=== PATIENT | female | born 1980 | race Hispanic/Latino ===

== ENCOUNTER 2018-07-17 09:59 | Emergency (ER) | payer SELFPAY ==
[2018-07-17] MEDS ORDERED: LEVALBUTEROL 1.25 MG/3 ML NEB ONE (10:09)
--- NOTE | 2018-07-17 10:55 | RAD REPORT ---
EXAM DESCRIPTION: Som Loera (2 Views)07/17/2018 10:47 am CLINICAL HISTORY: Cough COMPARISON: November 2017 FINDINGS: The lungs appear clear of acute infiltrate. The heart is normal size IMPRESSION: No acute abnormalities displayed
--- NOTE | 2018-07-17 11:55 | ER ---
Nurse's Notes [facility] Name: Jessica Brannon Age: 37 yrs Sex: Female : 1980 Arrival Date: 07/17/2018 Time: 09:58 Bed 17 Private MD: Diagnosis: Unspecified asthma with (acute) exacerbation Presentation: 07/17 10:00 Presenting complaint: EMS states: Pt was out running errands when she had an asthma ph attack, was unable to self administer rescue inhaler or neb tx, bystander called 911, Spo2 94% on RA w/ pauly wheezes. Transition of care: patient was not received from another setting of care. Onset of symptoms was July 17, 2018. Risk Assessment: Do you want to hurt yourself or someone else? Patient reports no desire to harm self or others. Initial Sepsis Screen: Does the patient meet any 2 criteria? No. Patient's initial sepsis screen is negative. Does the patient have a suspected source of infection? No. Patient's initial sepsis screen is negative. Care prior to arrival: Medication(s) given: Albuterol Neb x 2, Atrovent Neb x 1, Normal saline infusion, approx 400 mL IV initiated. 20 GA, in the left antecubital area, Med neb given. Oxygen administered. via a nebulizer mask. 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 - Family history:: not pertinent. - Social history:: Smoking status: Patient/guardian denies using tobacco. - Ebola Screening: : No symptoms or risks identified at this time. - Hospitalizations: : No recent hospitalization is reported. Screenin:04 Abuse screen: Denies threats or abuse. Denies injuries from another. Nutritional ph screening: No deficits noted. Tuberculosis screening: No symptoms or risk factors identified. Fall Risk None identified. Assessment: 10:07 General: Appears in no apparent distress. uncomfortable, obese, well groomed, Behavior ph is calm, cooperative, appropriate for age, Denies fever, feeling ill. Pain: Complains of pain in chest Pain currently is 2 out of 10 on a pain scale. Quality of pain is described as "tightness". Neuro: Level of Consciousness is awake, alert, obeys commands, Oriented to person, place, time, situation, Denies weakness dizziness. Cardiovascular: Capillary refill < 3 seconds in bilateral fingers Patient's skin is warm and dry. Respiratory: Reports shortness of breath at rest Airway is patent Respiratory effort is even, Respiratory pattern is regular, symmetrical, Breath sounds with wheezes bilaterally. GI: No signs and/or symptoms were reported involving the gastrointestinal system. Derm: Skin is intact, is healthy with good turgor, Skin is pink, warm \\T\\ dry. Musculoskeletal: Circulation, motion, and sensation intact. Range of motion: intact in all extremities. 11:30 Reassessment: Patient appears in no apparent distress at this time. Patient and/or ph family updated on plan of care and expected duration. Pain level reassessed. Patient is alert, oriented x 3, equal unlabored respirations, skin warm/dry/pink. Patient states symptoms have improved. Vital Signs: 10:02 BP 126 / 82; Pulse 84; Resp 22; Temp 98.2; Pulse Ox 94% on R/A; Weight 97.52 kg; Height ph 5 ft. 5 in. (165.10 cm); 11:00 BP 121 / 75; Pulse 82; Resp 18; Pulse Ox 100% on Nebulizer Mask; ph 11:52 BP 113 / 70; Pulse 75; Resp 18; Temp 97.9; Pulse Ox 99% on R/A; ph 10:02 Body Mass Index 35.78 (97.52 kg, 165.10 cm) ph ED Course: 09:58 Patient arrived in ED. ss 09:58 Keaton Flynn MD is Attending Physician. rn 10:00 Tayler Alex RN is Primary Nurse. ph 10:02 Triage completed. ph 10:04 Arm band placed on. ph 10:04 Patient has correct armband on for positive identification. Placed in gown. Bed in low ph position. Call light in reach. Side rails up X 1. Pulse ox on. NIBP on. Warm blanket given. 10:44 XRAY Chest Pa And Lat (2 Views) In Process Unspecified. EDMS 11:57 No provider procedures requiring assistance completed. ph 11:58 Maintain EMS IV. Dressing intact. Good blood return noted. Site clean \\T\\ dry. Gauge \\T\\ ph site: 20 LAC. IV discontinued, intact, bleeding controlled, No redness/swelling at site. Pressure dressing applied. Administered Medications: 10:35 Drug: Xopenex 1.25 mg Route: Inhalation; ph 12:19 Follow up: Response: No adverse reaction; Wheezing diminished ph Outcome: 11:55 Discharge ordered by . rn 12:20 Discharged to home ambulatory. ph 12:20 Condition: improved 12:20 Discharge instructions given to patient, Instructed on discharge instructions, follow up and referral plans. Demonstrated understanding of instructions, follow-up care. 12:20 Patient left the ED. ph Signatures: Dispatcher [employer] EDMS Keaton Flynn MD MD rn Smirch, Shelby, RN RN ss Hall, Patricia, RN RN ph
--- NOTE | 2018-07-17 11:56 | EDPHYS ---
Physician Documentation [facility] Name: Jessica Brannon Age: 37 yrs Sex: Female : 1980 Arrival Date: 07/17/2018 Time: 09:58 Bed 17 Private MD: ED Physician Keaton Flynn HPI: 07/17 10:01 This 37 yrs old Female presents to ER via Unassigned with complaints of sob. rn 10:01 The patient has shortness of breath at rest. Onset: The symptoms/episode began/occurred rn this morning. Duration: The symptoms are continuous. Associated signs and symptoms: Pertinent positives: non-productive cough, Pertinent negatives: chest pain, dizziness, fever, hemoptysis, loss of consciousness, vomiting. Severity of symptoms: At their worst the symptoms were moderate in the emergency department the symptoms have improved. The patient has experienced similar episodes in the past. The patient has not recently seen a physician. Reports sob, has asthma, is allergic to steroids, reports tongue swelling and abd bloating, feels better after albuterol/atrovent by EMS. . 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 - Family history:: not pertinent. - Social history:: Smoking status: Patient/guardian denies using tobacco. - Ebola Screening: : No symptoms or risks identified at this time. - Hospitalizations: : No recent hospitalization is reported. ROS: 10:01 Constitutional: Negative for fever, chills, and weight loss, Eyes: Negative for injury, rn pain, redness, and discharge, Neck: Negative for injury, pain, and swelling, Cardiovascular: Negative for chest pain, palpitations, and edema, Respiratory: Negative for pleuritic chest pain, Abdomen/GI: Negative for abdominal pain, nausea, vomiting, diarrhea, and constipation, MS/Extremity: Negative for injury and deformity, Skin: Negative for injury, rash, and discoloration, Neuro: Negative for headache, weakness, numbness, tingling, and seizure. Exam: 10:01 Constitutional: This is a well developed, well nourished patient who is awake, alert, rn and in no acute distress. Head/Face: Normocephalic, atraumatic. Eyes: Pupils equal round and reactive to light, extra-ocular motions intact. Lids and lashes normal. Conjunctiva and sclera are non-icteric and not injected. Cornea within normal limits. Periorbital areas with no swelling, redness, or edema. ENT: no stridor, MMM Cardiovascular: tachycardic, regular, no murmur Respiratory: + diffuse bilateral exp wheezing noted, speaking full sentences Abdomen/GI: Soft, non-tender MS/ Extremity: Pulses equal, no cyanosis. Neurovascular intact. Full, normal range of motion. Equal circumference. Neuro: Awake and alert, GCS 15, oriented to person, place, time, and situation. Cranial nerves II-XII grossly intact. Motor strength 5/5 in all extremities. Sensory grossly intact. Vital Signs: 10:02 BP 126 / 82; Pulse 84; Resp 22; Temp 98.2; Pulse Ox 94% on R/A; Weight 97.52 kg; Height ph 5 ft. 5 in. (165.10 cm); 11:00 BP 121 / 75; Pulse 82; Resp 18; Pulse Ox 100% on Nebulizer Mask; ph 11:52 BP 113 / 70; Pulse 75; Resp 18; Temp 97.9; Pulse Ox 99% on R/A; ph 10:02 Body Mass Index 35.78 (97.52 kg, 165.10 cm) ph MDM: 09:58 Patient medically screened. rn 11:10 Differential diagnosis: asthma. rn 11:54 Data reviewed: vital signs, nurses notes, radiologic studies, plain films, and as a rn result, I will discharge patient. Counseling: I had a detailed discussion with the patient and/or guardian regarding: the historical points, exam findings, and any diagnostic results supporting the discharge/admit diagnosis, radiology results, the need for outpatient follow up, to return to the emergency department if symptoms worsen or persist or if there are any questions or concerns that arise at home. Response to treatment: the patient's symptoms have markedly improved after treatment, and as a result, I will discharge patient. Special discussion: I discussed with the patient/guardian in detail that at this point there is no indication for admission to the hospital. It is understood, however, that if the symptoms persist or worsen the patient needs to return immediately for re-evaluation. ED course: Pt still states allergic to steroids, on abx for sinus infection, neg cxr, feels much better, will dc home with inhaler use and pcp f/u. . 07/17 09:59 Order name: XRAY Chest Pa And Lat (2 Views); Complete Time: 11:00 rn Administered Medications: 10:35 Drug: Xopenex 1.25 mg Route: Inhalation; ph 12:19 Follow up: Response: No adverse reaction; Wheezing diminished ph Disposition: 07/17/18 11:55 Discharged to Home. Impression: Unspecified asthma with (acute) exacerbation. - Condition is Stable. - Discharge Instructions: Asthma, Adult, Bronchospasm, Adult, How to Use an Inhaler. - Medication Reconciliation Form, Thank You Letter, Antibiotic Education, Prescription Opioid Use, Work release form form. - Follow up: Private Physician; When: As needed; Reason: Recheck today's complaints, Re-evaluation by your physician. - Problem is new. - Symptoms have improved. Signatures: Dispatcher [employer] EDMS Keaton Flynn MD MD rn AlexTayler RN RN ph Corrections: (The following items were deleted from the chart) 12:20 11:55 07/17/2018 11:55 Discharged to Home. Impression: Unspecified asthma with (acute) ph exacerbation. Condition is Stable. Forms are Medication Reconciliation Form, Thank You Letter, Antibiotic Education, Prescription Opioid Use. Follow up: Private Physician; When: As needed; Reason: Recheck today's complaints, Re-evaluation by your physician. Problem is new. Symptoms have improved. rn
[2018-07-17 12:27] VITALS: BP 113/70; TEMP 97.9; O2SAT 99
== END 2018-07-17 12:20 | disposition home or self-care (01) ==
LOC: ER 09:59
DX: J45.901 Unspecified asthma with (acute) exacerbation (principal)
CPT/HCPCS: 71046; 99284

== ENCOUNTER 2018-07-22 23:26 | Emergency (ER) | payer SELFPAY ==
[2018-07-22] MEDS ORDERED: LEVALBUTEROL 1.25 MG/3 ML NEB ONE (23:44)
[2018-07-22] MEDS ORDERED: MAGNESIUM SULFATE 1 gm IVPB 1 GM/100 ML BAG IV ONE (23:44)
[2018-07-22] MEDS ORDERED: IPRATROPIUM BROM 0.5MG/2.5ML ONE (23:44)
[2018-07-22] MEDS ORDERED: NA CHLORIDE 0.9% 1,000 ML ONE (23:45)
[2018-07-23] MEDS ORDERED: IPRATROPIUM BROM 0.5MG/2.5ML ONE (02:23)
[2018-07-23] MEDS ORDERED: ALBUTEROL 2.5 MG/3 ML NEB SOL ONE (02:23)
--- NOTE | 2018-07-23 03:03 | EDPHYS ---
Physician Documentation [facility] Name: Jessica Brannon Age: 37 yrs Sex: Female : 1980 Arrival Date: 07/22/2018 Time: 23:31 Bed 14 Private MD: ED Physician Keaton Flynn HPI: 07/22 23:48 This 37 yrs old Female presents to ER via Wheelchair with complaints of Asthma rn Exacerbation. 23:48 The patient presents to the emergency department with wheezing, that began without any rn particular precipitating event. Onset: The symptoms/episode began/occurred today. Modifying factors: The symptoms are alleviated by nothing, the symptoms are aggravated by nothing. Severity of symptoms: At their worst the symptoms were mild in the emergency department the symptoms are unchanged. The patient has experienced similar episodes in the past. The patient has been recently seen by a physician: The patient has been recently seen at the [facility] Emergency Department. 23:48 Seen by me a few days ago, felt better, returns for wheezing again, again states rn allergic to steroids and cannot take them. Not as bad as she felt last time. . 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 - Social history:: Smoking status: Patient/guardian denies using tobacco. - Ebola Screening: : No symptoms or risks identified at this time. - Family history:: not pertinent. - Hospitalizations: : No recent hospitalization is reported. ROS: 23:48 Constitutional: Negative for fever, chills, and weight loss, Eyes: Negative for injury, rn pain, redness, and discharge, Neck: Negative for injury, pain, and swelling, Cardiovascular: Negative for chest pain, palpitations, and edema, Respiratory: Negative for pleuritic chest pain Abdomen/GI: Negative for abdominal pain, nausea, vomiting, diarrhea, and constipation, MS/Extremity: Negative for injury and deformity, Skin: Negative for injury, rash, and discoloration, Neuro: Negative for headache, weakness, numbness, tingling, and seizure. Exam: 23:48 Constitutional: This is a well developed, well nourished patient who is awake, alert, rn + mild tachypnea Head/Face: Normocephalic, atraumatic. Eyes: Pupils equal round and reactive to light, extra-ocular motions intact. Lids and lashes normal. Conjunctiva and sclera are non-icteric and not injected. Cornea within normal limits. Periorbital areas with no swelling, redness, or edema. ENT: MMM Cardiovascular: Regular rate and rhythm with a normal S1 and S2. No gallops, murmurs, or rubs. Normal PMI, no JVD. No pulse deficits. Respiratory: mild tachypnea with bilateral mild wheezing noted, no retractions, speaking full sentences Abdomen/GI: Soft, non-tender, with normal bowel sounds. No distension or tympany. No guarding or rebound. No evidence of tenderness throughout. Skin: Warm, dry with normal turgor. Normal color with no rashes, no lesions, and no evidence of cellulitis. MS/ Extremity: Pulses equal, no cyanosis. Neurovascular intact. Full, normal range of motion. Equal circumference. Neuro: Awake and alert, GCS 15, oriented to person, place, time, and situation. Cranial nerves II-XII grossly intact. Motor strength 5/5 in all extremities. Sensory grossly intact. Cerebellar exam normal. Normal gait. Vital Signs: 23:35 BP 137 / 97; Pulse 100; Resp 22; Pulse Ox 95% on R/A; Weight 95.25 kg; Height 5 ft. 5 lp1 in. (165.10 cm); Pain 0/10; 07/23 01:00 BP 110 / 69; Pulse 85; Resp 18; Pulse Ox 97% ; jb4 02:00 BP 107 / 88; Pulse 72; Resp 20; Pulse Ox 98% on R/A; jb4 03:08 BP 131 / 80; Pulse 89; Resp 18; Pulse Ox 100% on R/A; jb4 07/22 23:35 Body Mass Index 34.95 (95.25 kg, 165.10 cm) lp1 MDM: 07/22 23:31 Patient medically screened. rn 07/23 03:00 Differential diagnosis: acute asthma, reactive airway. Data reviewed: vital signs, rn nurses notes, lab test result(s), radiologic studies, plain films, and as a result, I will discharge patient. Counseling: I had a detailed discussion with the patient and/or guardian regarding: the historical points, exam findings, and any diagnostic results supporting the discharge/admit diagnosis, radiology results, the need for outpatient follow up, to return to the emergency department if symptoms worsen or persist or if there are any questions or concerns that arise at home. Response to treatment: the patient's symptoms have markedly improved after treatment, and as a result, I will discharge patient. 07/22 23: Order name: XRAY Chest (1 view) rn 07/22 23: Order name: IV Start; Complete Time: 00:03 rn Administered Medications: 07/22 23: Drug: Xopenex (3) 1.25 mg Route: Inhalation; lp1 23:44 Drug: AtroVENT Aerosol 0.5 mg Route: Inhalation; lp1 23:51 Drug: NS 0.9% 1000 ml Route: IV; Rate: 1000 ml; Site: left forearm; 4 07/23 00:51 Follow up: Response: No adverse reaction; IV Status: Completed infusion 4 07/22 23:51 Drug: Magnesium Sulfate 1 grams Route: IVPB; Infused Over: 1 hrs; Site: left forearm; 4 07/23 00:51 Follow up: Response: No adverse reaction; IV Status: Completed infusion jb4 02:18 Drug: Albuterol 2.5 mg Route: Inhalation; jb4 03:16 Follow up: Response: No adverse reaction; Wheezing diminished jb4 02:18 Drug: AtroVENT Aerosol 0.5 mg Route: Inhalation; jb4 03:16 Follow up: Response: No adverse reaction; Wheezing diminished jb4 Disposition: 07/23/18 03:02 Discharged to Home. Impression: Asthma. - Condition is Stable. - Discharge Instructions: Asthma, Acute Bronchospasm. - Prescriptions for Albuterol Sulfate 2.5 mg /3 mL (0.083 %) Inhalation Solution for Nebulization - inhale 1 unit by NEBULIZATION route every 8 hours As needed; 1 box. - Medication Reconciliation Form, Thank You Letter, Antibiotic Education, Prescription Opioid Use, Work release form form. - Follow up: Private Physician; When: As needed; Reason: Recheck today's complaints, Re-evaluation by your physician. - Problem is new. - Symptoms have improved. Signatures: Dispatcher [employer] EDKeaton Zavala MD MD rn Pena, Laura, RN RN lp1 Brian Hernandez RN RN jb4 Corrections: (The following items were deleted from the chart) 03:18 03:02 07/23/2018 03:02 Discharged to Home. Impression: Asthma. Condition is Stable. jb4 Forms are Medication Reconciliation Form, Thank You Letter, Antibiotic Education, Prescription Opioid Use. Follow up: Private Physician; When: As needed; Reason: Recheck today's complaints, Re-evaluation by your physician. Problem is new. Symptoms have improved. rn
--- NOTE | 2018-07-23 03:03 | ER ---
Nurse's Notes [facility] Name: Jessica Brannon Age: 37 yrs Sex: Female : 1980 Arrival Date: 07/22/2018 Time: 23:31 Bed 14 Private MD: Diagnosis: Asthma Presentation: 07/22 23:32 Presenting complaint: Patient states: Difficulty breathing that began this afternoon; lp1 Hx of asthma; feeling short of breath. Transition of care: patient was not received from another setting of care. Onset of symptoms was July 22, 2018. Risk Assessment: Do you want to hurt yourself or someone else? Patient reports no desire to harm self or others. Initial Sepsis Screen: Does the patient meet any 2 criteria? No. Patient's initial sepsis screen is negative. Does the patient have a suspected source of infection? No. Patient's initial sepsis screen is negative. Care prior to arrival: None. 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 - Social history:: Smoking status: Patient/guardian denies using tobacco. - Ebola Screening: : No symptoms or risks identified at this time. - Family history:: not pertinent. - Hospitalizations: : No recent hospitalization is reported. Screenin:35 Abuse screen: Denies threats or abuse. Denies injuries from another. Nutritional lp1 screening: No deficits noted. Tuberculosis screening: No symptoms or risk factors identified. Fall Risk None identified. Assessment: 23:51 General: Appears in no apparent distress. uncomfortable, Behavior is cooperative, jb4 anxious. Pain: Denies pain. Neuro: Level of Consciousness is awake, alert, obeys commands, Oriented to person, place, time, situation. Cardiovascular: Heart tones S1 S2 present Patient's skin is warm and dry. Respiratory: Airway is patent Respiratory effort is even, labored, Respiratory pattern is regular, symmetrical, Breath sounds are diminished bilaterally. Breath sounds with wheezes bilaterally. GI: No signs and/or symptoms were reported involving the gastrointestinal system. : No signs and/or symptoms were reported regarding the genitourinary system. EENT: No signs and/or symptoms were reported regarding the EENT system. Derm: Skin is intact, Skin is pink, warm \T\ dry. Musculoskeletal: No signs and/or symptoms reported regarding the musculoskeletal system. 07/23 01:00 Reassessment: Patient appears in no apparent distress at this time. Patient and/or jb4 family updated on plan of care and expected duration. Pain level reassessed. Patient is alert, oriented x 3, equal unlabored respirations, skin warm/dry/pink. Patient states feeling better. Patient states symptoms have improved. 02:00 Reassessment: Patient appears in no apparent distress at this time. Patient and/or jb4 family updated on plan of care and expected duration. Pain level reassessed. Patient is alert, oriented x 3, equal unlabored respirations, skin warm/dry/pink. Patient states feeling better. Patient states symptoms have improved. 02:00 Respiratory: Breath sounds with wheezes bilaterally. jb4 03:08 Reassessment: Patient appears in no apparent distress at this time. Patient and/or jb4 family updated on plan of care and expected duration. Pain level reassessed. Patient is alert, oriented x 3, equal unlabored respirations, skin warm/dry/pink. Wheezing has improved. Patient states feeling better. Patient states symptoms have improved. Vital Signs: 07/22 23:35 BP 137 / 97; Pulse 100; Resp 22; Pulse Ox 95% on R/A; Weight 95.25 kg; Height 5 ft. 5 lp1 in. (165.10 cm); Pain 0/10; 07/23 01:00 BP 110 / 69; Pulse 85; Resp 18; Pulse Ox 97% ; jb4 02:00 BP 107 / 88; Pulse 72; Resp 20; Pulse Ox 98% on R/A; jb4 03:08 BP 131 / 80; Pulse 89; Resp 18; Pulse Ox 100% on R/A; jb4 07/22 23:35 Body Mass Index 34.95 (95.25 kg, 165.10 cm) lp1 ED Course: 07/22 23:31 Patient arrived in ED. rn 23:31 Keaton Flynn MD is Attending Physician. rn 23:33 Triage completed. lp1 23:35 Arm band placed on right wrist. lp1 23:35 Patient has correct armband on for positive identification. Placed in gown. Bed in low lp1 position. Call light in reach. Pulse ox on. NIBP on. 23:40 Brian Hernandez, RN is Primary Nurse. jb4 23:51 Inserted saline lock: 22 gauge in left forearm, using aseptic technique. jb4 07/23 01:48 XRAY Chest (1 view) In Process Unspecified. EDMS 03:17 No provider procedures requiring assistance completed. IV discontinued, intact, jb4 bleeding controlled. Administered Medications: 07/22 23:44 Drug: Xopenex (3) 1.25 mg Route: Inhalation; lp1 23:44 Drug: AtroVENT Aerosol 0.5 mg Route: Inhalation; lp1 23:51 Drug: NS 0.9% 1000 ml Route: IV; Rate: 1000 ml; Site: left forearm; jb4 07/23 00:51 Follow up: Response: No adverse reaction; IV Status: Completed infusion jb4 07/22 23:51 Drug: Magnesium Sulfate 1 grams Route: IVPB; Infused Over: 1 hrs; Site: left forearm; jb4 07/23 00:51 Follow up: Response: No adverse reaction; IV Status: Completed infusion jb4 02:18 Drug: Albuterol 2.5 mg Route: Inhalation; jb4 03:16 Follow up: Response: No adverse reaction; Wheezing diminished jb4 02:18 Drug: AtroVENT Aerosol 0.5 mg Route: Inhalation; jb4 03:16 Follow up: Response: No adverse reaction; Wheezing diminished jb4 Outcome: 03:02 Discharge ordered by . rn 03:17 Discharged to home ambulatory. jb4 03:17 Condition: stable 03:17 Discharge instructions given to patient, Instructed on discharge instructions, follow up and referral plans. medication usage, Demonstrated understanding of instructions, follow-up care, medications, Prescriptions given X 1. 03:18 Patient left the ED. jb4 Signatures: Dispatcher [employer] EDMS Keaton Flynn MD MD rn Pena, Laura, RN RN lp1 Brian Hernandez, RN RN jb4 Corrections: (The following items were deleted from the chart) 02:11 07/22 23:51 Respiratory: Airway is patent Respiratory effort is even, labored, jb4 Respiratory pattern is regular, symmetrical, Breath sounds with wheezes bilaterally. jb4 07/23 03:16 02:54 Response: No adverse reaction; Wheezing unchanged jb4 jb4 03:08 Reassessment: Patient appears in no apparent distress at this time. No changes jb4 from previously documented assessment. Patient and/or family updated on plan of care and expected duration. Pain level reassessed. Patient is alert, oriented x 3, equal unlabored respirations, skin warm/dry/pink. Patient states feeling better. jb4 02:55 Response: No adverse reaction; Wheezing unchanged jb4 jb4
[2018-07-23 03:26] VITALS: BP 131/80; O2SAT 100
--- NOTE | 2018-07-23 08:08 | RAD REPORT ---
EXAM DESCRIPTION: RAD - Chest Single View - 07/23/2018 1:48 am CLINICAL HISTORY: Cough, dyspnea COMPARISON: July 17 TECHNIQUE: AP portable chest image was obtained 2352 hours . FINDINGS: Lung volumes are low. Atelectasis changes are present. No focal infiltrate, mass or failur e finding. Heart and vasculature are normal. No measurable pleural effusion and no pneumothorax. No g ross bony abnormality seen. No acute aortic findings suspected. IMPRESSION: Minimal atelectasis with no acute cardiopulmonary finding.
== END 2018-07-23 03:18 | disposition home or self-care (01) ==
LOC: ER 23:26
DX: J45.909 Unspecified asthma, uncomplicated (principal); Z88.8 Allergy status to other drugs, medicaments and biological substances
CPT/HCPCS: 71045; 96365; 99284; J3475; J7030

== ENCOUNTER 2018-07-28 00:08 | Inpatient (IN) | payer SELFPAY ==
[2018-07-28] MEDS ORDERED: DEXAMETHASONE 4 MG/ML VIAL ONE (00:18)
[2018-07-28] MEDS ORDERED: Magnesium Sulfate 2gm IVPB 2 G/50 ML BAG IV ONE (00:18)
--- NOTE | 2018-07-28 00:29 | ER ---
Nurse's Notes [facility] Name: Jessica Brannon Age: 37 yrs Sex: Female : 1980 Arrival Date: 07/28/2018 Time: 00:10 Bed 16 Private MD: Diagnosis: Asthma;Hypoxemia Presentation: 07/28 00:15 Presenting complaint: Patient states: SHORTNESS OF BREATH. Transition of care: patient bp was not received from another setting of care. Onset of symptoms was July 27, 2018 at 22:00. Risk Assessment: Do you want to hurt yourself or someone else? Patient reports no desire to harm self or others. Initial Sepsis Screen: Does the patient meet any 2 criteria? RR > 20 per min. No. Patient's initial sepsis screen is negative. Does the patient have a suspected source of infection? No. Patient's initial sepsis screen is negative. Care prior to arrival: None. 00:15 Method Of Arrival: Wheelchair bp 00:15 Acuity: JACINTA 2 bp Triage Assessment: 00:15 General: Appears distressed, uncomfortable, obese, Behavior is cooperative, appropriate bp for age, agitated, anxious. Pain: Denies pain. EENT: No deficits noted. Neuro: Level of Consciousness is awake, alert, obeys commands, Oriented to person, place, time, situation, Appropriate for age. Cardiovascular: No deficits noted. 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 GI: No signs and/or symptoms were reported involving the gastrointestinal system. : No signs and/or symptoms were reported regarding the genitourinary system. Derm: No deficits noted. Musculoskeletal: Circulation, motion, and sensation intact. Range of motion: intact in all extremities. 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 - Social history:: Smoking status: Patient/guardian denies using tobacco. - Ebola Screening: : Patient negative for fever greater than or equal to 101.5 degrees Fahrenheit, and additional compatible Ebola Virus Disease symptoms Patient denies exposure to infectious person Patient denies travel to an Ebola-affected area in the 21 days before illness onset No symptoms or risks identified at this time. - Family history:: not pertinent. Screenin:21 Abuse screen: Denies threats or abuse. Denies injuries from another. Nutritional bp screening: No deficits noted. Tuberculosis screening: No symptoms or risk factors identified. Fall Risk None identified. Assessment: 00:20 General: 37YO HF P/W SOB, H/O ASTHMA. PT UNABLE TO SPEAK IN COMPLETE SENTENCES, 79% ON bp RA ON ARRIVAL, STATES NO RELIEF WITH HOME NEB TREATMENTS. Cardiovascular: Rhythm is sinus rhythm. Respiratory: Airway is patent Respiratory effort is labored, Respiratory pattern is symmetrical, tachypnea Breath sounds with wheezes bilaterally. 00:47 Reassessment: Patient and/or family updated on plan of care and expected duration. Pain ea level reassessed. Pt placed on bipap per respiratory, pt tolerating well. Alert and oriented x 4. No s/s of pain at this time. 01:26 Reassessment: : JASON BARNES [phone]. ea 01:59 Reassessment: Patient and/or family updated on plan of care and expected duration. Pain ea level reassessed. Pt remains on bipap, pt tolerating well. Denies pain. Patient alert and oriented x 3. Denies pain at this time Patient states symptoms have improved. Vital Signs: 00:15 Pulse Ox 79% on R/A; Weight 86.18 kg; Height 5 ft. 5 in. (165.10 cm); bp 00:48 BP 102 / 57; Pulse 101; Resp 22; Pulse Ox 99% on BiPAP; ea 01:45 BP 106 / 68; Pulse 98; Resp 20; Temp 97.2(TE); Pulse Ox 100% on BiPAP; Pain 0/10; ea 00:15 Body Mass Index 31.62 (86.18 kg, 165.10 cm) bp ED Course: 00:10 Patient arrived in ED. ds1 00:15 Joshua Grier PA is PHCP. cp 00:15 Joshua Fuentes MD is Attending Physician. cp 00:15 Arm band placed on. bp 00:16 Triage completed. bp 00:20 Inserted saline lock: 20 gauge in right antecubital area, using aseptic technique. bp Blood collected. 00:21 Patient has correct armband on for positive identification. Placed in gown. Bed in low bp position. Call light in reach. Side rails up X2. Adult w/ patient. 00:23 Ilene Zheng RN is Primary Nurse. ea 00:27 Raghu Cantrell MD is Hospitalizing Provider. shaina 00:39 X-ray completed. Portable x-ray completed in exam room. Patient tolerated procedure kw well. 00:41 XRAY Chest (1 view) In Process Unspecified. EDMS 02:04 No provider procedures requiring assistance completed. Patient admitted, IV remains in ea place. Administered Medications: 00:20 Drug: Albuterol - atroVENT (3:1) (2.5 mg - 0.5 mg) 3 ml Route: Nebulizer; bp 01:06 Follow up: Response: No adverse reaction; Wheezing diminished ea 00:24 Drug: Decadron - Dexamethasone 10 mg Route: IVP; Site: right antecubital; ea 01:06 Follow up: Response: No adverse reaction; Marked relief of symptoms ea 00:26 Drug: Magnesium Sulfate 2 grams Route: IVPB; Infused Over: 2 hrs; Site: right ea antecubital; 02:08 Follow up: Response: No adverse reaction; IV Status: Completed infusion; IV Intake: 50mlea 00:41 Drug: Zofran 4 mg Route: IVP; Site: right antecubital; ea 01:09 Follow up: Response: No adverse reaction; Nausea is decreased ea 00:42 Drug: Rocephin - (cefTRIAXone) 1 grams Route: IVPB; Infused Over: 30 mins; Site: right ea antecubital; 01:06 Follow up: Response: No adverse reaction; No adverse reaction, administered IVP; No ea adverse reaction, administered slow IVP over 5 min; IV Status: Completed infusion 00:42 Drug: Zithromax 500 mg Route: IVPB; Infused Over: 1 hrs; Site: right antecubital; bp 01:48 Follow up: Response: No adverse reaction; IV Status: Completed infusion; IV Intake: ea 250ml 01:47 Drug: Albuterol 5 mg Route: Inhalation; ea 02:09 Follow up: Response: No adverse reaction; Marked relief of symptoms ea Intake: 01:48 IV: 250ml; Total: 250ml. ea 02:08 IV: 50ml; Total: 300ml. ea Outcome: 00:28 Decision to Hospitalize by Provider. shaina 02:04 Instructed on the need for admit, Demonstrated understanding of instructions. ea 02:29 Patient left the ED. ea Signatures: Dispatcher [employer] EDFL Joshua Fuentes MD MD cha Sanford, Demi ds1 Diya Buckner Corey, PA PA cp Antunez, Elena, RN RN Gume Espana, RN RN bp
--- NOTE | 2018-07-28 00:29 | EDPHYS ---
Physician Documentation [facility] Name: Jessica Brannon Age: 37 yrs Sex: Female : 1980 Arrival Date: 07/28/2018 Time: 00:10 Bed 16 Private MD: ED Physician Joshua Fuentes HPI: 07/28 00:20 This 37 yrs old Female presents to ER via Wheelchair with complaints of shaina Breathing Difficulty. 00:20 The patient has shortness of breath at rest, with light activity. Onset: The shaina symptoms/episode began/occurred 2 hour(s) ago. Duration: The symptoms are continuous, and are steadily getting worse. The patient's shortness of breath has no apparent modifying factors. Associated signs and symptoms: Pertinent positives: non-productive cough. Severity of symptoms: At their worst the symptoms were severe in the emergency department the symptoms are unchanged. The patient has experienced similar episodes in the past, several times. 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 - Social history:: Smoking status: Patient/guardian denies using tobacco. - Ebola Screening: : Patient negative for fever greater than or equal to 101.5 degrees Fahrenheit, and additional compatible Ebola Virus Disease symptoms Patient denies exposure to infectious person Patient denies travel to an Ebola-affected area in the 21 days before illness onset No symptoms or risks identified at this time. - Family history:: not pertinent. ROS: 00:20 Constitutional: Negative for fever, chills, and weight loss, Eyes: Negative for injury, shaina pain, redness, and discharge, ENT: Negative for injury, pain, and discharge, Neck: Negative for injury, pain, and swelling, Cardiovascular: Negative for chest pain, palpitations, and edema, Abdomen/GI: Negative for abdominal pain, nausea, vomiting, diarrhea, and constipation, Back: Negative for injury and pain, : Negative for injury, bleeding, discharge, and swelling, MS/Extremity: Negative for injury and deformity, Skin: Negative for injury, rash, and discoloration, Neuro: Negative for headache, weakness, numbness, tingling, and seizure, Psych: Negative for depression, anxiety, suicide ideation, homicidal ideation, and hallucinations, Allergy/Immunology: Negative for hives, rash, and allergies, Endocrine: Negative for neck swelling, polydipsia, polyuria, polyphagia, and marked weight changes, Hematologic/Lymphatic: Negative for swollen nodes, abnormal bleeding, and unusual bruising. 00:20 Respiratory: Positive for cough, shortness of breath, wheezing, inspiratory, expiratory. Exam: 00:20 Constitutional: This is a well developed, well nourished patient who is awake, alert, shaina and in no acute distress. Head/Face: Normocephalic, atraumatic. Eyes: Pupils equal round and reactive to light, extra-ocular motions intact. Lids and lashes normal. Conjunctiva and sclera are non-icteric and not injected. Cornea within normal limits. Periorbital areas with no swelling, redness, or edema. ENT: Nares patent. No nasal discharge, no septal abnormalities noted. Tympanic membranes are normal and external auditory canals are clear. Oropharynx with no redness, swelling, or masses, exudates, or evidence of obstruction, uvula midline. Mucous membranes moist. Neck: Trachea midline, no thyromegaly or masses palpated, and no cervical lymphadenopathy. Supple, full range of motion without nuchal rigidity, or vertebral point tenderness. No Meningismus. Chest/axilla: Normal chest wall appearance and motion. Nontender with no deformity. No lesions are appreciated. Abdomen/GI: Soft, non-tender, with normal bowel sounds. No distension or tympany. No guarding or rebound. No evidence of tenderness throughout. Back: No spinal tenderness. No costovertebral tenderness. Full range of motion. Female : Normal external genitalia. Skin: Warm, dry with normal turgor. Normal color with no rashes, no lesions, and no evidence of cellulitis. MS/ Extremity: Pulses equal, no cyanosis. Neurovascular intact. Full, normal range of motion. Neuro: Awake and alert, GCS 15, oriented to person, place, time, and situation. Cranial nerves II-XII grossly intact. Motor strength 5/5 in all extremities. Sensory grossly intact. Cerebellar exam normal. Normal gait. Psych: Awake, alert, with orientation to person, place and time. Behavior, mood, and affect are within normal limits. 00:20 Cardiovascular: Rate: tachycardic, Rhythm: regular, Pulses: Pulses are 4+ in bilateral radial, brachial, femoral, popliteal, posterior tibial and and dorsalis pedis arteries.. Heart sounds: normal, Edema: is not appreciated, JVD: 00:25 Respiratory: moderate respiratory distress is noted, Respirations: labored breathing, [facility] Breath sounds: decreased breath sounds, rhonchi, wheezing: expiratory 00:25 Musculoskeletal/extremity: DVT Exam: No signs of deep vein thrombosis. no pain, no swelling, no tenderness, negative Homans' sign noted on exam, no appreciated bluish discoloration, no erythema, no increased warmth. Vital Signs: 00:15 Pulse Ox 79% on R/A; Weight 86.18 kg; Height 5 ft. 5 in. (165.10 cm); bp 00:48 BP 102 / 57; Pulse 101; Resp 22; Pulse Ox 99% on BiPAP; ea 01:45 BP 106 / 68; Pulse 98; Resp 20; Temp 97.2(TE); Pulse Ox 100% on BiPAP; Pain 0/10; ea 00:15 Body Mass Index 31.62 (86.18 kg, 165.10 cm) bp MDM: 00:17 Patient medically screened. cp 00:23 Data reviewed: vital signs, nurses notes, lab test result(s), EKG, radiologic studies, shaina plain films. 07/28 00:20 Order name: Basic Metabolic Panel; Complete Time: [facility] 07/28 00:20 Order name: CBC with Diff; Complete Time: : [facility] 07/28 00:20 Order name: LFT's; Complete Time: [facility] 07/28 00:20 Order name: Magnesium; Complete Time: : [facility] 07/28 00:20 Order name: NT PRO-BNP; Complete Time: : [facility] 07/28 00:20 Order name: PT-INR; Complete Time: : [facility] 07/28 00:20 Order name: Troponin (emerg Dept Use Only); Complete Time: : [facility] 07/28 00:20 Order name: XRAY Chest (1 view) [facility] 07/28 00:20 Order name: Blood Culture Adult (2) [facility] 07/28 00:20 Order name: BIPAP [facility] 07/28 00:20 Order name: ABG; Complete Time: 01:18 [facility] 07/28 00:49 Order name: Urinalysis [facility] 07/28 01:53 Order name: Urine Dipstick--Ancillary (enter results) [place] 07/28 00:20 Order name: EKG; Complete Time: 00:21 [facility] 07/28 00:20 Order name: Cardiac monitoring; Complete Time: 00:24 [facility] 07/28 00:20 Order name: EKG - Nurse/Tech; Complete Time: 00:24 [facility] 07/28 00:20 Order name: IV Saline Lock; Complete Time: 00:24 [facility] 07/28 00:20 Order name: Labs collected and sent; Complete Time: 00:24 [facility] 07/28 00:20 Order name: O2 Per Protocol; Complete Time: 00:24 [facility] 07/28 00:20 Order name: O2 Sat Monitoring; Complete Time: 00:24 [facility] 07/28 00:36 Order name: CONS Physician Consult EDOH 07/28 00:48 Order name: Regular EDOH Administered Medications: 00:20 Drug: Albuterol - atroVENT (3:1) (2.5 mg - 0.5 mg) 3 ml Route: Nebulizer; bp 01:06 Follow up: Response: No adverse reaction; Wheezing diminished ea 00:24 Drug: Decadron - Dexamethasone 10 mg Route: IVP; Site: right antecubital; ea 01:06 Follow up: Response: No adverse reaction; Marked relief of symptoms ea 00:26 Drug: Magnesium Sulfate 2 grams Route: IVPB; Infused Over: 2 hrs; Site: right ea antecubital; 02:08 Follow up: Response: No adverse reaction; IV Status: Completed infusion; IV Intake: 50mlea 00:41 Drug: Zofran 4 mg Route: IVP; Site: right antecubital; ea 01:09 Follow up: Response: No adverse reaction; Nausea is decreased ea 00:42 Drug: Rocephin - (cefTRIAXone) 1 grams Route: IVPB; Infused Over: 30 mins; Site: right ea antecubital; 01:06 Follow up: Response: No adverse reaction; No adverse reaction, administered IVP; No ea adverse reaction, administered slow IVP over 5 min; IV Status: Completed infusion 00:42 Drug: Zithromax 500 mg Route: IVPB; Infused Over: 1 hrs; Site: right antecubital; bp 01:48 Follow up: Response: No adverse reaction; IV Status: Completed infusion; IV Intake: ea 250ml 01:47 Drug: Albuterol 5 mg Route: Inhalation; ea 02:09 Follow up: Response: No adverse reaction; Marked relief of symptoms ea Disposition: 07/28/18 00:28 Hospitalization ordered by Raghu Cantrell for Inpatient Admission. Preliminary diagnosis are Asthma, Hypoxemia. - Bed requested for Intensive Care Unit. - Status is Inpatient Admission. ea - Condition is Serious. - Problem is new. - Symptoms have improved. UTI on Admission? No Signatures: Dispatcher [employer] EDMS Ericka Cuevas RN RN mw Anderson, Corey, MD MD cha Page, Corey, PA PA cp Antunez, Elena, RN RN Gume Espana RN RN bp Corrections: (The following items were deleted from the chart) 00:35 00:28 Hospitalization Ordered by Raghu Cantrell MD for Inpatient Admission. Preliminary diagnosis is Asthma; Hypoxemia. Bed requested for Intensive Care Unit. Status is Inpatient Admission. Condition is Serious. Problem is new. Symptoms have improved. UTI on Admission? No. [facility] 02:29 00:35 07/28/2018 00:28 Hospitalization Ordered by Raghu Cantrell MD for Inpatient ea Admission. Preliminary diagnosis is Asthma; Hypoxemia. Bed requested for Intensive Care Unit. Status is Inpatient Admission. Condition is Serious. Problem is new. Symptoms have improved. UTI on Admission? No. mw
[2018-07-28 00:33] LABS: Arterial Blood Carboxyhemoglob 0.9 % (0-1.5); Blood Gas Oxyhemoglobin 89.2 % (94-97); Blood O2 Saturation 90.9 % (92-98.5)
[2018-07-28] MEDS ORDERED: AZITHROMYCIN 500 MG/250 ML BAG ONE (00:39)
[2018-07-28] MEDS ORDERED: CEFTRIAXONE/SWI 1gm 1 GM/10 ML SYR ONE (00:39)
[2018-07-28] MEDS ORDERED: ONDANSETRON 4 MG/2 ML VIAL ONE (00:43)
[2018-07-28] MEDS ORDERED: MAGNESIUM HYDROXIDE 8% 30 ML PO PRN (00:46)
[2018-07-28] MEDS ORDERED: ALPRAZOLAM 0.25 MG TABLET PO PRN (00:46)
[2018-07-28] MEDS ORDERED: ONDANSETRON 4 MG/2 ML VIAL IV PRN (00:46)
[2018-07-28] MEDS ORDERED: ACETAMINOPHEN 500 MG TAB PO PRN (00:46)
[2018-07-28] MEDS ORDERED: NA CHLORIDE 0.9% 1,000 ML IV SCH (01:00)
[2018-07-28] MEDS: IPRATROPIUM BROM 0.5MG/2.5ML NEB SCH ×4 (01:01→19:30)
[2018-07-28] MEDS: ALBUTEROL 2.5 MG/3 ML NEB SOL NEB SCH ×4 (01:02→19:30)
[2018-07-28 01:03] LABS: Absolute Lymphocytes (CBC) 3.9 K/uL (0.7-4.9); Absolute Monocytes 1.1 K/uL (0.1-1.3); Absolute Neutrophil 7.5 K/uL (1.8-8.0); Eosinophils % 8.2 % (0-4.4); Hematocrit 45.4 % (36.0-45.0); Lymphocytes % 28.2 % (15.3-44.8); MCH 30.1 pg (27.0-35.0); MCV 88.2 fL (80-100); Monocytes % 7.8 % (3.3-12.3); RBC Red Blood Cell Count 5.15 M/uL (3.86-4.86)
[2018-07-28 01:06] LABS: Protime INR 0.95
[2018-07-28 01:19] LABS: ALT/SGPT 73 U/L (12-78); AST/SGOT 36 U/L (15-37); Albumin 4.1 g/dL (3.4-5.0); Alkaline Phosphatase 74 U/L (45-117); BUN Blood Urea Nitrogen 13 mg/dL (7-18); Bicarbonate 29 mmol/L (21-32); Bilirubin Direct 0.1 mg/dL (0-0.2); Bilirubin Total 0.5 mg/dL (0.2-1.0); Glucose Level 100 mg/dL (74-106); Magnesium 2.3 mg/dL (1.8-2.4); NT PRO-BNP 15 pg/mL (<125); Potassium 3.5 mmol/L (3.5-5.1); Protein, Total 8.2 g/dL (6.4-8.2); Sodium Level 140 mmol/L (136-145); Troponin (Emerg Dept Use Only) < 0.02 ng/mL (0.0-0.045)
[2018-07-28] MEDS ORDERED: ALBUTEROL 2.5 MG/3 ML NEB SOL ONE (01:51)
[2018-07-28 02:58] VITALS: BMI 35.7
[2018-07-28 03:43] LABS: Urine Blood TRACE (NEG); Urine Glucose NEGATIVE (NEG); Urine Protein NEGATIVE (NEG)
--- NOTE | 2018-07-28 07:21 | P.HP ---
Certification for Inpatient Patient admitted to: Inpatient With expected LOS: >2 Midnights Patient will require the following post-hospital care: None Practitioner: I am a practitioner with admitting privileges, knowledge of patient current condition, hospital course, and medical plan of care. Services: Services provided to patient in accordance with Admission requirements found in Title 42 Section 412.3 of the Code of Federal Regulations Patient History Date of Service: 07/28/18 Reason for admission: Shortness of breath/asthma exacerbation History of Present Illness: Patient is a 37-year-old female who was admitted to the hospital with difficulty breathing. Patient has a history of asthma. Patient had diffuse wheezing on arrival. She has been shortness of breath for the last 2-3 days. She was in the ER a couple of days ago with similar complaints. She states that her breathing has not improved. She came into the emergency room and she was hypoxic with O2 sats of 78% on room air. She was started on BiPAP and nebulizer treatments. She was also given IV steroids. Clinically she appears to be doing better although she is wheezing diffusely. She is on BiPAP support and will go ahead and admit her to the ICU for the next 24-48 hrs. As she improves hopefully we can get her transfer to the general medical floor. Allergies No Known Drug Allergies Allergy (Verified 12/17/17 18:43) Unknown No Known Allergies Allergy (Uncoded 12/17/17 18:04) Unknown Home Medications: Albuterol Sulfate 1 dose NEB BIDP PRN 04/09/15 Albuterol Sulfate [Proair Hfa] 2 puff IH QIDP PRN 12/17/17 [employer] Beltre/PE/Br-Phenir [Bromatan-Dm Suspension] 10 ml PO TIDP PRN 12/17/17 Montelukast [Singulair] 10 mg PO DAILY 07/28/18 - Past Medical/Surgical History Has patient received pneumonia vaccine in the past: No Diabetic: No -: asthma -: appendectomy - Family History Father Medical History: Heart disease, Hypertension, Stroke Mother Medical History: Heart disease, Diabetes - Social History Smoking Status: Never smoker Alcohol use: No CD- Drugs: No Caffeine use: Yes Place of Residence: Home Review of Systems 10-point ROS is otherwise unremarkable Physical Examination - Vital Signs Temperature: 97.9 F Blood Pressure: 120/75 Pulse: 87 Respirations: 17 Pulse Ox (%): 98 - Physical Exam General: Alert, In no apparent distress, Oriented x3 HEENT: Atraumatic, PERRLA, Mucous membr. moist/pink, EOMI, Sclerae nonicteric Neck: Supple, 2+ carotid pulse no bruit, No LAD, Without JVD or thyroid abnormality Respiratory: Expiratory wheezes, Inspiratory wheezes Cardiovascular: Other (Tachyarrhythmia) Gastrointestinal: Normal bowel sounds, Soft and benign, Non-distended, No tenderness Musculoskeletal: No clubbing, No swelling, No tenderness Integumentary: No rashes Neurological: Normal gait, Normal speech, Normal strength at 5/5 x4 extr, Normal tone, Sensation intact, Cranial nerves 3-12 intact, Normal affect Lymphatics: No axilla or inguinal lymphadenopathy - Studies Laboratory Data (last 24 hrs) 07/28/18 00:15: PT 11.2, INR 0.95 07/28/18 00:15: WBC 13.7 H, Hgb 15.5 H, Hct 45.4 H, Plt Count 310 07/28/18 00:15: Sodium 140, Potassium 3.5, BUN 13, Creatinine 0.80, Glucose 100 , Magnesium 2.3, Total Bilirubin 0.5, AST 36, ALT 73, Alkaline Phosphatase 74 Assessment & Plan - Problems (Diagnosis) (1) Respiratory distress Current Visit: Yes Status: Acute (2) Acute asthma exacerbation Onset Date: 12/18/17 Current Visit: No Status: Acute (3) Hypoxia Current Visit: No Status: Acute (4) Leukocytosis Current Visit: Yes Status: Acute - Plan Plan: 1. Continue with nebs and steroid use 2. Continue with BiPAP support; wean off gradually as oxygenation improves 3. Peak flows 4. If symptoms worsen then will get pulmonary consultation 5. GI and DVT prophylaxis Discharge Plan: Home Plan to discharge in: Greater than 2 days - Advance Directives Does patient have a Living Will: No Does patient have a Durable POA for Healthcare: No - Code Status/Comfort Care Code Status Assessed: Yes Code Status: Full Code Critical Care: Yes Time Spent Managing PTS Care (In Minutes): 50
[2018-07-28] MEDS ORDERED: INFLUENZA VACCINE (for 3y+) 0.5 ML DOSE IMVAC ONE (08:00)
[2018-07-28] MEDS ORDERED: PNEUMOCOCCAL VACCINE 0.5 ML IMVAC ONE (08:00)
--- NOTE | 2018-07-28 08:28 | RAD REPORT ---
EXAM DESCRIPTION: RAD - Chest Single View - 07/28/2018 12:40 am CLINICAL HISTORY: Shortness of breath COMPARISON: July 22 TECHNIQUE: AP portable chest image was obtained 0034 hours . FINDINGS: No focal lung parenchymal process. Interstitial markings are stable. Heart and vasculature are normal. No measurable pleural effusion and no pneumothorax. No gross bony abnormality seen. No a cute aortic findings suspected. IMPRESSION: No acute cardiopulmonary process. No significant interval change.
[2018-07-28] MEDS: ENOXAPARIN 40 MG/0.4 ML SQ SCH (08:34)
--- NOTE | 2018-07-28 10:55 | P.CNS ---
Date of Consult: 07/28/18 Reason for Consult: Asthma exacerbation Chief Complaint: Shortness of breath/asthma exacerbation History of Present Illness: Patient is 37 years of age poorly controlled asthma she has had asthma since the age of 13 uses nebulizers at home does not use any have bronchodilators which had inhaled due to lack of insurance patient is poorly controlled asthma uses nebulizers up to 4 times a day recently got worse change in weather worsening shortness of breath cough congestion she became worse yesterday admitted to the hospital was transferred to the ICU due to hypoxemia is back at her baseline patient takes montelukast and nebulizers at home no other medical issues Allergies No Known Drug Allergies Allergy (Verified 12/17/17 18:43) Unknown No Known Allergies Allergy (Uncoded 12/17/17 18:04) Unknown Home Medications: Albuterol Sulfate 1 dose NEB BIDP PRN 04/09/15 Albuterol Sulfate [Proair Hfa] 2 puff IH QIDP PRN 12/17/17 D-Methorp Beltre/PE/Br-Phenir [Bromatan-Dm Suspension] 10 ml PO TIDP PRN 12/17/17 Montelukast [Singulair] 10 mg PO DAILY 07/28/18 - Past Medical/Surgical History Diabetic: No -: asthma -: appendectomy - Family History Father Medical History: Heart disease, Hypertension, Stroke Mother Medical History: Heart disease, Diabetes - Social History Smoking Status: Never smoker Alcohol use: No CD- Drugs: No Caffeine use: Yes Place of Residence: Home Review of Systems 10-point ROS is otherwise unremarkable Physical Examination Temp Pulse Resp BP Pulse Ox 97.0 F 99 H 22 H 108/69 91 07/28/18 08:00 07/28/18 10:00 07/28/18 10:00 07/28/18 10:00 07/28/18 10:00 General: Alert, Oriented x3, Cooperative HEENT: Atraumatic Neck: Supple Respiratory: Expiratory wheezes Cardiovascular: No edema, Regular rate/rhythm, Normal S1 S2 Gastrointestinal: Normal bowel sounds, Soft and benign Laboratory Data (last 24 hrs) 07/28/18 00:15: PT 11.2, INR 0.95 07/28/18 00:15: WBC 13.7 H, Hgb 15.5 H, Hct 45.4 H, Plt Count 310 07/28/18 00:15: Sodium 140, Potassium 3.5, BUN 13, Creatinine 0.80, Glucose 100 , Magnesium 2.3, Total Bilirubin 0.5, AST 36, ALT 73, Alkaline Phosphatase 74 - Problems (1) Acute asthma exacerbation Onset Date: 12/18/17 Current Visit: No Status: Acute Plan: Patient is 37 years of age with a history of poorly controlled asthma admitted with an exacerbation patient has no insurance does not use any inhaled bronchodilators at home apart from frequent use of nebulizers up to 4 to 5 times a day patient was mildly hypoxic hypercapnic plan is to start her on prednisone inhaled bronchodilators possible discharge home tomorrow to follow up with me Qualifiers: Asthma severity: moderate
[2018-07-28] MEDS: DULERA 200/5 (MOMETASONE/FORMOTEROL) INHALER IH SCH ×2 (10:56→20:26)
[2018-07-28] MEDS: predniSONE 20 MG TAB PO SCH ×2 (12:00→21:00)
--- NOTE | 2018-07-28 15:32 | P.PN ---
Subjective Date of Service: 07/28/18 Chief Complaint: Shortness of breath/asthma exacerbation feels better, moves to floor Physical Examination - Vital Signs Temperature: 98.0 F Blood Pressure: 124/75 Pulse: 92 Respirations: 20 Pulse Ox (%): 91 - Physical Exam General: Alert, In no apparent distress HEENT: Atraumatic, PERRLA, EOMI Neck: Supple, JVD not distended Respiratory: Clear to auscultation bilaterally, Normal air movement Cardiovascular: Regular rate/rhythm, Normal S1 S2 Gastrointestinal: Normal bowel sounds, No tenderness Musculoskeletal: No tenderness Integumentary: No rashes Neurological: Normal speech, Normal tone, Normal affect Lymphatics: No axilla or inguinal lymphadenopathy - Studies Laboratory Data (last 24 hrs) 07/28/18 00:15: PT 11.2, INR 0.95 07/28/18 00:15: WBC 13.7 H, Hgb 15.5 H, Hct 45.4 H, Plt Count 310 07/28/18 00:15: Sodium 140, Potassium 3.5, BUN 13, Creatinine 0.80, Glucose 100 , Magnesium 2.3, Total Bilirubin 0.5, AST 36, ALT 73, Alkaline Phosphatase 74 Medications List Reviewed: Yes Assessment And Plan - Current Problems (Diagnosis) (1) Respiratory distress Current Visit: Yes Status: Acute (2) Acute asthma exacerbation Onset Date: 12/18/17 Current Visit: No Status: Acute Qualifiers: Asthma severity: moderate (3) Hypoxia Current Visit: No Status: Acute - Plan cont nebs cont steroid transfer to floor
[2018-07-29] MEDS: IPRATROPIUM BROM 0.5MG/2.5ML NEB SCH ×3 (01:10→14:00)
[2018-07-29] MEDS: ALBUTEROL 2.5 MG/3 ML NEB SOL NEB SCH ×3 (01:10→14:00)
[2018-07-29 06:35] LABS: BUN Blood Urea Nitrogen 10 mg/dL (7-18); Bicarbonate 26 mmol/L (21-32); Glucose Level 115 mg/dL (74-106); Sodium Level 142 mmol/L (136-145)
--- NOTE | 2018-07-29 06:46 | EKG ---
Test Date: 2018-07-28 Test Time: 00:22:33 Processing Inspector: BP MEASUREMENT RESULTS: Intervals: Rate: 84 ME: 126 QRSD: 86 QT: 366 QTc: 432 [place]: P: 68 ME: 126 QRS: 84 T: 60 INTERPRETIVE STATEMENTS: Normal sinus rhythm Normal ECG Compared to ECG 09/18/2017 00:16:51 Sinus arrhythmia no longer present Electronically Signed On 07-29-18 06:45:17 CDT by Aditya Neely
[2018-07-29] MEDS ORDERED: ALBUTEROL 2.5 MG/3 ML NEB SOL NEB PRN (08:02)
[2018-07-29] MEDS ORDERED: ALBUTEROL INHALER 60 PUFF/8 GM IH PRN (08:02)
[2018-07-29] MEDS ORDERED: MONTELUKAST 10 MG TAB PO SCH (09:00)
[2018-07-29] MEDS: ENOXAPARIN 40 MG/0.4 ML SQ SCH (09:50)
[2018-07-29] MEDS: DULERA 200/5 (MOMETASONE/FORMOTEROL) INHALER IH SCH (09:50)
--- NOTE | 2018-07-29 13:11 | P.DS ---
Admission Date: 07/28/18 Discharge Date: 07/29/18 Disposition: ROUTINE DISCHARGE Discharge Condition: FAIR Reason for Admission: Shortness of breath/asthma exacerbation - Problems (1) Respiratory distress Current Visit: Yes Status: Acute (2) Acute asthma exacerbation Onset Date: 12/18/17 Current Visit: No Status: Acute Qualifiers: Asthma severity: moderate (3) Hypoxia Current Visit: No Status: Acute Brief History of Present Illness: Patient is a 37-year-old female who was admitted to the hospital with difficulty breathing. Patient has a history of asthma. Patient had diffuse wheezing on arrival. She has been shortness of breath for the last 2-3 days. She was in the ER a couple of days ago with similar complaints. She states that her breathing has not improved. She came into the emergency room and she was hypoxic with O2 sats of 78% on room air. She was started on BiPAP and nebulizer treatments. She was also given IV steroids. Clinically she appears to be doing better although she is wheezing diffusely. She is on BiPAP support and will go ahead and admit her to the ICU for the next 24-48 hrs. As she improves hopefully we can get her transfer to the general medical floor. Hospital Course: She was treated with nebs and steroid with improvement. She feels much better today. She is stable to be discharged on PO prednisone, refill her Nebs. F/U Dr Osorio. Vital Signs/Physical Exam: Temp Pulse Resp BP Pulse Ox 97.7 F 81 18 128/69 96 07/29/18 08:00 07/29/18 08:00 07/29/18 08:00 07/29/18 08:00 07/29/18 08:00 General: Alert, In no apparent distress HEENT: Atraumatic, PERRLA, EOMI Neck: Supple, JVD not distended Respiratory: Clear to auscultation bilaterally, Normal air movement Cardiovascular: Regular rate/rhythm, Normal S1 S2 Gastrointestinal: Normal bowel sounds, No tenderness Musculoskeletal: No tenderness Integumentary: No rashes Neurological: Normal speech, Normal tone, Normal affect Lymphatics: No axilla or inguinal lymphadenopathy Laboratory Data at Discharge: WBC 13.7 K/uL (4.3-10.9) H 07/28/18 00:15 Hgb 15.5 g/dL (12.0-15.0) H 07/28/18 00:15 Hct 45.4 % (36.0-45.0) H 07/28/18 00:15 Plt Count 310 K/uL (152-406) 07/28/18 00:15 PT 11.2 SECONDS (9.5-12.5) 07/28/18 00:15 INR 0.95 07/28/18 00:15 Sodium 142 mmol/L (136-145) 07/29/18 05:21 Potassium 4.0 mmol/L (3.5-5.1) 07/29/18 05:21 BUN 10 mg/dL (7-18) 07/29/18 05:21 Creatinine 0.60 mg/dL (0.55-1.3) 07/29/18 05:21 Glucose 115 mg/dL (74-106) H 07/29/18 05:21 Magnesium 2.3 mg/dL (1.8-2.4) 07/28/18 00:15 Total Bilirubin 0.5 mg/dL (0.2-1.0) 07/28/18 00:15 AST 36 U/L (15-37) 07/28/18 00:15 ALT 73 U/L (12-78) 07/28/18 00:15 Alkaline Phosphatase 74 U/L (45-117) 07/28/18 00:15 Home Medications: D-Methorp Beltre/PE/Br-Phenir [Bromatan-Dm Suspension] 10 ml PO TIDP PRN 12/17/17 Montelukast [Singulair*] 10 mg PO DAILY 07/28/18 Albuterol Neb [Proventil 0.083% Neb Soln] 2.5 mg NEB [id number] #60 amp 07/29/18 Albuterol Sulfate [Proair Hfa] 2 puff IH QIDP PRN #1 hfa.aer.ad 07/29/18 Mometasone/Formoterol [Dulera 200 Mcg/5 Mcg Inhaler] 2 puff IH BID #1 inhaler predniSONE [Prednisone*] 40 mg PO [id number] #20 tab 07/29/18 New Medications: Albuterol Neb [Proventil 0.083% Neb Soln] 2.5 mg NEB [id number] #60 amp Albuterol Sulfate [Proair Hfa] 2 puff IH QIDP PRN #1 hfa.aer.ad PRN Reason: Wheezing Mometasone/Formoterol [Dulera 200 Mcg/5 Mcg Inhaler] 2 puff IH BID #1 inhaler predniSONE [Prednisone*] 40 mg PO [id number] #20 tab Patient Discharge Instructions: Patient to go home on prednisone 10 mg twice a day number 30. Please give her hospital Dulera to take 2 puffs twice a day she will need refills for her albuterol follow up with me in 2 weeks Diet: Regular Activity: Ad lelo Followup: Cristian Tanner MD [ACTIVE - CAN ADMIT] - Time spent managing pt's care (in minutes): 35
[2018-07-29] MEDS ORDERED: INFLUENZA VACCINE (for 3y+) 0.5 ML DOSE IMVAC ONE (14:00)
[2018-07-29] MEDS ORDERED: PNEUMOCOCCAL VACCINE 0.5 ML IMVAC ONE (14:00)
[2018-07-29 14:20] VITALS: O2SAT 98
[2018-07-29 14:26] VITALS: BP 129/71; TEMP 97.8
== END 2018-07-29 14:45 | disposition home or self-care (01) | DRG 204 ==
LOC: ER 00:08 → ERHOLD 00:49 → 3RD-ICU 02:02 → 2ND 11:05
PROVIDERS: ADMIT Hospitalist; ATTEND Hospitalist
DX: R06.03 Acute respiratory distress (principal); J45.41 Moderate persistent asthma with (acute) exacerbation; R09.02 Hypoxemia; Z23 Encounter for immunization
CPT/HCPCS: 36415; 71045; 80048; 80076; 81003; 82805; 83735; 83880; 84484; 85025; 85610; 87040; 90670; 93005; 94640; 94660; 96365; 96367; 96375; 99285; G0008; G0009; J0456; J0696; J1650; J2405; J3475; J7030; J7512; J7606; Q2035

== ENCOUNTER 2018-08-23 06:33 | Emergency (ER) | payer SELFPAY ==
[2018-08-23] MEDS ORDERED: Magnesium Sulfate 2gm IVPB 2 G/50 ML BAG IV ONE (06:55)
[2018-08-23] MEDS ORDERED: ALBUTEROL 2.5 MG/3 ML NEB SOL ONE ×2 (06:55→07:58)
[2018-08-23] MEDS ORDERED: DEXAMETHASONE 10 MG/ML VIAL ONE (06:55)
--- NOTE | 2018-08-23 08:55 | ER ---
Nurse's Notes [facility] Name: Jessica Brannon Age: 37 yrs Sex: Female : 1980 Arrival Date: 08/23/2018 Time: 06:34 Bed 6 Private MD: Diagnosis: Unspecified asthma with (acute) exacerbation Presentation: 08/23 06:35 Presenting complaint: EMS states: Patient has been short of breath x 2 days, using lp1 nebulizer at home with no relief; Hx of asthma; Per EMS, 92% on RA, improvement after neb treatment, O2 at 99% RA. Transition of care: patient was not received from another setting of care. Onset of symptoms was August 23, 2018. Risk Assessment: Do you want to hurt yourself or someone else? Patient reports no desire to harm self or others. Initial Sepsis Screen: Does the patient meet any 2 criteria? No. Patient's initial sepsis screen is negative. Does the patient have a suspected source of infection? No. Patient's initial sepsis screen is negative. Care prior to arrival: Medication(s) given: Albuterol Neb x 1, Atrovent Neb x 1. 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 - Social history:: Smoking status: Patient/guardian denies using tobacco. - Ebola Screening: : No symptoms or risks identified at this time. Screenin:38 Abuse screen: Denies threats or abuse. Denies injuries from another. Nutritional lp1 screening: No deficits noted. Tuberculosis screening: No symptoms or risk factors identified. Fall Risk None identified. Assessment: 06:47 General: Appears in no apparent distress. ongoing nebulization from the EMS.. Behavior rr5 is calm, cooperative. Pain: Complains of pain in chest Pain Quality of pain is described as aching, Pain began 1 hour ago. Is continuous, Alleviated by rest, repositioning, Noted to be. Neuro: No deficits noted. Level of Consciousness is awake, alert, obeys commands. Cardiovascular: No deficits noted. Respiratory: Reports shortness of breath cough that is productive, Airway is patent Respiratory effort is even, Sputum is thick, audible wheezing. GI: No signs and/or symptoms were reported involving the gastrointestinal system. : No signs and/or symptoms were reported regarding the genitourinary system. EENT: No signs and/or symptoms were reported regarding the EENT system. Derm: No signs and/or symptoms reported regarding the dermatologic system. Musculoskeletal: No signs and/or symptoms reported regarding the musculoskeletal system. Vital Signs: 06:37 BP 122 / 85; Pulse 97; Resp 18; Temp 98.9(A); Pulse Ox 100% on Nebulizer Mask; Weight lp1 99.79 kg; Height 5 ft. 5 in. (165.10 cm); Pain 0/10; 07:56 BP 117 / 75; Pulse 96; Resp 19; Pulse Ox 100% on Nebulizer Mask; sg 06:37 Body Mass Index 36.61 (99.79 kg, 165.10 cm) lp1 ED Course: 06:34 Patient arrived in ED. lp1 06:35 [facility]C [facility] kb 06:35 Cisco Coe MD is Attending Physician. kb 06:36 Triage completed. lp1 06:38 Arm band placed on left wrist. lp1 06:38 Patient has correct armband on for positive identification. Pulse ox on. NIBP on. lp1 06:46 Inserted saline lock: 22 gauge in right hand, using aseptic technique. lp1 07:53 Gilmar Ambriz RN is Primary Nurse. sg Administered Medications: 06:55 Drug: Albuterol 2.5 mg Route: Inhalation; rr5 06:57 Drug: Magnesium Sulfate 2 grams Route: IVPB; Infused Over: 1 hrs; Site: right hand; lp1 07:54 Follow up: Response: No adverse reaction; IV Status: Completed infusion sg 06:57 Drug: Decadron - Dexamethasone 10 mg Route: IVP; Site: right hand; lp1 07:54 Follow up: Response: No adverse reaction sg 07:01 Drug: Albuterol 2.5 mg Route: Inhalation; lp1 07:01 Drug: Albuterol 2.5 mg Route: Inhalation; lp1 07:54 Drug: Albuterol 2.5 mg Route: Inhalation; sg 07:55 Drug: Albuterol 2.5 mg Route: Inhalation; sg 07:55 Drug: Albuterol 2.5 mg Route: Inhalation; sg Outcome: 08:54 Discharge ordered by . kb 09:02 Patient left the ED. eb Signatures: Dorene Hu, REID COTA-Gilmar Caraballo RN RN sg Leora Baker RN RN lp1 Kylah Motta Raymond, RN RN rr5 Corrections: (The following items were deleted from the chart) 07:00 06:47 Respiratory: Reports shortness of breath cough that is productive, Airway is rr5 patent Respiratory effort is even, Sputum is thick, rr5 07:00 06:47 EENT: No signs and/or symptoms were reported regarding the EENT system. rr5 rr5
--- NOTE | 2018-08-23 08:55 | EDPHYS ---
Physician Documentation [facility] Name: Jessica Brannon Age: 37 yrs Sex: Female : 1980 Arrival Date: 08/23/2018 Time: 06:34 Bed 6 Private MD: ED Physician Cisco Coe HPI: 08/23 07:02 This 37 yrs old Female presents to ER via EMS with complaints of Asthma kb Exacerbation. 07:02 The patient presents to the emergency department with wheezing, Current therapy: kb albuterol nebs, that began without any particular precipitating event, the patient was reported to have audible wheezing, non-productive cough, trouble breathing, Pre-hospital care: med neb, albuterol. Onset: The symptoms/episode began/occurred yesterday. Modifying factors: The symptoms are alleviated by nothing, the symptoms are aggravated by nothing. Associated signs and symptoms: The patient has no apparent associated signs or symptoms. Severity of symptoms: At their worst the symptoms were moderate in the emergency department the symptoms are unchanged. The patient has experienced similar episodes in the past, chronically. The patient has not recently seen a physician. Pt reports she had an asthma attack yesterday and at 0200, but both got better after a neb treatment. This morning woke up having another asthma attack, tried a neb treatment, but it didn't help this time so she called 911. 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 - Social history:: Smoking status: Patient/guardian denies using tobacco. - Ebola Screening: : No symptoms or risks identified at this time. ROS: 07:02 Constitutional: Negative for fever, chills, and weight loss, ENT: Negative for injury, kb pain, and discharge, Neck: Negative for injury, pain, and swelling, Cardiovascular: Negative for chest pain, palpitations, and edema, Abdomen/GI: Negative for abdominal pain, nausea, vomiting, diarrhea, and constipation, Back: Negative for injury and pain, MS/Extremity: Negative for injury and deformity, Skin: Negative for injury, rash, and discoloration, Neuro: Negative for headache, weakness, numbness, tingling, and seizure. 07:02 Respiratory: Positive for cough, wheezing, Negative for dyspnea on exertion, hemoptysis, orthopnea, pleurisy, shortness of breath, sputum production. Exam: 07:02 Constitutional: This is a well developed, well nourished patient who is awake, alert, kb and in no acute distress. Head/Face: Normocephalic, atraumatic. ENT: Nares patent. No nasal discharge, no septal abnormalities noted. Tympanic membranes are normal and external auditory canals are clear. Oropharynx with no redness, swelling, or masses, exudates, or evidence of obstruction, uvula midline. Mucous membranes moist. Neck: Trachea midline, no thyromegaly or masses palpated, and no cervical lymphadenopathy. Supple, full range of motion without nuchal rigidity, or vertebral point tenderness. No Meningismus. Chest/axilla: Normal chest wall appearance and motion. Nontender with no deformity. No lesions are appreciated. Cardiovascular: Regular rate and rhythm with a normal S1 and S2. No gallops, murmurs, or rubs. Normal PMI, no JVD. No pulse deficits. Abdomen/GI: Soft, non-tender, with normal bowel sounds. No distension or tympany. No guarding or rebound. No evidence of tenderness throughout. Back: No spinal tenderness. No costovertebral tenderness. Full range of motion. Skin: Warm, dry with normal turgor. Normal color with no rashes, no lesions, and no evidence of cellulitis. MS/ Extremity: Pulses equal, no cyanosis. Neurovascular intact. Full, normal range of motion. Neuro: Awake and alert, GCS 15, oriented to person, place, time, and situation. Cranial nerves II-XII grossly intact. Motor strength 5/5 in all extremities. Sensory grossly intact. Cerebellar exam normal. Normal gait. 07:02 Respiratory: mild respiratory distress is noted, Respirations: labored breathing, that is mild, Breath sounds: wheezing: expiratory that is moderate, is heard diffusely. Vital Signs: 06:37 BP 122 / 85; Pulse 97; Resp 18; Temp 98.9(A); Pulse Ox 100% on Nebulizer Mask; Weight lp1 99.79 kg; Height 5 ft. 5 in. (165.10 cm); Pain 0/10; 07:56 BP 117 / 75; Pulse 96; Resp 19; Pulse Ox 100% on Nebulizer Mask; sg 06:37 Body Mass Index 36.61 (99.79 kg, 165.10 cm) lp1 MDM: 06:36 Patient medically screened. kb 07:05 Data reviewed: vital signs, nurses notes. Data interpreted: Pulse oximetry: on room air kb is 92 %. Interpretation: normal. 07:48 ED course: wheezing decreased, pt reports feeling better and breathing easier. O2 sat kb 97% on room air. . 08:52 Counseling: I had a detailed discussion with the patient and/or guardian regarding: the kb historical points, exam findings, and any diagnostic results supporting the discharge/admit diagnosis, the need for outpatient follow up, a family practitioner, to return to the emergency department if symptoms worsen or persist or if there are any questions or concerns that arise at home. 08/23 06:43 Order name: IV Start; Complete Time: 06:46 kb Administered Medications: 06:55 Drug: Albuterol 2.5 mg Route: Inhalation; rr5 06:57 Drug: Magnesium Sulfate 2 grams Route: IVPB; Infused Over: 1 hrs; Site: right hand; lp1 07:54 Follow up: Response: No adverse reaction; IV Status: Completed infusion sg 06:57 Drug: Decadron - Dexamethasone 10 mg Route: IVP; Site: right hand; lp1 07:54 Follow up: Response: No adverse reaction sg 07:01 Drug: Albuterol 2.5 mg Route: Inhalation; lp1 07:01 Drug: Albuterol 2.5 mg Route: Inhalation; lp1 07:54 Drug: Albuterol 2.5 mg Route: Inhalation; sg 07:55 Drug: Albuterol 2.5 mg Route: Inhalation; sg 07:55 Drug: Albuterol 2.5 mg Route: Inhalation; sg Disposition: 08/23/18 08:54 Discharged to Home. Impression: Unspecified asthma with (acute) exacerbation. - Condition is Stable. - Discharge Instructions: Asthma, Adult, [id number]. - Prescriptions for Albuterol Sulfate 2.5 mg /3 mL (0.083 %) Inhalation Solution for Nebulization - inhale 1 unit by NEBULIZATION route every 8 hours As needed; 1 box. Zithromax Z- [place] 250 mg Oral Tablet - take 1 tablet by ORAL route as directed for 5 days Day 1 - take two (2) tablets one time. Day 2, 3, 4 , 5 take one (1) tablet once daily.; 6 tablet. - Medication Reconciliation Form, Thank You Letter, Antibiotic Education, Prescription Opioid Use, Work release form form. - Follow up: Emergency Department; When: As needed; Reason: Trouble breathing, Worsening of condition. Follow up: Private Physician; When: 2 - 3 days; Reason: Recheck today's complaints, Continuance of care, Re-evaluation by your physician. Addendum: 08/28/2018 09:48 Co-signature as Attending Physician, Cisco Coe MD available for consultation at p s1 all times . Signatures: Dorene Hu, GARAGEMAN-C GARAGEMAN-Ckb Gilmar Ambriz, RN RN sg Leora Baker RN RN lp1 Cisco Coe MD MD [facility] Kylah Motta Raymond, RN RN rr5 Corrections: (The following items were deleted from the chart) 08/23 07:49 07:05 Data interpreted: Pulse oximetry: on room air is 100 %. Interpretation: normal. kbkb 09:02 08:54 08/23/2018 08:54 Discharged to Home. Impression: Unspecified asthma with (acute) eb exacerbation. Condition is Stable. Forms are Medication Reconciliation Form, Thank You Letter, Antibiotic Education, Prescription Opioid Use. Follow up: Emergency Department; When: As needed; Reason: Trouble breathing, Worsening of condition. Follow up: Private Physician; When: 2 - 3 days; Reason: Recheck today's complaints, Continuance of care, Re-evaluation by your physician. kb
[2018-08-23 09:11] VITALS: TEMP 98.9; O2SAT 100
[2018-08-23 09:12] VITALS: BP 117/75
== END 2018-08-23 09:02 | disposition home or self-care (01) ==
LOC: ER 06:33
DX: J45.901 Unspecified asthma with (acute) exacerbation (principal); Z88.8 Allergy status to other drugs, medicaments and biological substances
CPT/HCPCS: 96365; 96375; 99284; J1100; J3475

== ENCOUNTER 2019-08-12 16:20 | Emergency (ER) | payer SELFPAY ==
[2019-08-12] MEDS ORDERED: IPRATROPIUM BROM 0.5MG/2.5ML ONE (16:38)
[2019-08-12] MEDS ORDERED: dexAMETHasone 10 MG/ML VIAL ONE (16:38)
[2019-08-12] MEDS ORDERED: ALBUTEROL 2.5 MG/3 ML NEB SOL ONE (16:38)
[2019-08-12] MEDS ORDERED: Magnesium Sulfate 2gm IVPB 2 G/50 ML BAG IV ONE (17:41)
[2019-08-12] MEDS ORDERED: LEVALBUTEROL 1.25 MG/3 ML NEB ONE (18:06)
--- NOTE | 2019-08-12 19:08 | EDPHYS ---
Physician Documentation [facility] Name: Jessica Brannon Age: 38 yrs Sex: Female : 1980 Arrival Date: 08/12/2019 Time: 16:21 Bed 23 Private MD: ED Physician Raghu Rapp HPI: 08/12 16:30 This 38 yrs old Female presents to ER via Ambulatory with complaints of Asthma jmm Exacerbation. 16:30 The patient presents to the emergency department with wheezing, Current therapy: jmm albuterol inhaler. Onset: The symptoms/episode began/occurred gradually, at 15:30. Modifying factors: The symptoms are alleviated by nothing, the symptoms are aggravated by nothing. Associated signs and symptoms: Pertinent negatives: fever. This is a 38 year old female with a history of asthma that presents to the ED with complaints of wheezing and shortness of breath beginning earlier today. patient states having similar episodes in the past. denies fever. denies history of intubation but has been admitted in the past. . 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 - Social history:: Smoking status: Patient/guardian denies using tobacco. - Ebola Screening: : No symptoms or risks identified at this time. ROS: 16:30 Constitutional: Negative for fever, chills, and weight loss, Cardiovascular: Negative jmm for chest pain, palpitations, and edema. 16:30 Abdomen/GI: Negative for abdominal pain, nausea, vomiting, diarrhea, and constipation. 16:30 Respiratory: Positive for cough, wheezing. 16:30 All other systems are negative. Exam: 16:30 Constitutional: This is a well developed, well nourished patient who is awake, alert, jmm and in no acute distress. Head/Face: atraumatic. Eyes: EOMI, no conjunctival erythema appreciated ENT: Moist Mucus Membranes Neck: Trachea midline, Supple Chest/axilla: Normal chest wall appearance and motion. 16:30 Abdomen/GI: Non distended, soft Back: Normal ROM Skin: General appearance color normal MS/ Extremity: Moves all extremities, no obvious deformities appreciated, no edema noted to the lower extremities Neuro: Awake and alert, normal gait Psych: Behavior is normal, Mood is normal, Patient is cooperative and pleasant 16:30 Cardiovascular: Rate: tachycardic, Rhythm: regular. 16:30 Respiratory: the patient does not display signs of respiratory distress, Respirations: labored breathing, that is mild, Breath sounds: wheezing: that is moderate, is heard diffusely. Vital Signs: 16:26 BP 118 / 72; Pulse 111; Resp 24; Temp 97.8; Pulse Ox 99% ; Weight 90.72 kg; Height 5 ss ft. 5 in. (165.10 cm); 17:30 BP 131 / 89; Pulse 104; Resp 18; Pulse Ox 99% on R/A; aj1 18:30 BP 138 / 86; Pulse 95; Resp 22; Pulse Ox 100% on R/A; aj1 16:26 Body Mass Index 33.28 (90.72 kg, 165.10 cm) ss MDM: 16:32 Patient medically screened. [facility] 19:06 Differential diagnosis: acute asthma, exercise-induced asthma, reactive airway, URI. ma2 Data reviewed: vital signs, nurses notes. Counseling: I had a detailed discussion with the patient and/or guardian regarding: the historical points, exam findings, and any diagnostic results supporting the discharge/admit diagnosis, the presence of at least one elevated blood pressure reading (>120/80) during this emergency department visit, the need for outpatient follow up. Response to treatment: the patient's symptoms have resolved after treatment. 08/12 16:37 Order name: Saline Lock; Complete Time: 17:14 [facility] Administered Medications: 16:42 Drug: Decadron 10 mg Route: IM; Site: right deltoid; aj1 17:30 Follow up: Response: No adverse reaction aj1 16:42 Drug: Albuterol - atroVENT (3:1) (2.5 mg - 0.5 mg) 3 ml Route: Nebulizer; aj1 17:30 Follow up: Response: No adverse reaction 1 17:54 Drug: Magnesium Sulfate 1 grams Route: IVPB; Infused Over: 1 hrs; Site: right forearm; [facility] 19:21 Follow up: IV Status: Completed infusion; IV Intake: 100ml aj 17:55 Drug: Magnesium Sulfate 1 grams {Note: Given as Mag Sulfate 2 GM IV bag.} Route: IVPB; aj1 Infused Over: 1 hrs; Site: right forearm; 19:22 Follow up: IV Status: Completed infusion; IV Intake: 100ml aj1 18:09 Drug: Xopenex 1.25 mg Route: Inhalation; ca1 19:22 Follow up: Response: No adverse reaction aj1 Disposition: 19:06 Co-signature as Attending Physician, Raghu Rapp MD. ma2 Disposition: 08/12/19 19:07 Discharged to Home. Impression: Asthma. - Condition is Stable. - Discharge Instructions: Asthma, Pediatric. - Prescriptions for Medrol ([place]) 4 mg Oral Tablets, Dose Pack - take 1 tablet by ORAL route as directed - follow package instructions; 1 packet. Albuterol Sulfate 90 mcg/actuation - inhale 1-2 puff by INHALATION route every 4-6 hours; 1 Inhaler. - Medication Reconciliation Form, Thank You Letter, Antibiotic Education, Prescription Opioid Use form. - Follow up: Private Physician; When: Tomorrow; Reason: Continuance of care. Signatures: Pearl Dumont RN RN aj1 Scotty Ruiz PA PA jmm Smirch, Shelby, RN RN ss Raghu Rapp MD MD ma2 Janna Velez RN RN ca1 Corrections: (The following items were deleted from the chart) 19:23 19:07 08/12/2019 19:07 Discharged to Home. Impression: Asthma. Condition is Stable. aj1 Forms are Medication Reconciliation Form, Thank You Letter, Antibiotic Education, Prescription Opioid Use. Follow up: Private Physician; When: Tomorrow; Reason: Continuance of care. ma2
--- NOTE | 2019-08-12 19:08 | ER ---
Nurse's Notes [facility] Name: Jessica Brannon Age: 38 yrs Sex: Female : 1980 Arrival Date: 08/12/2019 Time: 16:21 Bed 23 Private MD: Diagnosis: Asthma Presentation: 08/12 16:26 Presenting complaint: Patient states: SOB AND WHEEZING SINCE 1530. Transition of care: ss patient was not received from another setting of care. Onset of symptoms was August 12, 2019 at 15:30. Risk Assessment: Do you want to hurt yourself or someone else? Patient reports no desire to harm self or others. Initial Sepsis Screen: Does the patient meet any 2 criteria? HR > 90 bpm. No. Patient's initial sepsis screen is negative. Does the patient have a suspected source of infection? No. Patient's initial sepsis screen is negative. Care prior to arrival: None. 16:26 Method Of Arrival: Ambulatory ss 16:26 Acuity: JACINTA 3 ss CRM ARCHITECT: 16:26 LMP N/A - Irregular menses ss Historical: - Allergies: 16:26 Prednisone; ss - Home Meds: 16:26 Albuterol Inhl [Active]; ss - PMHx: 16:26 Asthma; ss - Immunization history:: Adult Immunizations up to date. - Social history:: Smoking status: Patient/guardian denies using tobacco. - Ebola Screening: : No symptoms or risks identified at this time. Screenin:30 Abuse screen: Denies threats or abuse. Denies injuries from another. Nutritional aj1 screening: No deficits noted. Tuberculosis screening: No symptoms or risk factors identified. 19:22 Fall Risk None identified. aj1 Assessment: 16:30 General: Appears in no apparent distress. uncomfortable, Behavior is calm, cooperative, aj1 appropriate for age. Pain: Denies pain. Neuro: Level of Consciousness is awake, alert, obeys commands, Oriented to person, place, time, situation. Cardiovascular: Heart tones S1 S2 present Patient's skin is warm and dry. Rhythm is sinus rhythm. Respiratory: Reports shortness of breath at rest Airway is patent Respiratory effort is even, unlabored, Respiratory pattern is regular, symmetrical, Breath sounds with wheezes bilaterally. the patient has moderate shortness of breath. GI: No signs and/or symptoms were reported involving the gastrointestinal system. : No signs and/or symptoms were reported regarding the genitourinary system. EENT: No signs and/or symptoms were reported regarding the EENT system. Derm: No signs and/or symptoms reported regarding the dermatologic system. Skin is pink, warm \T\ dry. normal. Musculoskeletal: No signs and/or symptoms reported regarding the musculoskeletal system. Circulation, motion, and sensation intact. 17:30 Reassessment: Patient appears in no apparent distress at this time. Patient and/or aj1 family updated on plan of care and expected duration. Pain level reassessed. Patient is alert, oriented x 3, equal unlabored respirations, skin warm/dry/pink. Patient states that her shortness of breath has improved but she is not feeling completely better yet. 18:30 Reassessment: Patient appears in no apparent distress at this time. No changes from [facility] previously documented assessment. Patient and/or family updated on plan of care and expected duration. Pain level reassessed. Patient is alert, oriented x 3, equal unlabored respirations, skin warm/dry/pink. 19:22 Reassessment: Patient appears in no apparent distress at this time. No changes from [facility] previously documented assessment. Patient and/or family updated on plan of care and expected duration. Pain level reassessed. Patient is alert, oriented x 3, equal unlabored respirations, skin warm/dry/pink. Vital Signs: 16:26 BP 118 / 72; Pulse 111; Resp 24; Temp 97.8; Pulse Ox 99% ; Weight 90.72 kg; Height 5 ss ft. 5 in. (165.10 cm); 17:30 BP 131 / 89; Pulse 104; Resp 18; Pulse Ox 99% on R/A; aj1 18:30 BP 138 / 86; Pulse 95; Resp 22; Pulse Ox 100% on R/A; aj1 16:26 Body Mass Index 33.28 (90.72 kg, 165.10 cm) ED Course: 16:21 Patient arrived in ED. as 16:26 Triage completed. 16:26 Arm band placed on. 16:29 Scotty Ruiz PA is PHCP. [facility] 16:29 Joshua Fuentes MD is Attending Physician. [facility] 16:30 Pearl Dumont RN is Primary Nurse. [facility] 16:30 Patient has correct armband on for positive identification. compliance monitor on. Pulse aj1 ox on. NIBP on. 16:30 No provider procedures requiring assistance completed. aj1 17:14 Missed attempt(s): 22 gauge in left forearm. lt1 17:14 Inserted saline lock: 22 gauge in right antecubital area, using aseptic technique. lt1 17:28 Attending Physician role handed off by Joshua Fuentes MD ma2 17:28 Raghu Rapp MD is Attending Physician. ma2 19:22 IV discontinued, intact, bleeding controlled, No redness/swelling at site. Pressure aj1 dressing applied. Administered Medications: 16:42 Drug: Decadron 10 mg Route: IM; Site: right deltoid; aj1 17:30 Follow up: Response: No adverse reaction aj1 16:42 Drug: Albuterol - atroVENT (3:1) (2.5 mg - 0.5 mg) 3 ml Route: Nebulizer; aj1 17:30 Follow up: Response: No adverse reaction aj1 17:54 Drug: Magnesium Sulfate 1 grams Route: IVPB; Infused Over: 1 hrs; Site: right forearm; aj1 19:21 Follow up: IV Status: Completed infusion; IV Intake: 100ml aj1 17:55 Drug: Magnesium Sulfate 1 grams {Note: Given as Mag Sulfate 2 GM IV bag.} Route: IVPB; aj1 Infused Over: 1 hrs; Site: right forearm; 19:22 Follow up: IV Status: Completed infusion; IV Intake: 100ml aj1 18:09 Drug: Xopenex 1.25 mg Route: Inhalation; ca1 19:22 Follow up: Response: No adverse reaction aj1 Intake: 19:21 IV: 100ml; Total: 100ml. aj1 19:22 IV: 100ml; Total: 200ml. aj1 Outcome: 19:07 Discharge ordered by . ma2 19:23 Discharged to home ambulatory. aj1 19:23 Condition: good 19:23 Discharge instructions given to patient, Instructed on discharge instructions, follow up and referral plans. medication usage, Demonstrated understanding of instructions, follow-up care, medications, Prescriptions given X 2. 19:23 Patient left the ED. aj1 Signatures: Pearl Dumont RN RN aj Scotty Ruiz PA PA jmm Martinez, Amelia as Smirch, Shelby, RN RN Raghu Rapp MD MD ma2 Janna Velez, RN RN ca1 Saida, Sisi lt1
[2019-08-12 19:40] VITALS: TEMP 97.8
[2019-08-12 19:43] VITALS: BP 138/86; O2SAT 100
== END 2019-08-12 19:23 | disposition home or self-care (01) ==
LOC: ER 16:20
DX: J45.909 Unspecified asthma, uncomplicated (principal)
CPT/HCPCS: 94640; 96365; 96372; 99285; J1100; J3475

== ENCOUNTER 2022-01-20 19:19 | Emergency (ER) | payer SELFPAY ==
--- OUTSIDE RECORDS SUMMARY | 2022-01-20 19:25 | XMS REPORT | Continuity of Care Document ---
:1980 Author Organization [facility] t Address [facility] [address] [place] [address] Care Team Providers Name Role Phone Asked, No Pcp Primary Care Physician Unavailable PENNY Attending Clinician Unavailable CLEO Admitting Clinician Unavailable Problems Condition Condition Condition Status Onset Resolution Last Treating Co mments Source Name Details Category Date Date Treatment Clinician Date COVID19 COVID19 Disease Active Metho di 07-16 st 00:00: Hospita 00 l Acute Acute Disease Active Methodi respirator respirator 07-08 y failure y failure 00:00: Hosp karon with with 00 l hypoxia hypoxia Suspected Suspected Disease Active Met hodi COVID- COVID-19 07-08 st virus virus 00:00: Hospita infection infection 00 l Allergies, Adverse Reactions, Alerts This patient has no known allergies or adverse reactions. Social History Social Habit Start Date Stop Date Quantity Comments Source Tobacco use and 2021-07-08 2021-07-08 Smokeless tobacco Me [facility]ist exposure 00:00:00 00:00:00 non-user Hospital Sex Assigned At [birth year] [facility] 00:[facility]00 00:[facility]:00 Hospital Smoking Status Start Date Stop Date Source Never smoked tobacco [facility] Medications Ordered Filled Start Stop Current Ordering Indication Dosage Frequency Signature Comments Components Source Medication Medication Date Date Medication? Clinician (SIG) Name Name dexamethaso 8mg QD Take 8 mg Methodi ne 07-[address] (DECADRON) 17:39: 00:00 daily. X Ho spita 4 MG tablet 40 :00 10 days, l started on 07/03/21 azithromyci 2020- No 500mg QD Take 500 Methodi n 07-16-[address] (ZITHROMAX) 17:39: 00:00 mouth Hosp karon 500 MG 40 :00 daily. X 5 l tablet days, started on 07/03/21 albuterol Yes 2.5mg Q6H Take 2.5 Met hodi (ACCUNEB) 07-[address] 2.5 mg /3 17:39: nebulizati Ho spita mL (0.083 36 on every 6 l %) (six) nebulizer hours as solution needed for wheezing or shortness of breath. dextrometho 2020- No 10mL Q4H Take 10 mL Methodi rphan-guaif 07-[address] enesin 00:00: 04:59 every 4 Hospita (ROBITUSSIN 00 :00 (four) l -DM) 10-100 hours as mg/5 mL needed for liquid cough for up to 30 days. fluticasone 2020- No QD Inhale 1 M ethodi furoate-daphne 07-16 inhalation s t anteroL 00:00: 04:59 s once Hospita (BREO 00 :00 daily for l ELLIPTA) 30 days. 100-25 mcg/dose blister with device powder for inhalation famotidine 2020- No 20mg Q.5D Take 1 Meth apple (PEPCID) 20 07-16 tablet (20 s t MG tablet 00:00: 04:59 mg total) Ho spita 00 :00 by mouth 2 l (two) times a day for 30 days. apixaban 2020- No 2.5mg Q.5D Take 1 Metho di (ELIQUIS) 07-16- tablet st 2.5 mg 00:00: 04:59 (2.5 mg Hospita tablet 00 :00 total) by l mouth 2 (two) times a day for 14 days. predniSONE 2020- No Take 2 Meth apple (DELTASONE) 07-16-[address] 20 mg 00:00: 04:59 (40 mg Hospita tablet 00 :00 total) by l mouth daily for 2 days, THEN 1.5 tablets (30 mg total) daily for 3 days, THEN 1 tablet (20 mg total) daily for 3 days, THEN 0.5 tablets (10 mg total) daily for 3 days. Vital Signs Vital Name Observation Time Observation Value Comments Source Systolic blood 2021-07-16 21:35:55 117 mm[Hg] [facility] pressure Diastolic blood 2021-07-16 21:35:55 74 mm[Hg] [facility] pressure Heart rate 2021-07-16 21:35:55 104 /min [facility] Body temperature 2021-07-16 21:35:55 35.83 [facility] Respiratory rate 2021-07-16 21:35:55 20 /min [facility] Oxygen saturation in 2021-07-16 21:35:55 97 /min [facility] Arterial blood by Pulse oximetry Body height 2021-07-08 02:22:00 165.1 cm [facility] Body weight 2021-07-08 02:22:00 111.131 kg [facility] BMI 2021-07-08 02:22:00 40.77 kg/m2 [facility] Procedures Procedure Date / Time Performing Clinician Source Performed DURABLE MEDICAL EQUIPMENT [facility]-07[facility]16 [facility] 2021-07-16 09:19:00 Lock, [facility] D-DIMER 2021-07-16 09:19:00 Spike, [facility] XR CHEST 1 VW PORTABLE 2021-07-15 17:21[facility]ACT[facility] 2021-07-15 10:39:00 Lock, [facility] D-DIMER 2021-07-15 10:39:00 Spike, [facility] BASIC METABOLIC PANEL 2021-07-14 10:53:00 Lock, [facility] HC COMPLETE BLD COUNT 2021-07-14 10:53:00 Spike, [facility] W/AUTO DIFF C-REACTIVE PROTEIN 2021-07-14 10:53:00 Lock, [facility] D-DIMER 2021-07-14 10:53:00 Lock [facility] ESTIMATED GFR 2021-07-14 10:53:00 Spike [facility] POC GLUCOSE 2021-07-14 02:20:00 Sae Gonzales spital C-REACTIVE PROTEIN 2021-07-13 10:48:00 Penny [facility] FERRITIN LEVEL 2021-07-13 10:48:00 Sae Gonzales Ho spital LDH 2021-07-13 10:48:00 Sae Gonzales Ho spital D-DIMER 2021-07-13 10:48:00 Sae Gonzales Ho spital BASIC METABOLIC PANEL 2021-07-13 10:48:00 Spike [facility] HC COMPLETE BLD COUNT 2021-07-13 10:48:00 Spike [facility] W/AUTO DIFF ESTIMATED GFR 2021-07-13 10:48:00 Spike [facility] C-REACTIVE PROTEIN 2021-07-12 09:43:00 Penny [facility] FERRITIN LEVEL 2021-07-12 09:43:00 Sae Gonzales Ho spital LDH 2021-07-12 09:43:00 Sae Gonzales spital D-DIMER 2021-07-12 09:43:00 Sae Gonzales Ho spital BASIC METABOLIC PANEL 2021-07-12 09:43:00 Spike [facility] HC COMPLETE BLD COUNT 2021-07-12 09:43:00 Spike [facility] W/AUTO DIFF ESTIMATED GFR 2021-07-12 09:43:00 Spike [facility] COMPREHENSIVE METABOLIC 2021-07-11 10:04:00 Sae Gonzales [facility] PANEL HC COMPLETE BLD COUNT 2021-07-11 10:04:00 [facility] W/AUTO DIFF C-REACTIVE PROTEIN 2021-07-11 10:04:00 [facility] FERRITIN LEVEL 2021-07-11 10:04:00 [facility] LDH 2021-07-11 10:04:00 PennySae zelaya [facility] spital D-DIMER 2021-07-11 10:04:00 Penny Sae Laguerre spital ESTIMATED GFR 2021-07-11 10:04:00 Penny [facility] spital D-DIMER 2021-07-10 09:50:00 Penny [place] [facility] HC COMPLETE BLD COUNT 2021-07-10 09:50:00 [facility] W/AUTO DIFF INTERLEUKIN 6 2021-07-10 08:35:00 Tommie Clark ospital CBC WITH PLATELET AND 2021-07-10 [facility]PREHENSIVE METABOLIC 2021-07-10 08:35:00 Tommie Clark [facility] PANEL TROPONIN 2021-07-10 08:35:00 Tommie Clark ospital D-DIMER 2021-07-10 08:35:00 Tommie Clark ospital C-REACTIVE PROTEIN 2021-07-10 08:35:00 [facility] 2021-07-10 08:35:00 Tommie Clark ospital FERRITIN LEVEL 2021-07-10 08:35:00 Tommie Clark ospital ESTIMATED GFR 2021-07-10 08:35:00 Tommie Clark ospital INTERLEUKIN 6 2021-07-09 08:27:00 Tommie Clark ospital HC COMPLETE BLD COUNT 2021-07-09 08:27:00 Cleo [facility] W/AUTO DIFF COMPREHENSIVE METABOLIC 2021-07-09 08:27:00 Tommie Clark [facility] PANEL TROPONIN 2021-07-09 08:27:00 Tommie Clark ospital D-DIMER 2021-07-09 08:27:00 Tommie Clark [facility] C-REACTIVE PROTEIN 2021-07-09 08:27:00 Cleo [facility] LDH 2021-07-09 08:27:00 Tommie Clark ospital FERRITIN LEVEL 2021-07-09 08:27:00 Tommie Clark ospital ESTIMATED GFR 2021-07-09 08:27:00 Tommie Clark ospital ECG 12-LEAD 2021-07-09 00:13:21 Tommie Clark ospital INTERLEUKIN 6 2021-07-08 09:24:00 Tommie Clark HC COMPLETE BLD COUNT 2021-07-08 09:24:00 Cleo [facility] W/AUTO DIFF COMPREHENSIVE METABOLIC 2021-07-08 09:24:00 Cleo [facility] PANEL TROPONIN 2021-07-08 09:24:00 Tommie Clark [facility]ital D-DIMER 2021-07-08 09:24:00 Tommie Clark ospital C-REACTIVE PROTEIN 2021-07-08 09:24:00 Cleo [facility] LDH 2021-07-08 09:24:00 Tommie Clark ospital FERRITIN LEVEL 2021-07-08 09:24:00 Tommie Clark neymar TYPE AND SCREEN 2021-07-08 09:24:00 Tommie Clark [facility] HEMOGLOBIN A1C 2021-07-08 09:24:00 Tommie Clark ospital PROCALCITONIN 2021-07-08 09:24:00 [facility] ESTIMATED GFR 2021-07-08 09:24:00 Tommie Clark ospital LACTIC ACID LEVEL 2021-07-08 09:24:00 [facility] CREATINE KINASE, TOTAL 2021-07-08 09:24:00 [facility] ([facility]) CT ANGIOGRAM PE CHEST 2021-07-08 07:37:03 [facility] URINE CULTURE 2021-07-08 07:26[facility]YS[facility] S[facility]EN AND 2021-07-08 07:06:00 [facility] MICROSCOPY, WITH REFLEX TO CULTURE LEGIONELLA URINARY 2021-07-08 07:05:00 [facility] ANTIGEN STREPTOCOCCUS PNEUMONIAE 2021-07-08 07:05:00 [facility] URINARY ANTIGEN RESPIRATORY PATHOGEN 2021-07-08 04:46:00 Tevin, [facility] PANEL WITH COVID-19 RT-PCR BLOOD CULTURE, AEROBIC & 2021-07-08 04:38:00 Tevin, [facility] ANAEROBIC COMPREHENSIVE METABOLIC 2021-07-08 04:27:00 Tevin, [facility] PANEL PHOSPHORUS LEVEL 2021-07-08 04:27:00 Tevin, [facility] MAGNESIUM LEVEL 2021-07-08 04:27:00 Tevin, [facility] LACTIC ACID LEVEL, SEPSIS 2021-07-08 04:27:00 Tevin, [facility] - NOW AND REPEAT 2X EVERY 3 HOURS HC COMPLETE BLD COUNT 2021-07-08 04:27:00 Tevin, [facility] W/AUTO DIFF PROTHROMBIN TIME WITH INR 2021-07-08 04:27:00 Tevin, [facility] PARTIAL THROMBOPLASTIN 2021-07-08 04:27:00 Tevin [facility] TIME (PTT) HCG QUALITATIVE, SERUM 2021-07-08 04:27:00 TevinMehdi patel [facility] SCREEN TROPONIN 2021-07-08 04:27:00 Tevin, [facility] B NATRIURETIC PEPTIDE 2021-07-08 04:27:00 Tevin [facility] ESTIMATED GFR 2021-07-08 04:27:00 Tevin [facility] XR CHEST 1 VW PORTABLE 2021-07-08 04:23:00 Tevin, Mehdiamy Perales [facility] MI CRITICAL CARE, E/M 2021-07-08 03:57:09 Mehdi Abarca [facility] 30-74 MINUTES ECG ED PRELIMINARY 2021-07-08 03:57:09 TevinJoseMehdi [facility] INTERPRETATION ECG 12-LEAD 2021-07-08 03:42:09 [facility] Planned Activity Planned Date Details Comments Source Future Scheduled 2021-11-30 COVID-19 VACCINE [facility] Test 17:13:06 (1) [code = COVID-19 VACCINE (1)] Future Scheduled 2021-11-30 Hepatitis C [facility] ospital Test 17:13:06 screening (procedure) [code = 303374445] Future Scheduled 2021-11-30 Screening for [facility] Test 17:13:06 malignant neoplasm of cervix (procedure) [code = 102498100] Future Scheduled 2021-11-30 INFLUENZA VACCINE [facility] Test 17:13:06 [code = INFLUENZA VACCINE] Encounters Start End Encounter Admission Attending Care Care Encounter Source Date/Time Date/Time Type Type Clinicians Facility Department ID 2021-07-07 2021-07-[id number] [place] 00:00:00 00:00:00 Encounter SAE [id number] [id number] Results Test Description Test Time Test Comments Results Result Comments Source Donaldo John + 1 more item 2021-07-17 00:13:15 Test Item Value Reference Range Interpretation Comme [facility] SUPPLIER NAME (test code = 6415) [facility] SUPPLIER PHONE (test code = 6416) [phone] ORDER STATUS (test code = 6417) Delivery Successful DELIVERY NOTE (test code = 6419) REQUESTED DELIVEY DATE (test code = 6420) 07/16/2021 ITEM DESCRIPTION (test code = 6423) Donaldo Lopez, Adult Qty: 1 EXPECTED DELIVERY DATE (test code = 6421) 07/16/2021 ACTUAL DELIVERY DATE (test code = 6422) 07/16/2021 [facility] [id number] 02:21:12 Test Item Value Reference Range Interpretation Comments POC glucose (test code = 291 mg/dL 65-99 H Ope rator Name: [id number]) Amber Coates ice ID: [id number] able : [facility] 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 Interpretation (test Abnormal code = 46851-0) [facility] 12 [id number] 23:34:12 Test Item Value Reference Range Interpretation Comments Ventricular rate (test code = 253) Atrial rate (test code = 255) QRSD interval (test code = 260) QT interval (test code = 264) QTC interval (test code = 265) QRS axis 1 (test code = 268) T wave axis (test code = 270) EKG impression (test Accelerated Junctional code = 273) rhythm with premature ventricular complexes or fusion complexes-Cannot rule out Inferior infarct (cited on or before 07-JUL-2021)-Bakarii peewee Signed By Ashley Brandt ([id number]) on 07/10/2021 6:34:10 PM [facility] [id number] 10:46:00 Test Item Value Reference Range Interpretation Comments ABO grouping (test code = 883-9) A Rh type (test code = 81831-5) POS Antibody screen (gel) (test code = NEG 890-4) [facility] [id number] 07:54:00 Test Item Value Reference Range Interpretation Comments Urine culture (test SEE COMMENT Bacteriu gwen screen code = 5448310) negative. [facility] ED Preliminary Interpretation - Not an [id number] 03:57:09 Test Item Value Reference Range Interpretation Comments CRUZ (test code = CRUZ) Mehdi Abarca MD 07/08/2021 1:28 [facility] ED Preliminary Interpretation - Not an OrderPerformed by: Mehdi Abarca, MDAuthorized by: Mehdi Abarca MD ECG reviewed by ED Physician in the absence of a golf course architect: yes Interpretation: Interpretation: abnormal Rate: ECG rate: 107 ECG rate assessment: tachycardic Rhythm: Rhythm: sinus rhythm QRS: QRS axis: Normal QRS intervals: NormalConduction: Conduction: normal ST segments: ST segments: NormalT waves: T waves: inverted Inverted: III and V1 Lab Interpretation Abnormal (test code = 46061-2) [facility]
[2022-01-20] MEDS ORDERED: METHYLPREDNISOLONE 125 MG INJ ONE (20:04)
[2022-01-20] MEDS ORDERED: ALBUTEROL 2.5 MG/3 ML NEB SOL ONE (20:05)
[2022-01-20] MEDS ORDERED: LEVALBUTEROL 1.25 MG/3 ML NEB ONE (21:07)
--- NOTE | 2022-01-20 21:26 | ER ---
Nurse's Notes [facility] Name: Jessica Brannon Age: 41 yrs Sex: Female : 1980 Arrival Date: 01/20/2022 Time: 19:21 Bed 24 Private MD: Diagnosis: Mild intermittent asthma with (acute) exacerbation Presentation: 01/20 19:32 Chief complaint: Patient states: Pt c/o cp with sob that began today .[facility]. Pt ll1 has had an albuterol neb 1 hour ago and has used inhaler twice. Coronavirus screen: Vaccine status: Patient reports being unvaccinated. Ebola Screen: No symptoms or risks identified at this time. Initial Sepsis Screen: Does the patient meet any 2 criteria? No. Patient's initial sepsis screen is negative. Does the patient have a suspected source of infection? No. Patient's initial sepsis screen is negative. Onset of symptoms was January 20, 2022. 19:32 Method Of Arrival: Ambulatory ll1 19:32 Acuity: JACINTA 3 ll1 21:39 Risk Assessment: Do you want to hurt yourself or someone else? Patient reports no tk1 desire to harm self or others. Triage Assessment: 21:39 General: Appears Behavior is calm, cooperative, appropriate for age. 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 Flu vaccine is up to date. - Social history:: Smoking status: Patient denies any tobacco usage or history of. Screenin:40 Abuse screen: Denies threats or abuse. Denies injuries from another. Nutritional tk1 screening: No deficits noted. Tuberculosis screening: No symptoms or risk factors identified. Fall Risk None identified. Assessment: 19:40 Pain: Complains of pain in chest Pain does not radiate. Pain currently is 8 out of 10 tk1 on a pain scale. Quality of pain is described as tightness Pain began 1 day ago. Is intermittent, Alleviated by pain when coughing. 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 Gait is steady, Speech is normal. Cardiovascular: Capillary refill < 3 seconds is brisk in bilateral fingers Clubbing of nail beds is absent Rhythm is sinus rhythm. Respiratory: Airway is patent Respiratory effort is even, unlabored, Respiratory pattern is regular, symmetrical, Breath sounds with wheezes bilaterally. in right upper lobe, left upper lobe, left posterior upper lobe and right posterior upper lobe the patient has moderate shortness of breath. Respiratory: Reports cough that is non-productive, pain with cough since yesterday Pain is 8 out of 10 on a pain scale. Respiratory: Reports. GI: No deficits noted. No signs and/or symptoms were reported involving the gastrointestinal system. : No deficits noted. No signs and/or symptoms were reported regarding the genitourinary system. EENT:. Derm: No deficits noted. No signs and/or symptoms reported regarding the dermatologic system. Musculoskeletal: No deficits noted. No signs and/or symptoms reported regarding the musculoskeletal system. 20:44 Reassessment: 2nd neb tx completed. Patient states, easier to breath. Some expiratory tk1 wheezing continues. Will monitor. 21:38 Reassessment: D/C per MD order. Discharge/Prescription instructions given to patient tk1 and . Verbalized understanding. Vital Signs: 19:33 BP 120 / 55; Pulse 83; Resp 18; Temp 97.1; Pulse Ox 97% on R/A; Weight 104.33 kg; ll1 Height 5 ft. 5 in. (165.10 cm); 19:40 BP 105 / 62 LA Supine (auto/reg); Pulse 76 MON; Resp 25 S; Pulse Ox 98% on R/A; Pain tk1 8/10; 20:44 BP 116 / 60 LA Supine (auto/reg); Pulse 99 MON; Resp 22 S; Pulse Ox 100% on R/A; Pain tk1 0/10; 21:00 BP 108 / 57 LA Supine (auto/reg); Pulse 99 MON; Resp 23 S; Pulse Ox 100% on 10% tk1 Nebulizer Mask; Pain 0/10; 19:33 Body Mass Index 38.27 (104.33 kg, 165.10 cm) ll1 Vitals: 19:40 Cardiac Rhythm Assessment Regular Sinus rhythm. tk1 ED Course: 19:21 Patient arrived in ED. es 19:33 Triage completed. ll1 19:33 Arm band placed on left wrist. ll1 19:40 Patient has correct armband on for positive identification. Bed in low position. Call tk1 light in reach. Side rails up X2. 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 Pulse ox on. NIBP on. 19:40 Inserted saline lock: 20 gauge in right antecubital area, using aseptic technique. tk1 Blood collected. 19:44 Sameer Flowers PA is PHCP. jr8 19:44 Joshua Fuentes MD is Attending Physician. jr8 19:46 EKG completed in triage. Results shown to MD. ss7 19:52 Janet Crandall is Primary Nurse. tk1 21:17 No provider procedures requiring assistance completed. tk1 21:38 IV discontinued, intact, bleeding controlled, No redness/swelling at site. Pressure tk1 dressing applied. Administered Medications: 20:00 Drug: SOLU-Medrol (methylPrednisoLONE) 125 mg Route: IVP; Rate: 62.5 mg/min; Infused tk1 Over: 2 mins; Site: right antecubital; 20:48 Follow up: Response: No adverse reaction tk1 20:05 Drug: Albuterol 2.5 mg Route: Inhalation; Infused Over: 20 mins; tk1 20:25 Drug: Albuterol 2.5 mg Route: Inhalation; Infused Over: 20 mins; tk1 20:45 Drug: Albuterol 2.5 mg Route: Inhalation; Infused Over: 20 mins; tk1 21:18 Follow up: Response: Wheezing diminished tk1 21:05 Drug: Xopenex (levalbuterol) (3) 1.25 mg Route: Inhalation; Infused Over: 60 mins; tk1 Outcome: 21:25 Discharge ordered by . jr8 21:38 Discharged to home ambulatory, with family. tk1 21:38 Condition: stable 21:38 Discharge instructions given to patient, family, Instructed on discharge instructions, follow up and referral plans. medication usage, Demonstrated understanding of instructions, follow-up care, medications, Prescriptions given X 3. 21:39 Patient left the ED. tk1 Signatures: Rebecca Phillips Josh, PA PA jr8 Regla Juarez RN RN ll1 Janet Crandall tk1 Gordon, Arin, RN RN ss7 Corrections: (The following items were deleted from the chart) 20:23 20:05 Albuterol 2.5 mg Inhalation over 60 mins tk1 tk1
--- NOTE | 2022-01-20 21:26 | EDPHYS ---
Physician Documentation [facility] Name: Jessica Brannon Age: 41 yrs Sex: Female : 1980 Arrival Date: 01/20/2022 Time: 19:21 Bed 24 Private MD: JOSE RAUL Physician Joshua Fuentes HPI: 01/20 20:55 This 41 yrs old Female presents to ER via Ambulatory with complaints of Cough, jr8 Breathing Difficulty, Chest Pain. 20:55 The patient or guardian reports cough, that is intermittent, difficulty breathing. jr8 Onset: The symptoms/episode began/occurred today. 41-year-old female presents to the ER complaining of difficulty breathing and an asthma exacerbation. She states that she began feeling short of breath this morning, and that her symptoms worsened this afternoon. She states that she did a neb treatment 2 hours before arriving, but that her symptoms did not improve.. 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 Flu vaccine is up to date. - Social history:: Smoking status: Patient denies any tobacco usage or history of. ROS: 20:55 Constitutional: Negative for fever, chills, and weight loss, Cardiovascular: Negative jr8 for chest pain, palpitations, and edema, Skin: Negative for injury, rash, and discoloration, Neuro: Negative for headache, weakness, numbness, tingling, and seizure. 20:55 Respiratory: Positive for cough, shortness of breath, wheezing. 20:55 All other systems are negative. Exam: 20:55 Constitutional: This is a well developed, well nourished patient who is awake, alert, jr8 and in mild distress. Cardiovascular: Regular rate and rhythm with a normal S1 and S2. No gallops, murmurs, or rubs. Normal PMI, no JVD. No pulse deficits. Abdomen/GI: Soft, non-tender, with normal bowel sounds. No distension or tympany. No guarding or rebound. No evidence of tenderness throughout. Skin: Warm, dry with normal turgor. Normal color with no rashes, no lesions, and no evidence of cellulitis. Neuro: Awake and alert, GCS 15, oriented to person, place, time, and situation. Cranial nerves II-XII grossly intact. Motor strength 5/5 in all extremities. Sensory grossly intact. Cerebellar exam normal. Normal gait. 20:55 Respiratory: mild respiratory distress is noted, Respirations: accessory muscle usage, that is mild, Breath sounds: decreased breath sounds, are scattered, wheezing: expiratory is heard diffusely. Vital Signs: 19:33 BP 120 / 55; Pulse 83; Resp 18; Temp 97.1; Pulse Ox 97% on R/A; Weight 104.33 kg; ll1 Height 5 ft. 5 in. (165.10 cm); 19:40 BP 105 / 62 LA Supine (auto/reg); Pulse 76 MON; Resp 25 S; Pulse Ox 98% on R/A; Pain tk1 8/10; 20:44 BP 116 / 60 LA Supine (auto/reg); Pulse 99 MON; Resp 22 S; Pulse Ox 100% on R/A; Pain tk1 0/10; 21:00 BP 108 / 57 LA Supine (auto/reg); Pulse 99 MON; Resp 23 S; Pulse Ox 100% on 10% tk1 Nebulizer Mask; Pain 0/10; 19:33 Body Mass Index 38.27 (104.33 kg, 165.10 cm) ll1 MDM: 19:44 Patient medically screened. 8 21:18 Data reviewed: vital signs, nurses notes, and as a result, I will discharge patient. jr8 Data interpreted: Pulse oximetry: on room air is 100 %. Interpretation: normal. Counseling: I had a detailed discussion with the patient and/or guardian regarding: the historical points, exam findings, and any diagnostic results supporting the discharge/admit diagnosis, the need for outpatient follow up, a family practitioner, to return to the emergency department if symptoms worsen or persist or if there are any questions or concerns that arise at home. Response to treatment: the patient's symptoms have markedly improved after treatment. 01/20 19:55 Order name: IV; Complete Time: 19:58 jr8 Administered Medications: 20:00 Drug: SOLU-Medrol (methylPrednisoLONE) 125 mg Route: IVP; Rate: 62.5 mg/min; Infused tk1 Over: 2 mins; Site: right antecubital; 20:48 Follow up: Response: No adverse reaction tk1 20:05 Drug: Albuterol 2.5 mg Route: Inhalation; Infused Over: 20 mins; tk1 20:25 Drug: Albuterol 2.5 mg Route: Inhalation; Infused Over: 20 mins; tk1 20:45 Drug: Albuterol 2.5 mg Route: Inhalation; Infused Over: 20 mins; tk1 21:18 Follow up: Response: Wheezing diminished tk1 21:05 Drug: Xopenex (levalbuterol) (3) 1.25 mg Route: Inhalation; Infused Over: 60 mins; tk1 Disposition: 01/21 05:35 Co-signature as Attending Physician, Joshua Fuentes MD I agree with the assessment and shaina plan of care. Disposition Summary: 01/20/22 21:25 Discharge Ordered Location: Home jr8 Problem: new jr8 Symptoms: have improved jr8 Condition: Stable jr8 Diagnosis - Mild intermittent asthma with (acute) exacerbation jr8 Followup: jr8 - With: Private Physician - When: 2 - 3 days - Reason: Recheck today's complaints, Continuance of care, Re-evaluation by your physician Discharge Instructions: - Discharge Summary Sheet jr8 - Asthma, Adult jr8 Forms: - Work release form jr8 - Medication Reconciliation Form jr8 - Thank You Letter jr8 - Antibiotic Education jr8 - Prescription Opioid Use jr8 Prescriptions: - albuterol sulfate 90 mcg/actuation Inhalation HFA aerosol inhaler - inhale 2 puff by INHALATION route every 4-6 hours As needed; 1 Inhaler; jr8 Refills: 0, Product Selection Permitted - Albuterol Sulfate 2.5 mg /3 mL (0.083 %) Inhalation Solution for Nebulization - inhale 1 unit by NEBULIZATION route every 8 hours As needed; 1 box; Refills: 0, jr8 Product Selection Permitted - Medrol (Chilango) 4 mg Oral Tablets, Dose Pack - take 1 tablet by ORAL route as directed - follow package instructions; 1 jr8 packet; Refills: 0, Product Selection Permitted Signatures: Joshua Fuentes MD MD cha Roszak, Josh, PA PA jr8 Regla Juarez RN RN ll1 Janet Crandall tk1
[2022-01-20 23:08] VITALS: TEMP 97.1
[2022-01-20 23:10] VITALS: O2SAT 100
[2022-01-20 23:12] VITALS: BP 108/57
== END 2022-01-20 21:39 | disposition home or self-care (01) ==
LOC: ER 19:19
DX: J45.21 Mild intermittent asthma with (acute) exacerbation (principal); Z88.8 Allergy status to other drugs, medicaments and biological substances
CPT/HCPCS: 93005; 96374; 99285; J2930

== ENCOUNTER 2022-02-26 20:20 | Emergency (ER) | payer BC ==
--- OUTSIDE RECORDS SUMMARY | 2022-02-26 20:23 | XMS REPORT | Continuity of Care Document ---
:1980 Author Organization [facility] t Address [facility] [address] [place] [address] Care Team Providers Name Role Phone Asked, [...] non-user Hospital Sex Assigned At [birth year] [facility] 00:00:00 00:00:00 Hospital Smoking Status Start Date Stop Date Source Never smoked tobacco [facility] Medications Ordered Filled Start Stop [...] Source Systolic blood 2021-07-16 21:35:55 117 mm[Hg] [facility] pressure Diastolic blood 2021-07-16 21:35:55 74 mm[Hg] [facility] pressure Heart rate 2021-07-16 21:35:55 104 /min [facility] Body temperature 2021-07-16 21:35:55 35.83 [facility] Respiratory rate 2021-07-16 21:35:55 20 /min [facility] Oxygen saturation in 2021-07-16 21:35:55 97 /min [facility] Arterial blood by Pulse oximetry Body height 2021-07-08 02:22:00 165.1 cm [facility] Body weight 2021-07-08 02:22:00 111.131 kg [facility] BMI 2021-07-08 02:22:00 40.77 kg/m2 [facility] Procedures Procedure Date / Time Performing Clinician Source Performed DURABLE MEDICAL EQUIPMENT 2021-07-16 16:49:[facility]-REACTIVE PROTEIN 2021-07-16 09:19:00 Lock, [facility] D-DIMER 2021-07-16 09:19:00 Spike, [facility] XR CHEST 1 VW PORTABLE 2021-07-15 17[facility]21:[facility] PROTE[facility] 2021-07-15 10:39:00 Lock, [facility] D-DIMER 2021-07-15 10:39:00 Spike, [facility] BASIC METABOLIC PANEL 2021-07-14 10:53:00 Lock, [facility] HC COMPLETE BLD COUNT 2021-07-14 10:53:00 Spike, [facility] W/AUTO DIFF C-REACTIVE PROTEIN 2021-07-14 10:53:00 Lock, [facility] D-DIMER 2021-07-14 10:53:00 Lock [facility] ESTIMATED GFR 2021-07-14 10:53:00 Spike [facility] POC GLUCOSE 2021-07-14 02:20:00 Sae [facility] C-REACTIVE PROTEIN 2021-07-13 10:48:00 Penny [facility] FERRITIN LEVEL 2021-07-13 10:48:00 Sae Gonzales [facility]ital LDH 2021-07-13 10:48:00 Sae Gonzales [facility] D-DIMER 2021-07-13 10:48:00 Sae Gonzales [facility] BASIC METABOLIC PANEL 2021-07-13 10:48:00 Spike [facility] HC COMPLETE BLD COUNT 2021-07-13 10:48:00 Spike [facility] W/AUTO DIFF ESTIMATED GFR 2021-07-13 10:48:00 Spike [facility] C-REACTIVE PROTEIN 2021-07-12 09:43:00 Penny [facility] FERRITIN LEVEL 2021-07-12 09:43:00 Sae Gonzales [facility]ital LDH 2021-07-12 09:43:00 Sae Gonzales spital D-DIMER 2021-07-12 09:43:00 Sae Gonzales Ho [facility]ital BASIC METABOLIC PANEL 2021-07-12 09:43:00 Spike [facility] HC COMPLETE BLD COUNT 2021-07-12 09:43:00 Spike [facility] W/AUTO DIFF ESTIMATED GFR 2021-07-12 09:43:00 Spike [facility] COMPREHENSIVE METABOLIC 2021-07-11 10:04:00 Sae Gonzales [facility] PANEL HC COMPLETE BLD COUNT 2021-07-11 10:04:00 [facility] W/AUTO DIFF C-REACTIVE PROTEIN 2021-07-11 10:04:00 [facility] FERRITIN LEVEL 2021-07-11 10:04:00 [facility] LDH 2021-07-11 10:04:00 PennySae zelaya [facility] D-DIMER 2021-07-11 10:04:00 Penny Sae Laguerre spital ESTIMATED GFR 2021-07-11 10:04:00 Penny [facility] spital D-DIMER 2021-07-10 09:50:00 Penny Mcconnells [facility] HC COMPLETE BLD COUNT 2021-07-10 09:50:00 [facility] W/AUTO DIFF INTERLEUKIN 6 2021-07-10 08:35:00 Tommie Clark ospital CBC WITH PLATELET AND 2021-07-10 08:35:00 [facility]FFERENTIAL COMPREHENSIVE METABOLIC 2021-07-10 08:35:00 Tommie Clark [facility] PANEL TROPONIN 2021-07-10 08:35:00 Tommie Clark ospital D-DIMER 2021-07-10 08:35:00 Tommie Clark ospital C-REACTIVE PROTEIN 2021-07-10 08:35:00 [facility] 2021-07-10 08:35:00 Tommie Clark ospital FERRITIN LEVEL 2021-07-10 08:35:00 Tommie Clark ospital ESTIMATED GFR 2021-07-10 08:35:00 Tommie Clark ospital INTERLEUKIN 6 2021-07-09 08:27:00 Tommie lCark ospital HC COMPLETE BLD COUNT 2021-07-09 08:27:00 Cleo [facility] W/AUTO DIFF COMPREHENSIVE METABOLIC 2021-07-09 08:27:00 Tommie Clark [facility] PANEL TROPONIN 2021-07-09 08:27:00 Tommie Clark ospital D-DIMER 2021-07-09 08:27:00 Tommie Clark [facility] C-REACTIVE PROTEIN 2021-07-09 08:27:00 Cleo [facility] LDH 2021-07-09 08:27:00 Tommie Clark ospital FERRITIN LEVEL 2021-07-09 08:27:00 Tommie Clark ospital ESTIMATED GFR 2021-07-09 08:27:00 Tommie Clark ospital ECG 12-LEAD 2021-07-09 00:13:21 Tommie Clark ospital INTERLEUKIN 6 2021-07-08 09:24:00 Tommie Clark HC COMPLETE BLD COUNT 2021-07-08 09:24:00 Cleo [facility] W/AUTO DIFF COMPREHENSIVE METABOLIC 2021-07-08 09:24:00 Cleo [facility] PANEL TROPONIN 2021-07-08 09:24:00 Tommie Clark [facility] D-DIMER 2021-07-08 09:24:00 Tommie Clark ospital C-REACTIVE PROTEIN 2021-07-08 09:24:00 Cleo [facility] LDH 2021-07-08 09:24:00 Tommie Clark ospital FERRITIN LEVEL 2021-07-08 09:24:00 Tommie Clark neymar TYPE AND SCREEN 2021-07-08 09:24:00 Tommie Clark [facility] HEMOGLOBIN A1C 2021-07-08 09:24:00 Tommie Clark ospital PROCALCITONIN 2021-07-08 09:24:00 [facility] ESTIMATED GFR 2021-07-08 09:24:00 Tommie Clark ospital LACTIC ACID LEVEL 2021-07-08 09:24:00 [facility] CREATINE KINASE, TOTAL 2021-07-08 09:24:00 [facility] ANGIOGRAM PE CHEST 2021-07-08 07:37:03 [facility] URINE CULTURE 2021-07-08 07:26:[facility]INALYSIS SCREEN AND 2021-07-08 07:06:00 [facility] MICROSCOPY, WITH REFLEX TO CULTURE LEGIONELLA URINARY 2021-07-08 07:05:00 [facility] ANTIGEN STREPTOCOCCUS PNEUMONIAE 2021-07-08 07:05:00 [facility] URINARY ANTIGEN RESPIRATORY PATHOGEN 2021-07-08 04:46:00 Tevin, [facility] PANEL WITH COVID-19 RT-PCR BLOOD CULTURE, AEROBIC & 2021-07-08 04:38:00 Tevin, [facility] ANAEROBIC COMPREHENSIVE METABOLIC 2021-07-08 04:27:00 Tevin, [facility] PANEL PHOSPHORUS LEVEL 2021-07-08 04:27:00 Tevin, [facility] MAGNESIUM LEVEL 2021-07-08 04:27:00 Tevin, [facility] LACTIC ACID LEVEL, SEPSIS 2021-07-08 04:27:00 Tevin, [facility] - NOW AND REPEAT 2X EVERY 3 HOURS HC COMPLETE BLD COUNT 2021-07-08 04:27:00 Tevin, [facility] W/AUTO DIFF PROTHROMBIN TIME WITH INR 2021-07-08 04:27:00 Tevin, [facility] PARTIAL THROMBOPLASTIN 2021-07-08 04:27:00 Tevin [facility] TIME (PTT) HCG QUALITATIVE, SERUM 2021-07-08 04:27:00 TevinMehdi patel [facility] SCREEN TROPONIN 2021-07-08 04:27:00 Tevin, [facility] B NATRIURETIC PEPTIDE 2021-07-08 04:27:00 Tevin [facility] ESTIMATED GFR 2021-07-08 04:27:00 Tevin [facility] XR CHEST 1 VW PORTABLE 2021-07-08 04:23:00 Tevin, Mehdiamy Perales [facility] MA CRITICAL CARE, E/M 2021-07-08 03:57:09 Mehdi Abarca [facility] 30-74 MINUTES ECG ED PRELIMINARY 2021-07-08 03:57:09 TevinJoseMehdi [facility] INTERPRETATION ECG 12-LEAD 2021-07-08 03:42:09 [facility] Planned Activity Planned Date Details Comments Source Future Scheduled 2021-11-30 COVID-[address] [facility] Test 17:13:06 (1) [code = COVID-19 VACCINE (1)] Future Scheduled 2021-11-[address] [facility] ospital Test 17:13:06 screening (procedure) [code = 612323589] Future Scheduled 2021-11-30 Screening for [facility] Test 17:13:06 malignant neoplasm of cervix (procedure) [code = 857399225] Future Scheduled 2021-11-30 INFLUENZA VACCINE [facility] Test 17:13:06 [code = INFLUENZA VACCINE] Encounters Start End Encounter Admission Attending Care Care Encounter Source Date/Time Date/Time Type Type Clinicians Facility Department ID 2021-07-07 2021-07-[id number] [place] 00:00:00 00:00:00 Encounter SAE [id number] [id number] Results Test Description Test Time Test Comments Results Result Comments Source Donaldo John + 1 more item 2021-07-17 00:13:15 Test Item Value Reference Range Interpretation [facility] SUPPLIER NAME (test code = 6415) [facility] SUPPLIER PHONE (test code = 6416) [phone] ORDER STATUS (test code = 6417) Delivery Successful DELIVERY NOTE (test code = 6419) REQUESTED DELIVEY DATE (test code = 6420) 07/16/2021 ITEM DESCRIPTION (test code = 6423) Donaldo Lopez, Adult Qty: 1 EXPECTED DELIVERY DATE (test code = 6421) 07/16/2021 ACTUAL DELIVERY DATE (test code = 6422) 07/16/2021 [facility] [id number] 02:21:12 Test Item Value Reference Range Interpretation Comments POC glucose (test code = 291 mg/dL 65-99 H Ope rator Name: [id number]) Amber Coates ice ID: [id number] able : [facility] 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 help 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 Interpretation (test Abnormal code = 51269-4) [facility] 12 [id number] 23:34:12 Test Item Value Reference Range Interpretation [...] Ashley Brandt ([id number]) on 07/10/2021 6:34:10 PM [facility] [id number] 10:46:00 Test Item Value Reference Range Interpretation Comments ABO grouping (test code = 883-9) A Rh type (test code = 36986-5) POS Antibody screen (gel) (test code = NEG 890-4) [facility] [id number] 07:54:00 Test Item Value Reference Range Interpretation Comments Urine culture (test SEE COMMENT Bacteriu gwen screen code = 7602212) negative. [facility] ED Preliminary Interpretation - Not an [id number] 03:57:09 Test Item Value Reference Range Interpretation Comments CRUZ (test code = CRUZ) Mehdi Abarca MD 07/08/2021 1:28 [facility] ED Preliminary Interpretation - Not an OrderPerformed by: Mehdi Abarca, MDAuthorized by: Mehdi Abarca MD ECG reviewed by ED Physician in the absence of a plant safety leader: yes Interpretation: Interpretation: abnormal Rate: ECG rate: 107 ECG rate assessment: tachycardic Rhythm: Rhythm: sinus rhythm QRS: QRS axis: Normal QRS intervals: NormalConduction: Conduction: normal ST segments: ST segments: NormalT waves: T waves: inverted Inverted: III and V1 Lab Interpretation Abnormal (test code = 88963-8) [facility]
[2022-02-26] MEDS ORDERED: ALBUTEROL 2.5 MG/3 ML NEB SOL ONE (21:44)
[2022-02-26] MEDS ORDERED: IPRATROPIUM BROM 0.5MG/2.5ML ONE (21:44)
--- NOTE | 2022-02-27 00:26 | EDPHYS ---
Physician Documentation [facility] Name: Jessica Brannon Age: 41 yrs Sex: Female : 1980 Arrival Date: 02/26/2022 Time: 20:23 Bed 5 Private MD: ED Physician Joselo Figueroa HPI: 02/26 21:25 This 41 yrs old Female presents to ER via Ambulatory with complaints of mh7 Productive Cough. 21:25 The patient or guardian reports cough, that is intermittent, described as moderate, mh7 with productive sputum, that is green. The patient or guardian reports wheezing. Onset: The symptoms/episode began/occurred 1.5 week(s) ago. Severity of symptoms: At their worst the symptoms were moderate, 4 day(s) ago, in the emergency department the symptoms are unchanged. Modifying factors: The symptoms are alleviated by nothing, the symptoms are aggravated by animal dander, smoke. Associated signs and symptoms: Pertinent negatives: chest pain, diarrhea, ear ache, fever, nausea, rhinorrhea, sore throat, vomiting. States that she has had a productive cough and wheezing with asthma over the week and a half. denies any other complaints.. Historical: - Allergies: 20:52 Prednisone; ab2 - Home Meds: 02/27 00:40 Albuterol Nebulizer Inhl [Active]; lp1 - PMHx: 02/26 20:52 Asthma; ab2 - PSHx: 20:52 Appendectomy; ab2 - Immunization history:: Adult Immunizations up to date. - Social history:: Smoking status: Patient denies any tobacco usage or history of. ROS: 21:25 Constitutional: Negative for fever, chills, and weight loss, Eyes: Negative for injury, mh7 pain, redness, and discharge, ENT: Negative for injury, pain, and discharge, Neck: Negative for injury, pain, and swelling, Cardiovascular: Negative for chest pain, palpitations, and edema, Abdomen/GI: Negative for abdominal pain, nausea, vomiting, diarrhea, and constipation, Back: Negative for injury and pain, : Negative for injury, bleeding, discharge, and swelling, MS/Extremity: Negative for injury and deformity, Skin: Negative for injury, rash, and discoloration, Neuro: Negative for headache, weakness, numbness, tingling, and seizure, Psych: Negative for depression, anxiety, suicide ideation, homicidal ideation, and hallucinations, Allergy/Immunology: Negative for hives, rash, and allergies, Endocrine: Negative for neck swelling, polydipsia, polyuria, polyphagia, and marked weight changes, Hematologic/Lymphatic: Negative for swollen nodes, abnormal bleeding, and unusual bruising. Exam: 21:25 Constitutional: This is a well developed, well nourished patient who is awake, alert, mh7 and in no acute distress. Head/Face: Normocephalic, atraumatic. Eyes: Pupils equal round and reactive to light, extra-ocular motions intact. Lids and lashes normal. Conjunctiva and sclera are non-icteric and not injected. Cornea within normal limits. Periorbital areas with no swelling, redness, or edema. ENT: Nares patent. No nasal discharge, no septal abnormalities noted. Tympanic membranes are normal and external auditory canals are clear. Oropharynx with no redness, swelling, or masses, exudates, or evidence of obstruction, uvula midline. Mucous membranes moist. Neck: Trachea midline, no thyromegaly or masses palpated, and no cervical lymphadenopathy. Supple, full range of motion without nuchal rigidity, or vertebral point tenderness. No Meningismus. Chest/axilla: Normal chest wall appearance and motion. Nontender with no deformity. No lesions are appreciated. Cardiovascular: Regular rate and rhythm with a normal S1 and S2. No gallops, murmurs, or rubs. Normal PMI, no JVD. No pulse deficits. 21:25 Abdomen/GI: Soft, non-tender, with normal bowel sounds. No distension or tympany. No guarding or rebound. No evidence of tenderness throughout. Back: No spinal tenderness. No costovertebral tenderness. Full range of motion. Skin: Warm, dry with normal turgor. Normal color with no rashes, no lesions, and no evidence of cellulitis. MS/ Extremity: Pulses equal, no cyanosis. Neurovascular intact. Full, normal range of motion. Neuro: Awake and alert, GCS 15, oriented to person, place, time, and situation. Cranial nerves II-XII grossly intact. Motor strength 5/5 in all extremities. Sensory grossly intact. Cerebellar exam normal. Normal gait. Psych: Awake, alert, with orientation to person, place and time. Behavior, mood, and affect are within normal limits. 21:25 Respiratory: the patient does not display signs of respiratory distress, Respirations: prolonged exhalation, that is mild, Breath sounds: rhonchi, that are mild, are scattered, wheezing: expiratory that is mild, is heard diffusely, Respiratory rate: 18 Vital Signs: 20:50 BP 125 / 85; Pulse 85; Resp 17; Temp 98.9; Pulse Ox 96% on R/A; Weight 108.86 kg; ab2 Height 5 ft. 5 in. (165.10 cm); Pain 8/10; 23:00 BP 107 / 72; Pulse 79; Resp 17; Pulse Ox 98% on R/A; lp1 23:45 BP 125 / 66; Pulse 86; Resp 17; Pulse Ox 99% on R/A; lp1 05 00:30 BP 109 / 76; Pulse 79; Resp 14; Pulse Ox 99% on R/A; lp1 04 20:50 Body Mass Index 39.94 (108.86 kg, 165.10 cm) ab2 MDM: 00:20 Differential Diagnosis: Bronchitis Upper Respiratory Infection Asthma Exacerbation mh7 Viral Syndrome Pneumonia. Data reviewed: vital signs, nurses notes, radiologic studies, plain films. Data interpreted: Pulse oximetry: on room air is 98 %. Interpretation: normal. Counseling: I had a detailed discussion with the patient and/or guardian regarding: the historical points, exam findings, and any diagnostic results supporting the discharge/admit diagnosis, radiology results, the need for outpatient follow up, to return to the emergency department if symptoms worsen or persist or if there are any questions or concerns that arise at home. Response to treatment: the patient's symptoms have resolved after treatment, the patient's blood pressure is in an acceptable range, mental status has returned to baseline, the patient no longer shows bradycardia, the patient is not short of breath, the patient is not tachycardic, the patient's pain is gone, the patient's temperature has normalized. 00:25 Patient medically screened. mh 02/26 21:25 Order name: Chest Single View XRAY mh7 Administered Medications: 02/26 21:45 Drug: Albuterol - atroVENT (ipratropium) (3:1) (2.5 mg - 0.5 mg) 3 ml Route: Nebulizer; ag7 23:15 Follow up: Response: Wheezing diminished lp1 22:49 CANCELLED (wrong medicationn): predniSONE 60 mg PO once [facility] Disposition Summary: 02/27/22 00:25 Discharge Ordered Location: Home [facility] Problem: an acute exacerbation [facility] Symptoms: have improved [facility] Condition: Stable [facility] Diagnosis - Unspecified asthma with (acute) exacerbation [facility] - Acute upper respiratory infection, unspecified [facility] Followup: [facility] - With: Private Physician - When: 1 - 2 days - Reason: Worsening of condition, Recheck today's complaints, Continuance of care, Re-evaluation by your physician Discharge Instructions: - Discharge Summary Sheet [facility] - Asthma, Adult [facility] - Upper Respiratory Infection, Adult [facility] Forms: - Medication Reconciliation Form [facility] - Thank You Letter [facility] - Antibiotic Education [facility] - Prescription Opioid Use [facility] Prescriptions: - Albuterol Sulfate 2.5 mg /3 mL (0.083 %) Inhalation Solution for Nebulization - inhale 1 unit by NEBULIZATION route every 8 hours As needed; 1 box; Refills: 0, [facility] Product Selection Permitted - Zithromax Z-Chilango 250 mg Oral Tablet - take 1 tablet by ORAL route as directed for 5 days Day 1 - take two (2) tablets 7 one time. Day 2, 3, 4 , 5 take one (1) tablet once daily.; 6 tablet; Refills: 0, Product Selection Permitted - Tessalon Perles 100 mg Oral Capsule - take 1 capsule by ORAL route every 8 hours As needed; 15 capsule; Refills: 0, [facility] Product Selection Permitted - Medrol (Chilango) 4 mg Oral Tablets, Dose Pack - take 1 tablet by ORAL route as directed - follow package instructions; 1 [facility] packet; Refills: 0, Product Selection Permitted Signatures: Dispatcher [employer] Leora Kelly RN RN lp1 Joselo Figueroa MD MD [address] Angela, RN RN 7 Corrections: (The following items were deleted from the chart) 22:49 22:48 predniSONE 60 mg PO once ordered. [place] [id number]
--- NOTE | 2022-02-27 00:26 | ER ---
Nurse's Notes [facility] Name: Jessica Brannon Age: 41 yrs Sex: Female : 1980 Arrival Date: 02/26/2022 Time: 20:23 Bed 5 Private MD: Diagnosis: Unspecified asthma with (acute) exacerbation;Acute upper respiratory infection, unspecified Presentation: 02/26 20:50 Chief complaint: Patient states: "I've been coughing up a lot of mucous for about a ab2 week now and I cant get it to stop. I feel like I cant catch my breath.". Coronavirus screen: Vaccine status: Patient reports being unvaccinated. Client denies travel out of the [place] in the last 14 days. At this time, the client does not indicate any symptoms associated with coronavirus-19. Ebola Screen: Patient negative for fever greater than or equal to 101.5 degrees Fahrenheit, and additional compatible Ebola Virus Disease symptoms Patient denies exposure to infectious person. Patient denies travel to an Ebola-affected area in the 21 days before illness onset. No symptoms or risks identified at this time. Initial Sepsis Screen: Does the patient meet any 2 criteria? Does the patient have a suspected source of infection? No. Patient's initial sepsis screen is negative. Risk Assessment: Do you want to hurt yourself or someone else? Patient reports no desire to harm self or others. Onset of symptoms is unknown. 20:50 Method Of Arrival: Ambulatory ab2 20:50 Acuity: JACINTA 3 ab2 Triage Assessment: 20:53 General: Appears in no apparent distress. uncomfortable, Behavior is calm, cooperative, ab2 appropriate for age. Pain: Complains of pain in chest. Neuro: Level of Consciousness is awake, alert, obeys commands, Oriented to person, place, time, situation, Appropriate for age. Cardiovascular: Reports chest pain, shortness of breath, Patient's skin is warm and dry. Respiratory: Reports shortness of breath cough that is Onset: The symptoms/episode began/occurred one week, the patient has mild shortness of breath. Derm: Skin is intact, is healthy with good turgor. Historical: - Allergies: 20:52 Prednisone; ab2 - Home Meds: 02/27 00:40 Albuterol Nebulizer Inhl [Active]; lp1 - PMHx: 02/26 20:52 Asthma; ab2 - PSHx: 20:52 Appendectomy; ab2 - Immunization history:: Adult Immunizations up to date. - Social history:: Smoking status: Patient denies any tobacco usage or history of. Screenin:58 Abuse screen: Denies threats or abuse. Nutritional screening: No deficits noted. ag7 Tuberculosis screening: No symptoms or risk factors identified. Fall Risk No fall in past 12 months (0 pts). No secondary diagnosis (0 pts). No IV (0 pts). Ambulatory Aid- None/Bed Rest/Nurse Assist (0 pts). Gait- Normal/Bed Rest/Wheelchair (0 pts) Mental Status- Oriented to own ability (0 pts). Total Smith Fall Scale indicates No Risk (0-24 pts). Assessment: 21:56 General: Appears in no apparent distress. Behavior is calm, cooperative, appropriate ag7 for age. Pain: Denies pain. Neuro: Level of Consciousness is awake, alert, obeys commands, Oriented to person, place, situation, Appropriate for age. Cardiovascular: Heart tones S1 S2 present Patient's skin is warm and dry. Respiratory: Airway is patent Trachea midline Respiratory effort is even, unlabored, Breath sounds with wheezes bilaterally. 21:59 Cardiovascular: Rhythm is. ag7 23:00 Reassessment: Patient states feeling better. Neuro: Level of Consciousness is awake, lp1 alert, obeys commands, Oriented to person, place, time, situation. Cardiovascular: Patient's skin is warm and dry. Respiratory: Airway is patent Respiratory effort is even, significant wheezing to LLL, minimal wheezing to all other lung [place]ett. GI: Abdomen is obese. : No signs and/or symptoms were reported regarding the genitourinary system. EENT: No signs and/or symptoms were reported regarding the EENT system. Derm: Skin is pink, warm \\T\\ dry. Musculoskeletal: No deficits noted. 02/27 00:39 Reassessment: Patient appears in no apparent distress at this time. Patient is alert, lp1 oriented x 3, equal unlabored respirations, skin warm/dry/pink. Patient states feeling better. Patient states symptoms have improved. Vital Signs: 02/26 20:50 BP 125 / 85; Pulse 85; Resp 17; Temp 98.9; Pulse Ox 96% on R/A; Weight 108.86 kg; ab2 Height 5 ft. 5 in. (165.10 cm); Pain 8/10; 23:00 BP 107 / 72; Pulse 79; Resp 17; Pulse Ox 98% on R/A; lp1 23:45 BP 125 / 66; Pulse 86; Resp 17; Pulse Ox 99% on R/A; lp1 02/27 00:30 BP 109 / 76; Pulse 79; Resp 14; Pulse Ox 99% on R/A; lp1 02/26 20:50 Body Mass Index 39.94 (108.86 kg, 165.10 cm) ab2 ED Course: 02/26 20:23 Patient arrived in ED. bp1 20:52 Triage completed. ab2 20:53 Arm band placed on right wrist. ab2 20:58 Joselo Figueroa MD is Attending Physician. mh7 21:58 No provider procedures requiring assistance completed. ag7 21:59 Patient has correct armband on for positive identification. Placed in gown. Bed in low ag7 position. Call light in reach. Adult w/ patient. 22:29 Chest Single View XRAY In Process Unspecified. EDMS 23:22 Leora Baker, RN is Primary Nurse. lp1 02/27 00:39 Patient did not have IV access during this emergency room visit. lp1 Administered Medications: 02/26 21:45 Drug: Albuterol - atroVENT (ipratropium) (3:1) (2.5 mg - 0.5 mg) 3 ml Route: Nebulizer; ag7 23:15 Follow up: Response: Wheezing diminished lp1 22:49 CANCELLED (wrong medicationn): predniSONE 60 mg PO once [facility] Outcome: 02/27 00:25 Discharge ordered by . 7 00:40 Discharged to home ambulatory, with significant other. lp1 00:40 Condition: good 00:40 Discharge instructions given to patient, Instructed on discharge instructions, follow up and referral plans. medication usage, Demonstrated understanding of instructions, follow-up care, medications, Prescriptions given X 4. 00:41 Patient left the ED. lp1 Signatures: Dispatcher [employer] EDCT Leora Baker, RN RN lp1 Karen Gray bp1 Joselo Figueroa MD MD [facility] [address] ab2 Godrfey, Pearl, RN RN ag7 Corrections: (The following items were deleted from the chart) 02/26 21:58 21:56 General: Appears in no apparent distress. Behavior is calm, cooperative, ag7 appropriate for age, ag7 :58 21:56 Cardiovascular: Heart tones S1 S2 present Patient's skin is warm and dry. ag7 ag7
[2022-02-27 00:46] VITALS: TEMP 98.9
[2022-02-27 00:49] VITALS: O2SAT 99
[2022-02-27 00:50] VITALS: BP 109/76
--- NOTE | 2022-02-28 13:31 | RAD REPORT ---
EXAM DESCRIPTION: Chest Single View CLINICAL HISTORY: 1 years Female, COUGH Comparison: None FINDINGS: No focal lung consolidation. No pleural effusion. No pneumothorax. Cardiomediastinal silhouette is within normal limits. No acute osseous abnormality. IMPRESSION: No pulmonary opacities identified. Please note that chest radiographs have low sensitivi ty for subtle groundglass opacities. Electronically signed by: Tim Acosta DO 02/26/2022 11:29 PM CDT Due to temporary technical issues with the PACS/Fluency reporting system, reports are being signed by the in house radiologist without review as a courtesy to ensure prompt reporting. The interpreting r adiologist is fully responsible for the content of the report.
== END 2022-02-27 00:41 | disposition home or self-care (01) ==
LOC: ER 20:20
DX: J45.901 Unspecified asthma with (acute) exacerbation (principal); J06.9 Acute upper respiratory infection, unspecified
CPT/HCPCS: 71045; 93005; 94640; 99284

== ENCOUNTER 2022-09-06 01:01 | Emergency (ER) | payer BC ==
--- OUTSIDE RECORDS SUMMARY | 2022-09-06 01:04 | XMS REPORT | Continuity of Care Document ---
:1980 Author Organization [facility] t Address [address] [place] [address] Care Team Providers Name Role Phone Asked, No Pcp Primary Care Physician Unavailable SAE FRANCIS Attending Clinician Unavailable ELIO GALLO Admitting Clinician Unavailable Problems Condition Condition Condition Status Onset Resolution Last Treating Co mments Source Name Details Category Date Date Treatment Clinician Date COVID19 COVID19 Disease Active Metho di 07-16 st 00:00: Hospita 00 l Acute Acute Disease Active Methodi respirator respirator 07-08 st y failure y failure 00:00: Hosp karon with with 00 l hypoxia hypoxia Suspected Suspected Disease Active Met hodi COVID-19 COVID-19 07-08 st virus virus 00:00: Hospita infection infection 00 l Allergies, Adverse Reactions, Alerts This patient has no known allergies or adverse reactions. Social History Social Habit Start Date Stop Date Quantity Comments Source Tobacco use and 2021-07-08 2021-07-08 Smokeless tobacco Me thodist exposure 00:00:00 00:00:00 non-user Hospital Sex Assigned At [birth year] [facility] 00:[facility]:00 00:[facility]:00 Hospital Smoking Status Start Date Stop Date Source Never smoked tobacco [facility] Medications Ordered Filled Start Stop [...] No 500mg QD Take 500 Methodi n - 09-[address] (ZITHROMAX) 17:39: 00:00 mouth Hosp karon 500 MG 40 :00 daily. X 5 l tablet days, started on 07/03/21 albuterol Yes 2.5mg Q6H Take 2.5 Met hodi (ACCUNEB) 9-[address] 2.5 mg /3 17:39: nebulizati Ho spita mL (0.083 36 on every 6 l %) (six) nebulizer hours as solution needed for wheezing or shortness of breath. albuterol Yes 2.5mg Q6H Take 2.5 Met hodi (ACCUNEB) 9-[address] 2.5 mg /3 17:39: nebulizati Ho spita mL (0.083 36 on every 6 l %) (six) nebulizer hours as solution needed for wheezing or shortness of breath. dextrometho 2020- No 10mL Q4H Take 10 mL Methodi rphan-guaif 07-16-[address] enesin 00:00: 04:59 every 4 Hospita (ROBITUSSIN 00 :00 (four) l -DM) 10-100 hours as mg/5 mL needed for liquid cough for up to 30 days. fluticasone 2020- No QD Inhale 1 M ethodi furoate-daphne 07-1618 inhalation s t anteroL 00:00: 04:59 s once Hospita (BREO 00 :00 daily for l ELLIPTA) 30 days. 100-25 mcg/dose blister with device powder for inhalation famotidine 2020- No 20mg Q.5D Take 1 Meth apple (PEPCID) 20 07-16-18 tablet (20 s t MG tablet 00:00: 04:59 mg total) Ho spita 00 :00 by mouth 2 l (two) times a day for 30 days. apixaban 2020- No 2.5mg Q.5D Take 1 Metho di (ELIQUIS) 07-16 10-[address] 2.5 mg 00:00: 04:59 (2.5 mg Hospita tablet 00 :00 total) by l mouth 2 (two) times a day for 14 days. predniSONE No Take 2 [facility] apple (DELTASONE) 07-[address] 20 mg 00:00: 04:59 (40 [...] Source Systolic blood 2021-07-16 21:35:55 117 mm[Hg] [facility] pressure Diastolic blood 2021-07-16 21:35:55 74 mm[Hg] [facility] pressure Heart rate 2021-07-16 21:35:55 104 /min [facility] Body temperature 2021-07-16 21:35:55 35.83 [facility] Respiratory rate 2021-07-16 21:35:55 20 /min [facility] Oxygen saturation in 2021-07-16 21:35:55 97 /min [facility] Arterial blood by Pulse oximetry Body height 2021-07-08 02:22:00 165.1 cm [facility] Body weight 2021-07-08 02:22:00 111.131 kg [facility] BMI 2021-07-08 02:22:00 40.77 kg/m2 [facility] Procedures Procedure Date / Time Performing Clinician Source Performed DURABLE MEDICAL EQUIPMENT 2021-07-16 16:49:23 [place] C-REACTIVE PROTEIN 2021-07-16 09:19:00 Spike [facility] D-DIMER 2021-07-16 09:19:00 Spike [facility] XR CHEST 1 VW PORTABLE 2021-07-15 17:21:00 Es Hooker [facility] C-REACTIVE PROTEIN 2021-07-15 10:39:00 Spike [facility] D-DIMER 2021-07-15 10:39:00 Spike [facility] BASIC METABOLIC PANEL 2021-07-14 10:53:00 Lock, [facility] HC COMPLETE BLD COUNT 2021-07-14 10:53:00 Lock, [facility] W/AUTO DIFF C-REACTIVE PROTEIN 2021-07-14 10:53:00 Lock, [facility] D-DIMER 2021-07-14 10:53:00 Lock, [facility] ESTIMATED GFR 2021-07-14 10:53:00 Lock, [facility] POC GLUCOSE 2021-07-14 02:20:00 Sae [facility] C-REACTIVE PROTEIN 2021-07-13 10:48:00 Christian [facility] FERRITIN LEVEL 2021-07-13 10:48:00 Sae [facility] LDH 2021-07-13 10:48:00 [facility]ae [facility] D-DIMER 2021-07-13 10:48:00 [facility]ae [facility] BASIC METABOLIC PANEL 2021-07-13 10:48:00 Spike, [facility] HC COMPLETE BLD COUNT 2021-07-13 10:48:00 Spike [facility] W/AUTO DIFF ESTIMATED GFR 2021-07-13 10:48:00 Spike, [facility] C-REACTIVE PROTEIN 2021-07-12 09:43:00 Christian, [facility] FERRITIN LEVEL 2021-07-12 09:43:00 Sae [facility] LDH 2021-07-12 09:43:00 [facility]ae [facility] D-DIMER 2021-07-12 09:43:00 [facility] BASIC METABOLIC PANEL 2021-07-12 09:43:00 Spike, [facility] HC COMPLETE BLD COUNT 2021-07-12 09:43:00 Flakita Lala [facility] W/AUTO DIFF ESTIMATED GFR 2021-07-12 09:43:00 Flakita Lala [facility] COMPREHENSIVE METABOLIC 2021-07-11 10:04:00 [facility] PANEL HC COMPLETE BLD COUNT 2021-07-11 10:04:00 [facility] W/AUTO DIFF C-REACTIVE PROTEIN 2021-07-11 10:04:00 [facility] FERRITIN LEVEL 2021-07-11 10:04:00 [facility] 2021-07-11 10:04:00 [facility] [place] [facility] D-DIMER 2021-07-11 10:04:00 [facility] Sae [facility] spital ESTIMATED GFR 2021-07-11 10:04:00 [facility] [place] [facility] D-DIMER 2021-07-10 09:50:00 Christian [place] [facility] sp[facility] HC COMPLETE BLD COUNT 2021-07-10 09:50:00 [facility] W/AUTO DIFF INTERLEUKIN 6 2021-07-10 08:35:00 Elio Gallo ospital CBC WITH PLATELET AND 2021-07-10 08:35:00 [facility]HENSIVE METABOLIC 2021-07-10 08:35:00 Elio Gallo [facility] PANEL TROPONIN 2021-07-10 08:35:00 Elio Gallo ospital D-DIMER 2021-07-10 08:35:00 Elio Gallo ospital C-REACTIVE PROTEIN 2021-07-10 08:35:00 [facility] 2021-07-10 08:35:00 Elio Gallo ospital FERRITIN LEVEL 2021-07-10 08:35:00 Elio Gallo ospital ESTIMATED GFR 2021-07-10 08:35:00 Elio Gallo ospital INTERLEUKIN 6 2021-07-09 08:27:00 Elio Gallo ospital HC COMPLETE BLD COUNT 2021-07-09 08:27:00 Amber [facility] W/AUTO DIFF COMPREHENSIVE METABOLIC 2021-07-09 08:27:00 Amber [facility] PANEL TROPONIN 2021-07-09 08:27:00 Elio [facility]opital D-DIMER 2021-07-09 08:27:00 Elio Gallo ospital C-REACTIVE PROTEIN 2021-07-09 08:27:00 Amber [facility] LDH 2021-07-09 08:27:00 Elio Gallo ospital FERRITIN LEVEL 2021-07-09 08:27:00 Elio Gallopital ESTIMATED GFR 2021-07-09 08:27:00 Elio Gallo ospital ECG 12-LEAD 2021-07-09 00:13:21 Elio Gallo ospital INTERLEUKIN 6 2021-07-08 09:24:00 Elio [facility] COMPLETE BLD COUNT 2021-07-08 09:24[facility]PREHENSIVE METABOLIC 2021-07-08 09:24[facility] 2021-07-08 09:24:00 Elio Gallopital D-DIMER 2021-07-08 09:24:00 Elio Gallo ospital C-REACTIVE PROTEIN 2021-07-08 09:24:00 Amber [facility] LDH 2021-07-08 09:24:00 Elio Gallo ospital FERRITIN LEVEL 2021-07-08 09:24:00 Elio Gallo ospital TYPE AND SCREEN 2021-07-08 09:24:00 Elio Gallo ospital HEMOGLOBIN A1C 2021-07-08 09:24:00 Elio Gallo ospital PROCALCITONIN 2021-07-08 09:24:00 [facility] 2021-07-08 09:24:00 [facility] ospital LACTIC ACID LEVEL 2021-07-08 09:24:00 [facility] CREATINE KINASE, TOTAL 2021-07-08 09:24:00 [facility] CT ANGIOGRAM PE CHEST 2021-07-08 07:37:03 [facility] URINE CULTURE 2021-07-08 07:26:00 [facility] ospital URINALYSIS SCREEN AND 2021-07-08 07:06:00 [facility] MICROSCOPY, WITH REFLEX TO CULTURE LEGIONELLA URINARY 2021-07-08 07:05:00 [facility] ANTIGEN STREPTOCOCCUS PNEUMONIAE 2021-07-08 07:05:00 [facility] URINARY ANTIGEN RESPIRATORY PATHOGEN 2021-07-08 04:46:00 Tevin [facility] PANEL WITH COVID-19 RT-PCR BLOOD CULTURE, AEROBIC & 2021-07-08 04:38:00 Tevin [facility] ANAEROBIC COMPREHENSIVE METABOLIC 2021-07-08 04:27:00 Tevin [facility] PANEL PHOSPHORUS LEVEL 2021-07-08 04:27:00 Tevin [facility] MAGNESIUM LEVEL 2021-07-08 04:27:00 Tevin [facility] LACTIC ACID LEVEL, SEPSIS 2021-07-08 04:27:00 Tevin [facility] - NOW AND REPEAT 2X EVERY 3 HOURS HC COMPLETE BLD COUNT 2021-07-08 04:27:00 Tevin [facility] W/AUTO DIFF PROTHROMBIN TIME WITH INR 2021-07-08 04:27:00 Tevin [facility] PARTIAL THROMBOPLASTIN 2021-07-08 04:27:00 Tevin [facility] TIME (PTT) HCG QUALITATIVE, SERUM 2021-07-08 04:27:00 Mehdi Abarca [facility] SCREEN TROPONIN 2021-07-08 04:27:00 Tevin [facility] B NATRIURETIC PEPTIDE 2021-07-08 04:27:00 Mehdi Abarca [facility] ESTIMATED GFR 2021-07-08 04:27:00 [facility] VW PORTABLE 2021-07-08 04:23:00 Mehdi Abarca [facility] FL CRITICAL CARE, E/M 2021-07-08 03:57:09 Mehdi Abarca [facility] 30-74 MINUTES ECG ED PRELIMINARY 2021-07-08 03:57:09 [facility] 12-LEAD 2021-07-08 03:42:09 [facility] Plan of Care Planned Activity Planned Date Details Comments Source Future Scheduled 2022-09-06 COVID-19 VACCINE [facility] Test 01:03:37 (#1) [code = COVID-19 VACCINE (#1)] Future Scheduled 2022-09-06 Hepatitis C [facility] ospital Test 01:03:37 screening (procedure) [code = 045076829] Future Scheduled 2022-09-06 Screening for [facility] Test 01:03:37 malignant neoplasm of cervix (procedure) [code = 444668346] Future Scheduled 2022-09-06 BREAST CANCER [facility] Test 01:03:37 SCREENING [code = BREAST CANCER SCREENING] Future Scheduled 2022-09-06 INFLUENZA VACCINE Method [facility] Test 01:03:37 [code = INFLUENZA VACCINE] Future Scheduled 2022-09-06 HEPATITIS B [facility] ospital Test 01:03:37 VACCINES (1 of 3 - 3-dose series) [code = HEPATITIS B VACCINES (1 of 3 - 3-dose series)] Future Scheduled 2021-11-30 COVID-19 VACCINE [facility] Test 17:13:06 (1) [code = COVID-19 VACCINE (1)] Future Scheduled 2021-11-30 Hepatitis C [facility] Test 17:13:06 screening (procedure) [code = 257464050] Future Scheduled 2021-11-30 Screening for [facility] Test 17:13:06 malignant neoplasm of cervix (procedure) [code = 183263005] Future Scheduled 2021-11-30 INFLUENZA VACCINE Method [facility] Test 17:13:06 [code = INFLUENZA VACCINE] Encounters Start End Encounter Admission Attending Care Care Encounter Source Date/Time Date/Time Type Type Clinicians Facility Department ID 2021-07-07 2021-07-16 [facility] George [id number] Deary 00:00:00 00:00:00 Encounter SAE [id number] Results Test Description Test Time Test Comments Results Result Comments Source Donaldo Lopez + 1 more item 2021-07-17 00:13:15 Test Item Value Reference Range Interpretation Comme [facility] SUPPLIER NAME (test code = 6415) [facility] SUPPLIER PHONE (test code = 6416) [phone] ORDER STATUS (test code = 6417) Delivery Successful DELIVERY NOTE (test code = 6419) REQUESTED DELIVEY DATE (test code = 6420) 07/16/2021 ITEM DESCRIPTION (test code = 6423) Donaldo Lopez, Adult Qty: 1 EXPECTED DELIVERY DATE (test code = 6421) 07/16/2021 ACTUAL DELIVERY DATE (test code = 6422) 07/16/2021 [facility] [id number] 02:21:12 Test Item Value Reference Range Interpretation Comments POC glucose (test code = 291 mg/dL 65-99 H Ope rator Name: [id number]) Amber Coates ice ID: [id number] able : [facility] Notified mushroom packer Interpretation (test Abnormal code = 96642-7) [facility] 12 [id number] 23:34:12 Test Item Value Reference Range Interpretation [...] before 07-JUL-2021)-Bakarii peewee Signed By Ashley Brandt ([id number]) on 07/10/2021 6:34:10 PM [facility] and [id number] 10:46:00 Test Item Value Reference Range Interpretation Comments ABO grouping (test code = 883-9) A Rh type (test code = 63657-7) POS Antibody screen (gel) (test code = NEG 890-4) [facility] [id number] 07:54:00 Test Item Value Reference Range Interpretation Comments Urine culture (test SEE COMMENT Bacteriu gwen screen code = 5169607) negative. [facility] ED Preliminary Interpretation - Not an [id number] 03:57:09 Test Item Value Reference Range Interpretation Comments CRUZ (test code = CRUZ) Mehdi Abarca MD 07/08/2021 1:[address] [facility] Preliminary Interpretation - Not an OrderPerformed by: Mehdi Abarca [facility]ITAL[facility]horized by: Mehdi Abarca MD ECG reviewed by ED Physician in the absence of a assembly repairer: yes Interpretation: Interpretation: abnormal Rate: ECG rate: 107 ECG rate assessment: tachycardic Rhythm: Rhythm: sinus rhythm QRS: QRS axis: Normal QRS intervals: NormalConduction: Conduction: normal ST segments: ST segments: NormalT waves: T waves: inverted Inverted: III and V1 Lab Interpretation Abnormal (test code = 96302-1) [facility]
[2022-09-06] MEDS ORDERED: KETOROLAC 30 MG/ML INJ ONE (01:53)
[2022-09-06 02:04] LABS: Urine Blood Trace-intact (Negative); Urine Glucose Negative (Negative); Urine Protein Negative (Negative); Urine Specific Gravity >=1.030 (1.005-1.030); Urine pH 6.5 (5.0-7.0)
--- NOTE | 2022-09-06 02:15 | EDPHYS ---
Physician Documentation [facility] Name: Jessica Brannon Age: 41 yrs Sex: Female : 1980 Arrival Date: 09/06/2022 Time: 01:04 Bed 20 Private MD: ED Physician Ramiro Falk HPI: 09/06 01:41 This 41 yrs old Female presents to ER via Ambulatory with complaints of Hip sp3 Pain. 01:41 41-year-old female with history of asthma presents with left sided posterior sp3 radiculopathy in the lower extremity for approximately 48 hours. Patient denies any trauma or hyperextension. No prior incident of radiculopathy noted. She still retains the ability to walk and control bowel and bladder. Denies headache, neck pain, chest pain, shortness of breath, back pain, abdominal pain, nausea, vomiting, diarrhea, fever, any other extremity symptoms, or any other ROS at this time.. 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 - Social history:: Smoking status: Patient denies any tobacco usage or history of. ROS: 01:42 Constitutional: Negative for fever, chills, and weight loss, Eyes: Negative for injury, sp3 pain, redness, and discharge, ENT: Negative for injury, pain, and discharge, Neck: Negative for injury, pain, and swelling, Cardiovascular: Negative for chest pain, palpitations, and edema, Respiratory: Negative for shortness of breath, cough, wheezing, and pleuritic chest pain, Abdomen/GI: Negative for abdominal pain, nausea, vomiting, diarrhea, and constipation, MS/Extremity: Negative for injury and deformity, Skin: Negative for injury, rash, and discoloration, Psych: Negative for depression, anxiety, suicide ideation, homicidal ideation, and hallucinations, Allergy/Immunology: Negative for hives, rash, and allergies, Endocrine: Negative for neck swelling, polydipsia, polyuria, polyphagia, and marked weight changes. 01:42 All other systems are negative. Exam: 01:44 Constitutional: This is a well developed, well nourished patient who is awake, alert, sp3 and in no acute distress. Head/Face: Normocephalic, atraumatic. Eyes: Pupils equal round and reactive to light, extra-ocular motions intact. Lids and lashes normal. Conjunctiva and sclera are non-icteric and not injected. Cornea within normal limits. Periorbital areas with no swelling, redness, or edema. Neck: Trachea midline, no thyromegaly or masses palpated, and no cervical lymphadenopathy. Supple, full range of motion without nuchal rigidity, or vertebral point tenderness. No Meningismus. Chest/axilla: Normal chest wall appearance and motion. Nontender with no deformity. No lesions are appreciated. Cardiovascular: Regular rate and rhythm with a normal S1 and S2. No gallops, murmurs, or rubs. Normal PMI, no JVD. No pulse deficits. Respiratory: Lungs have equal breath sounds bilaterally, clear to auscultation and percussion. No rales, rhonchi or wheezes noted. No increased work of breathing, no retractions or nasal flaring. Abdomen/GI: Soft, non-tender, with normal bowel sounds. No distension or tympany. No guarding or rebound. No evidence of tenderness throughout. Back: No spinal tenderness. No costovertebral tenderness. Full range of motion. Skin: Warm, dry with normal turgor. Normal color with no rashes, no lesions, and no evidence of cellulitis. MS/ Extremity: Pulses equal, no cyanosis. Neurovascular intact. Full, normal range of motion. Psych: Awake, alert, with orientation to person, place and time. Behavior, mood, and affect are within normal limits. 01:44 Neuro: Positive pain on straight leg raise at approximately 40 degrees. Distal neurovascular exam is normal including pain and temperature and proprioception.. Vital Signs: 01:23 BP 123 / 60; Pulse 72; Resp 18 S; Temp 98(O); Pulse Ox 93% on R/A; Weight 104.33 kg bb (R); Height 5 ft. 5 in. (165.10 cm) (R); Pain 8/10; 01:23 Body Mass Index 38.27 (104.33 kg, 165.10 cm) bb MDM: 01:31 Patient medically screened. sp3 01:48 Data reviewed: vital signs, nurses notes. ED course: 41-year-old female with likely sp3 sciatica versus nerve root radiculopathy on the left are region. Patient does not have saddle anesthesia or loss of bowel and bladder control. Will obtain initial lumbosacral x-rays, give ketorolac IM, and obtain urine analysis. If work-up is negative, and patient feels better we will discharge her home to PCP follow-up for outpatient MRI and continued investigation. I am not highly concerned for any other critical findings including vascular/aorta pathology, epidural abscess, infectious etiology, or neurovascular compromise in any other way. Patient is okay with the plan and we will proceed from there.. 02:13 ED course: Lumbar x-rays are negative for any significant abnormality and urinalysis is sp3 normal. Discharge patient home on diclofenac p.o. with instructions to follow-up with her PCP for outpatient MRI.. 09/06 02:04 Order name: Urine Dipstick-Ancillary; Complete Time: 02:11 EDMS 09/06 01:31 Order name: Lumbar Spine (3 Views) XRAY sp3 09/06 01:31 Order name: Urine Dipstick-Ancillary (obtain specimen); Complete Time: 02:04 sp3 09/06 01:31 Order name: Urine Test (obtain specimen); Complete Time: 02:04 sp3 Administered Medications: 02:04 Drug: Ketorolac 60 mg Route: IM; Site: right vastus lateralis; kd3 02:20 Follow up: Response: Pain is decreased kd3 Disposition Summary: 09/06/22 02:14 Discharge Ordered Location: Home sp3 Condition: Stable sp3 Diagnosis - Radiculopathy, lumbar region sp3 Followup: sp3 - With: Private Physician - When: Upon discharge from the Emergency Department - Reason: Continuance of care Discharge Instructions: - Discharge Summary Sheet sp3 - Radicular Pain sp3 Forms: - Medication Reconciliation Form sp3 - Thank You Letter sp3 - Antibiotic Education sp3 - Prescription Opioid Use sp3 Prescriptions: - Diclofenac Sodium 75 mg Oral Tablet Sustained Release - take 1 tablet by ORAL route 2 times per day; 30 tablet; Refills: 0, Product sp3 Selection Permitted Signatures: Dispatcher [employer] EDMS Carmen Zheng RN RN bb Ramiro Falk MD MD sp3 Maty Mason RN RN kd3
--- NOTE | 2022-09-06 02:15 | ER ---
Nurse's Notes [facility] Name: Jessica Brannon Age: 41 yrs Sex: Female : 1980 Arrival Date: 09/06/2022 Time: 01:04 Bed 20 Private MD: Diagnosis: Radiculopathy, lumbar region Presentation: 09/06 01:23 Chief complaint: Patient states: she woke up yesterday with left hip pain she took some bb ibuprofen and it helped but it is worse now pain radiates down left leg pain is 8/10. Coronavirus screen: At this time, the client does not indicate any symptoms associated with coronavirus-19. Ebola Screen: No symptoms or risks identified at this time. Initial Sepsis Screen: Does the patient meet any 2 criteria? No. Patient's initial sepsis screen is negative. Does the patient have a suspected source of infection? No. Patient's initial sepsis screen is negative. Risk Assessment: Do you want to hurt yourself or someone else? Patient reports no desire to harm self or others. Onset of symptoms was September 05, 2022. 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 - Social history:: Smoking status: Patient denies any tobacco usage or history of. Screenin:05 Abuse screen: Denies threats or abuse. Denies injuries from another. Nutritional kd3 screening: No deficits noted. Tuberculosis screening: No symptoms or risk factors identified. Fall Risk None identified. Assessment: 02:04 General: Appears uncomfortable, Behavior is calm, cooperative. Pain: Complains of pain kd3 in left hip. Neuro: Level of Consciousness is awake, alert, obeys commands, Oriented to person, place, time. Cardiovascular: Patient's skin is warm and dry. Respiratory: Airway is patent Trachea midline Respiratory effort is even, unlabored, Respiratory pattern is regular, symmetrical. Vital Signs: 01:23 BP 123 / 60; Pulse 72; Resp 18 S; Temp 98(O); Pulse Ox 93% on R/A; Weight 104.33 kg bb (R); Height 5 ft. 5 in. (165.10 cm) (R); Pain 8/10; 01:23 Body Mass Index 38.27 (104.33 kg, 165.10 cm) ED Course: 01:04 Patient arrived in ED. bp1 01:18 Maty Mason, RN is Primary Nurse. kd3 01:20 Ramiro Falk MD is Attending Physician. sp3 01:27 Triage completed. bb 01:27 Arm band placed on Patient placed in an exam room, on a stretcher, on pulse oximetry. bb Family accompanied patient. 01:48 Lumbar Spine (3 Views) XRAY In Process Unspecified. EDMS 02:05 Patient has correct armband on for positive identification. kd3 02:20 No provider procedures requiring assistance completed. Patient did not have IV access kd3 during this emergency room visit. Administered Medications: 02:04 Drug: Ketorolac 60 mg Route: IM; Site: right vastus lateralis; kd3 02:20 Follow up: Response: Pain is decreased kd3 Medication: 02:05 VIS not applicable for this client. kd3 Outcome: 02:14 Discharge ordered by . sp3 02:20 Discharged to home ambulatory. kd3 02:20 Condition: stable 02:20 Discharge instructions given to patient, family, Instructed on discharge instructions, follow up and referral plans. Demonstrated understanding of instructions, follow-up care, medications, Prescriptions given X 1. 02:21 Patient left the ED. kd3 Signatures: Dispatcher [employer] EDCT Carmen Zheng, RN RN bb Karen Gray bp1 Ramiro Falk MD MD sp3 Maty Mason, RN RN kd3
[2022-09-06 02:40] VITALS: BP 123/60; TEMP 98; O2SAT 93
--- NOTE | 2022-09-06 13:01 | RAD REPORT ---
EXAM DESCRIPTION: RAD - Lumbar Spine 3 Views - 09/06/2022 1:46 am CLINICAL HISTORY: 41 years, Female, RADICULOPATHY COMPARISON: None FINDINGS: Three X-ray views of the Lumbar spine (frontal, lateral and coned-down views) were perform ed. There is normal anatomic alignment of the lumbar vertebral bodies. There is minimal anterior spondylo sis at L3 and L4 There is preservation of the interbody disc heights and the vertebral body heights. The adjacent soft tissues are unremarkable. There is no evidence for fracture or subluxation. T here is no evidence for spondylolysis. Minimal posterior facet hypertrophy at L5/S1. IMPRESSION: Minimal posterior facet hypertrophy at L5/S1. No evidence for acute bony injuries. Electronically signed by: Romeo Pinedo MD 09/06/2022 2:02 AM NAVAL ENGINEER Due to temporary technical issues with the PACS/Fluency reporting system, reports are being signed by the in house radiologists without review as a courtesy to insure prompt reporting. The interpreting radiologist is fully responsible for the content of the report.
== END 2022-09-06 02:21 | disposition home or self-care (01) ==
LOC: ER 01:01
DX: M54.16 Radiculopathy, lumbar region (principal); J45.909 Unspecified asthma, uncomplicated
CPT/HCPCS: 72100; 81003; 96372; 99284

== ENCOUNTER 2022-11-14 09:28 | Emergency (ER) | payer BC ==
--- OUTSIDE RECORDS SUMMARY | 2022-11-14 09:33 | XMS REPORT | Continuity of Care Document ---
:1980 Author Organization [facility] t Address [address] [place] [address] Care Team Providers Name Role Phone Asked, [...] No QD Inhale 1 M ethodi furoate-daphne 07-16-18 inhalation s t anteroL 00:00: 04:59 s once Hosp[facility] (BREO 00 :00 daily for l ELLIPTA) 30 days. 100-25 mcg/dose blister with device powder for inhalation famotidine 2020- No 20mg Q.5D Take 1 Meth apple (PEPCID) 20 9-17 10-18 tablet (20 s t MG tablet 00:00: 04:59 mg total) Ho spita 00 :00 by mouth 2 l (two) times a day for 30 days. apixaban 2.5mg Q.5D Take 1 Metho di (ELIQUIS) 07-[address] 2.5 mg 00:00: 04:59 (2.5 mg Hospita tablet 00 :00 total) by l mouth 2 (two) times a day for 14 days. predniSONE Take 2 Meth apple (DELTASONE) 07-[address] 20 mg [...] Systolic blood 2021-07-16 21:35:55 117 mm[Hg] [facility] pressure Diastolic blood 2021-07-16 21:35:55 74 mm[Hg] [facility] pressure Heart rate 2021-07-16 21:35:55 104 /min [facility] Body temperature 2021-07-16 21:35:55 35.83 [facility] Respiratory rate 2021-07-16 21:35:55 20 /min [facility] Oxygen saturation in 2021-07-16 21:35:55 97 /min [facility] Arterial blood by Pulse oximetry Body height 2021-07-08 02:22:00 165.1 cm [facility] Body weight 2021-07-08 02:22:00 111.131 kg [facility] BMI 2021-07-08 02:22:00 40.77 kg/m2 [facility] Procedures Procedure Date / Time Performing Clinician Source Performed DURABLE MEDICAL EQUIPMENT 2021-07-16 16:49:23 Es Hooker [facility] C-REACTIVE PROTEIN 2021-07-16 09:19:00 Flakita Lala [facility] D-DIMER 2021-07-16 09:19:00 Lock, Flakita [facility] XR CHEST 1 VW PORTABLE 2021-07-15 17:21:00 MorroEs boothe [facility] C-REACTIVE PROTEIN 2021-07-15 10:39:00 Lock, [facility] [place] D-DIMER 2021-07-15 10:39:00 Lock, [facility] BASIC METABOLIC PANEL 2021-07-14 10:53:00 Lock, [facility] HC COMPLETE BLD COUNT 2021-07-14 10:53:00 Lock, [facility] W/AUTO DIFF C-REACTIVE PROTEIN 2021-07-14 10:53:00 Lock, [facility] [place] D-DIMER 2021-07-14 10:53:00 Lock, [facility] ESTIMATED GFR 2021-07-14 10:53:00 Spike, [facility] POC GLUCOSE 2021-07-14 02:20:00 [facility] C-REACTIVE PROTEIN 2021-07-13 10:48:00 [facility] FERRITIN LEVEL 2021-07-13 10:48:00 Sae Francis [facility] LDH 2021-07-13 10:48:00 Sae [facility] D-DIMER 2021-07-13 10:48:00 Sae Francis [facility] BASIC METABOLIC PANEL 2021-07-13 10:48:00 Spike, [facility] HC COMPLETE BLD COUNT 2021-07-13 10:48:00 Spike, [facility] W/AUTO DIFF ESTIMATED GFR 2021-07-13 10:48:00 Spike, [facility] C-REACTIVE PROTEIN 2021-07-12 09:43:00 [facility] FERRITIN LEVEL 2021-07-12 09:43:00 Sae Francis [facility] LDH 2021-07-12 09:43:00 [facility] D-DIMER 2021-07-12 09:43:00 [facility]ae [facility] BASIC METABOLIC PANEL 2021-07-12 09:43:00 Spike [facility] HC COMPLETE BLD COUNT 2021-07-12 09:43:00 Spike [facility] W/AUTO DIFF ESTIMATED GFR 2021-07-12 09:43:00 Spike [facility] COMPREHENSIVE METABOLIC 2021-07-11 10:04:00 Sae Francis [facility] PANEL HC COMPLETE BLD COUNT 2021-07-11 10:04:00 [facility] C-REACTIVE PROTEIN 2021-07-11 10:04:00 Sae Francis [facility] FERRITIN LEVEL 2021-07-11 10:04:00 Sae Francis spital LDH 2021-07-11 10:04:00 [facility] D-DIMER 2021-07-11 10:04:00 Sae Francis [facility] ESTIMATED GFR 2021-07-11 10:04:00 Sae [facility] D-DIMER 2021-07-10 09:50:00 Sae Francis [facility] HC COMPLETE BLD COUNT 2021-07-10 09:50:00 Christian [facility] W/AUTO DIFF INTERLEUKIN 6 2021-07-10 08:35:00 Elio Gallo ospital CBC WITH PLATELET AND 2021-07-10 08:35:00 [facility]ENSIVE METABOLIC 2021-07-10 08:35:00 Elio Gallo [facility] PANEL TROPONIN 2021-07-10 08:35:00 Elio Gallo ospital D-DIMER 2021-07-10 08:35:00 Elio Gallo [facility] C-REACTIVE PROTEIN 2021-07-10 08:35:00 [facility] 2021-07-10 08:35:00 Elio Gallo [facility] FERRITIN LEVEL 2021-07-10 08:35:00 Elio Gallo [facility]ital ESTIMATED GFR 2021-07-10 08:35:00 Elio Gallo ospital INTERLEUKIN 6 2021-07-09 08:27:00 Elio Gallo ospital HC COMPLETE BLD COUNT 2021-07-09 08:27:00 Amber [facility]/AUTO DIFF COMPREHENSIVE METABOLIC 2021-07-09 08:27:00 Amber [facility] PANEL TROPONIN 2021-07-09 08:27:00 Elio Gallopital D-DIMER 2021-07-09 08:27:00 Elio Gallo ospital C-REACTIVE PROTEIN 2021-07-09 08:27:[address] [facility] LDH 2021-07-09 08:27:00 Elio Gallo ospital FERRITIN LEVEL 2021-07-09 08:27:00 Elio Gallopital ESTIMATED GFR 2021-07-09 08:27:00 Elio Gallo ospital ECG 12-LEAD 2021-07-09 00:13:21 Elio Gallo ospital INTERLEUKIN 6 2021-07-08 09:24:00 Elio Gallo ospital HC COMPLETE BLD COUNT 2021-07-08 09:24:00 Amber [facility]/AUTO DIFF COMPREHENSIVE METABOLIC 2021-07-08 09:24:00 Amber [facility] PANEL TROPONIN 2021-07-08 09:24:00 Elio Gallo ospital D-DIMER 2021-07-08 09:24:00 Elio Gallo [facility]ital C-REACTIVE PROTEIN 2021-07-08 09:24:[address] [facility] LDH 2021-07-08 09:24:00 Elio Gallo o[facility]ital FERRITIN LEVEL 2021-07-08 09:24:00 Elio Gallo o[facility]ital TYPE AND SCREEN 2021-07-08 09:24:00 Amber [facility]ital HEMOGLOBIN A1C 2021-07-08 09:24:00 Amber [facility]ital PROCALCITONIN 2021-07-08 09:24:00 [facility] ESTIMATED GFR 2021-07-08 09:24:00 Amber [facility]ital LACTIC ACID LEVEL 2021-07-08 09:24:00 [facility] CREATINE KINASE, TOTAL 2021-07-08 09:24:00 [facility] ([facility]) CT ANGIOGRAM PE CHEST 2021-07-08 07:37:03 [facility] URINE CULTURE 2021-07-08 07:26:00 Elio Gall[facility]INALYS[facility] SCREEN AND 2021-07-08 07:06:00 [facility] MICROSCOPY, WITH REFLEX TO CULTURE [facility]A URINARY 2021-07-08 [facility]REPT[facility]OCCUS PNEUMONIAE 2021-07-08 07:05:00 [facility] URINARY ANTIGEN RESPIRATORY PATHOGEN 2021-07-08 04:46:00 Tevin [facility] PANEL WITH COVID-19 RT-PCR BLOOD CULTURE, AEROBIC & 2021-07-08 04:38:00 Tevin [facility] ANAEROBIC COMPREHENSIVE METABOLIC 2021-07-08 04:27:00 Tevin [facility] PANEL PHOSPHORUS LEVEL 2021-07-08 04:27:[address] [facility] MAGNESIUM LEVEL 2021-07-08 04:27:[address] [facility] LACTIC ACID LEVEL, SEPSIS 2021-07-08 04:27:[address] [facility] - NOW AND REPEAT 2X EVERY 3 HOURS HC COMPLETE BLD COUNT 2021-07-08 04:27:00 Tevin [facility] W/AUTO DIFF PROTHROMBIN TIME WITH INR 2021-07-08 04:27:[address] [facility] PARTIAL THROMBOPLASTIN 2021-07-08 04:27:00 Mehdi Abarca [facility] TIME (PTT) HCG QUALITATIVE, SERUM 2021-07-08 04:27:00 Mehdi Abarca [facility] SCREEN TROPONIN 2021-07-08 04:27:[address] [facility] B NATRIURETIC PEPTIDE 2021-07-08 04:27:00 Mehdi Abarca [facility] ESTIMATED GFR 2021-07-08 04:27:00 [facility] 1 VW PORTABLE 2021-07-08 04:23:00 Mehdi Abarca [facility] NE CRITICAL CARE, E/M 2021-07-08 03:57:09 Tevin [facility] 30-74 MINUTES ECG ED PRELIMINARY 2021-07-08 03:57:09 Tevin [facility] INTERPRETATION ECG 12-LEAD 2021-07-08 03:42:[address] [facility] Plan of Care Planned Activity Planned Date Details Comments Source Future Scheduled 2022-10-24 Hepatitis C [facility] ospital Test 23:07:02 screening (procedure) [code = 748898240] Future Scheduled 2022-10-24 Screening for [facility] Test 23:07:02 malignant neoplasm of cervix (procedure) [code = 290672962] Future Scheduled 2022-10-24 BREAST CANCER [facility] Test 23:07:02 SCREENING [code = BREAST CANCER SCREENING] Future Scheduled 2022-10-24 INFLUENZA VACCINE [facility] Test 23:07:02 [code = INFLUENZA VACCINE] Future Scheduled 2022-10-24 COVID-19 VACCINE [facility] Test 23:07:02 (#1) [code = COVID-19 VACCINE (#1)] Future Scheduled 2022-09-06 HEPATITIS B [facility] ospital Test 01:03:37 VACCINES (1 of 3 - 3-dose series) [code = HEPATITIS B VACCINES (1 of 3 - 3-dose series)] Future Scheduled 2022-09-06 COVID-19 VACCINE [facility] Test 01:03:37 (#1) [code = COVID-19 VACCINE (#1)] Future Scheduled 2022-09-06 [facility] Test 01:03:37 screening (procedure) [code = 681957039] Future Scheduled 2022-09-06 Screening for [facility] Test 01:03:37 malignant neoplasm of cervix (procedure) [code = 888269037] Future Scheduled 2022-09-06 [facility] Test 01:03:37 SCREENING [code = BREAST CANCER SCREENING] Future Scheduled 2022-09-06 [facility] 01:03:37 [code = INFLUENZA VACCINE] Future Scheduled 2021-11-30 [facility] 17:13:06 (1) [code = COVID-19 VACCINE (1)] Future Scheduled 2021-11-30 [facility] Test 17:13:06 screening (procedure) [code = 827183570] Future Scheduled 2021-11-30 Screening for [facility] Test 17:13:06 malignant neoplasm of cervix (procedure) [code = 541083494] Future Scheduled 2021-11-30 INFLUENZA VACCINE [facility] Test 17:13:06 [code = INFLUENZA VACCINE] Encounters Start End Encounter Admission Attending Care Care Encounter Source Date/Time Date/Time Type Type Clinicians Facility Department ID 2021-07-07 2021-07-[id number] [place] 00:00:00 00:00:00 Encounter SAE [id number] Results Test Description Test Time Test Comments Results Result Comments Source Donaldo Lopez + 1 more item 2021-07-17 00:13:15 Test Item Value Reference Range Interpretation Comme [facility] SUPPLIER NAME (test code = 6415) [facility] SUPPLIER PHONE (test code = 6416) [phone] ORDER STATUS (test code = 6417) Delivery Successful DELIVERY NOTE (test code = 6419) REQUESTED DELIVEY DATE (test code = 6420) 07/16/2021 ITEM DESCRIPTION (test code = 6423) Donaldo Lopez, Adult Qty: 1 EXPECTED DELIVERY DATE (test code = 6421) 07/16/2021 ACTUAL DELIVERY DATE (test code = 6422) 07/16/2021 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 Interpretation (test Abnormal code = 78152-1) [facility] 12 [id number] 23:34:12 Test Item Value Reference Range Interpretation [...] out Inferior infarct (cited on or before 07-JUL-2021)-Electroni peewee Signed By Ashley Brandt ([id number]) on 07/10/2021 6:34:10 [facility] [id number] 10:46:00 Test Item Value Reference Range Interpretation Comments ABO grouping (test code = 883-9) A Rh type (test code = 62265-5) POS Antibody screen (gel) (test code = NEG 890-4) [facility] [id number] 07:54:00 Test Item Value Reference Range Interpretation Comments Urine culture (test SEE COMMENT Bacteriu gwen screen code = 9596066) negative. [facility] ED Preliminary Interpretation - Not an [id number] 03:57:09 Test Item Value Reference Range Interpretation Comments CRZU (test code = CRUZ) Mehdi Abarca MD 07/08/2021 1:28 [facility] ED Preliminary Interpretation - Not an OrderPerformed by: Mehdi Abarca, MDAuthorized by: Mehdi Abarca MD ECG reviewed by ED Physician in the absence of a metal mixer: yes Interpretation: Interpretation: abnormal Rate: ECG rate: 107 ECG rate assessment: tachycardic Rhythm: Rhythm: sinus rhythm QRS: QRS axis: Normal QRS intervals: NormalConduction: Conduction: normal ST segments: ST segments: NormalT waves: T waves: inverted Inverted: III and V1 Lab Interpretation Abnormal (test code = 65904-4) [facility]
[2022-11-14] MEDS ORDERED: ASPIRIN 81 MG CHEWABLE TABLET ONE (09:51)
[2022-11-14 10:09] LABS: Absolute Lymphocytes (CBC) 1.5 K/uL (0.7-4.9); Hematocrit 40.3 % (36.0-45.0); Lymphocytes % 22.1 % (15.3-44.8); MCV 84.8 fL (80-100); MPV 8.2 fL (7.6-11.3); RBC Red Blood Cell Count 4.75 M/uL (3.86-4.86)
--- NOTE | 2022-11-14 10:15 | RAD REPORT ---
EXAM DESCRIPTION: RAD - Chest Single View - 11/14/2022 10:10 am CLINICAL HISTORY: CHEST PAIN COMPARISON: Chest Single View dated 02/26/2022; Chest Single View dated 07/28/2018; Chest Single View dated 07/22/2018; Chest Pa And Lat (2 Views) dated 07/17/2018; Chest Pa And Lat (2 Views) dated 05/26/20 17 FINDINGS: Lines: None. Lungs: No evidence of edema or pneumonia. Pleural: No significant pleural effusions or pneumothorax. Cardiac: The heart size is within normal limits. Mediastinum: Within normal limits. Bones: No acute fractures. Other: None IMPRESSION: No acute cardiopulmonary disease.
[2022-11-14 10:37] LABS: Albumin 3.5 g/dL (3.4-5.0); Bilirubin Direct 0.2 mg/dL (0-0.2); Bilirubin Total 0.7 mg/dL (0.2-1.0); Magnesium 2.1 mg/dL (1.6-2.4); Potassium 3.4 mmol/L (3.5-5.1); Protein, Total 7.6 g/dL (6.4-8.2); Troponin High Sensitivity 5.7 pg/mL (<58.9)
--- NOTE | 2022-11-14 11:20 | RAD REPORT ---
EXAM DESCRIPTION: CT - Chest For Pe Angio - 11/14/2022 10:49 am CLINICAL HISTORY: r/o PE chest thightness and left arm "sleepiness" since hx asthma COMPARISON: Chest For Pe Angio dated 05/26/2017; CTANGIO CHEST FOR PE dated 04/08/2015 TECHNIQUE: Dynamically enhanced axial 3 mm thick images of the chest were obtained during administra tion of <100> mL Isovue 370 IV contrast. Coronal and oblique reconstruction images were generated and reviewed. Exam utilizes a protocol for optimal evaluation of pulmonary arterial tree. Maximum intensity projections 3D imaging was utilized All CT scans are performed using dose optimization technique as appropriate and may include automated exposure control or mA/KV adjustment according to patient size. FINDINGS: Chest Wall: No suspicious thyroid nodules or pathologic lymphadenopathy. Lungs: No acute abnormality. Pleura: No significant effusions or pneumothorax. Mediastinum/claudy: No pathologic lymphadenopathy. Pulmonary arteries/Aorta: No filling defect identified. No aortic aneurysm. Heart: No significant pericardial effusion. Normal heart size. Upper abdomen: No acute abnormality.Hepatic steatosis. Cholelithiasis. Bones: No acute abnormality. IMPRESSION: Negative for pulmonary embolism. No acute findings in the chest.
--- NOTE | 2022-11-14 11:31 | EDPHYS ---
Physician Documentation [facility] Name: Jessica Brannon Age: 42 yrs Sex: Female : 1980 Arrival Date: 11/14/2022 Time: 09:31 Bed 20 Private MD: ED Physician Seven Buchanan HPI: 11/14 09:35 This 42 yrs old Female presents to ER via Unassigned with complaints of Chest jh7 Pain, Numbness Of Arm. 09:35 Onset: The symptoms/episode began/occurred 4 day(s) ago, and became worse this morning. jh7 Associated signs and symptoms: Pertinent positives: chest pain, shortness of breath, Pertinent negatives: congestion, constipation, cough, fever, headache, sore throat, vomiting. 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 - Social history:: Smoking status: Patient denies any tobacco usage or history of. ROS: 09:35 Constitutional: Negative for fever, chills, and weight loss, ENT: Negative for injury, jh7 pain, and discharge, Neck: Negative for injury, pain, and swelling, Abdomen/GI: Negative for abdominal pain, nausea, vomiting, diarrhea, and constipation, Back: Negative for injury and pain, MS/Extremity: Negative for injury and deformity, Skin: Negative for injury, rash, and discoloration. 09:35 Cardiovascular: Positive for chest pain, Negative for orthopnea, palpitations. 09:35 Respiratory: Positive for shortness of breath, Negative for cough, wheezing. 09:35 Neuro: Positive for numbness, Negative for altered mental status, dizziness, gait disturbance, headache, loss of consciousness, syncope, tingling, visual changes, weakness. 09:35 All other systems are negative. Exam: 09:35 Constitutional: This is a well developed, well nourished patient who is awake, alert, jh7 and in no acute distress. Head/Face: Normocephalic, atraumatic. ENT: Nares patent. No nasal discharge, no septal abnormalities noted. Oropharynx with no redness, swelling, or masses, exudates, or evidence of obstruction, uvula midline. Mucous membranes moist. Neck: Trachea midline, no thyromegaly or masses palpated, and no cervical lymphadenopathy. Supple, full range of motion without nuchal rigidity, or vertebral point tenderness. No Meningismus. Cardiovascular: Regular rate and rhythm with a normal S1 and S2. No gallops, murmurs, or rubs. Normal PMI, no JVD. No pulse deficits. Respiratory: Lungs have equal breath sounds bilaterally, clear to auscultation and percussion. No rales, rhonchi or wheezes noted. No increased work of breathing, no retractions or nasal flaring. Abdomen/GI: Soft, non-tender, with normal bowel sounds. No distension or tympany. No guarding or rebound. No evidence of tenderness throughout. Skin: Warm, dry with normal turgor. Normal color with no rashes, no lesions, and no evidence of cellulitis. MS/ Extremity: Pulses equal, no cyanosis. Neurovascular intact. Full, normal range of motion. Neuro: Awake and alert, GCS 15, oriented to person, place, time, and situation. Cranial nerves II-XII grossly intact. Motor strength 5/5 in all extremities. Sensory grossly intact. Cerebellar exam normal. Normal gait. Vital Signs: 09:39 BP 146 / 98; Pulse 81; Resp 18; Temp 98.6; Pulse Ox 99% ; Weight 107.95 kg; Height 5 5 ft. 5 in. (165.10 cm); Pain 6/10; 09:45 BP 137 / 84; Pulse 82; Resp 18; Pulse Ox 97% on R/A; db 10:30 BP 136 / 74; Pulse 73; Resp 18; Pulse Ox 96% on R/A; db 11:23 BP 144 / 72; Pulse 68; Resp 18; Pulse Ox 100% on R/A; db 09:39 Body Mass Index 39.60 (107.95 kg, 165.10 cm) 5 NIH Stroke Scale Scores: 09:35 NIHSS Score: 0 7 [place] Coma Score: 09:45 Eye Response: spontaneous(4). Verbal Response: oriented(5). Motor Response: obeys db commands(6). Total: 15. MDM: 09:32 Patient medically screened. [facility] 11:32 Differential diagnosis: pneumonia Acute [place], spontaneous pneumothorax, pulmonary jh7 embolism, asthma exacerbation. Data reviewed: vital signs, nurses notes, lab test result(s), EKG, radiologic studies, CT scan, plain films. Consideration of Admission/Observation Escalation of care including admission/observation considered. No acute findings on lab work, negative chest x-ray and CTA, patient's pain resolved.. I considered the following discharge prescriptions or medication management in the emergency department Medications were administered in the Emergency Department. See MAR. Independent interpretation of the following test(s) in the Emergency Department EKG: See my EKG interpretation above X-Ray: My interpretation is No acute findings. Historians other than the Patient: Spouse/Significant Other: . Care significantly affected by the following chronic conditions: Obesity. Counseling: I had a detailed discussion with the patient and/or guardian regarding: the historical points, exam findings, and any diagnostic results supporting the discharge/admit diagnosis, the need for outpatient follow up, a signal timer, to return to the emergency department if symptoms worsen or persist or if there are any questions or concerns that arise at home. 11/14 09:42 Order name: Basic Metabolic Panel; Complete Time: 10:40 11/14 09:42 Order name: CBC with Diff; Complete Time: :11/14 09:42 Order name: D-Dimer; Complete Time: 10:36 11/14 09:42 Order name: LFT's; Complete Time: 10:40 11/14 09:42 Order name: Magnesium; Complete Time: 10:40 11/14 09:42 Order name: NT PRO-BNP; Complete Time: 10:40 11/14 09:42 Order name: Troponin HS; Complete Time: 10:40 11/14 09:42 Order name: XRAY Chest (1 view); Complete Time: :16 11/14 09:42 Order name: Cardiac monitoring; Complete Time: 09:49 11/14 09:42 Order name: EKG - Nurse/Tech; Complete Time: :50 11/14 09:42 Order name: IV Saline Lock; Complete Time: :50 11/14 10:37 Order name: CT Chest For PE Angio; Complete Time: 11:21 11/14 09:42 Order name: Labs collected and sent; Complete Time: 09:50 [facility] 11/14 09:42 Order name: O2 Per Protocol; Complete Time: 50 [facility] 11/14 09:42 Order name: O2 Sat Monitoring; Complete Time: 7 EC:47 Rate is 71 beats/min. Rhythm is regular. QRS [place] is Normal. MA interval is normal at [facility] 140 msec. QRS interval is normal at 88 msec. QT interval is normal at 428 msec. No Q waves. T waves are Normal. No ST changes noted. Clinical impression: Normal ECG. Administered Medications: :50 Drug: Aspirin Chewable Tablet 324 mg Route: PO; db 09:56 Follow up: Response: No adverse reaction db Disposition: 16:17 Co-signature as Attending Physician, Seven Buchanan MD I reviewed the patient's care rt provided by the Advanced Practice Provider and agree with the diagnosis and treatment plan. Disposition Summary: 11/14/22 11:30 Discharge Ordered Location: Home [facility] Problem: new [facility] Symptoms: are resolved [facility] Condition: Stable [facility] Diagnosis - Chest pain, unspecified [facility] Followup: [facility] - With: Private Physician - When: 2 - 3 days - Reason: Recheck today's complaints Discharge Instructions: - Discharge Summary Sheet [facility] - Nonspecific Chest Pain, Adult [facility] - Chest Wall Pain [facility] - Electrocardiogram [facility] - Exercise Stress Test [facility] Forms: - Medication Reconciliation Form [facility] - Thank You Letter [facility] NIH Stroke Scale - NIH Stroke Score Date: 11/14/2022 Time: 09:35 Total Score = 0 1a. Level of Consciousness (LOC) - 0(Alert) 1b. Level of Consciousness (LOC) (Month \T\ Age) - 0(Both) 1c. LOC Commands (Open \T\ Closes Eyes/Emergency Medical Technician/Driver) - 0(Both) 2. Best Gaze (Lateral Gaze Paresis) - 0(Normal) 3. Visual Field Loss - 0(No visual loss) 4. Facial Palsy - 0(Normal) 5a. Left Arm: Motor (10-second hold) - 0(No drift) 5b. Right Arm: Motor (10-second hold) - 0(No drift) 6a. Left Leg: Motor (5-second hold - always test supine) - 0(No drift) 6b. Right Leg: Motor (5-second hold - always test supine) - 0(No drift) 7. Limb Ataxia (finger/nose \T\ heel/finnegan - test with eyes open) - 0(Absent) 8. Sensory Loss (pinprick arms/legs/face) - 0(Normal) 9. Best Language: Aphasia (description/naming/reading) - 0(No aphasia) 10. Dysarthria (speech clarity - read or repeat words) - 0(Normal) 11. Extinction and Inattention (visual/tactile/auditory/spatial/personal) - 0(No abnormality) Initials: 7 Signatures: Dispatcher [employer] Rosa Jara, RN RN jh5 Krista Dozier, HUMAN RESOURCES SUPPORT SPECIALIST HUMAN RESOURCES SUPPORT SPECIALIST jh7 Daphnie Michelle, RN RN db Seven Buchanan MD MD rt
--- NOTE | 2022-11-14 11:31 | ER ---
Nurse's Notes [facility] Name: Jessica Brannon Age: 42 yrs Sex: Female : 1980 Arrival Date: 11/14/2022 Time: 09:31 Bed 20 Private MD: Diagnosis: Chest pain, unspecified Presentation: 11/14 09:39 Chief complaint: Patient states: I started having chest tightness and left arm jh5 sleepiness. Coronavirus screen: Vaccine status: Patient reports being unvaccinated. Client denies travel out of the [place] in the last 14 days. Ebola Screen: Patient negative for fever greater than or equal to 101.5 degrees Fahrenheit, and additional compatible Ebola Virus Disease symptoms Patient denies exposure to infectious person. Patient denies travel to an Ebola-affected area in the 21 days before illness onset. Initial Sepsis Screen: Does the patient meet any 2 criteria? No. Patient's initial sepsis screen is negative. Does the patient have a suspected source of infection? No. Patient's initial sepsis screen is negative. Risk Assessment: Do you want to hurt yourself or someone else? Patient reports no desire to harm self or others. Onset of symptoms was November 10, 2022. 09:39 Method Of Arrival: Ambulatory [facility] emergency [facility] 09:39 Acuity: JACINTA 3 5 Triage Assessment: 09:45 General: Appears in no apparent distress. obese, well groomed, well developed, Behavior 5 is calm, cooperative, appropriate for age. Pain: Complains of pain in chest. Cardiovascular: Reports chest pain. 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 emergency [facility] Historical: - Allergies: 09:45 NKDA; 5 - PMHx: 09:45 Asthma; [facility] emergency [facility] - PSHx: 09:45 Appendectomy; [facility] - Immunization history:: Adult Immunizations up to date. - Social history:: Smoking status: Patient denies any tobacco usage or history of. Screenin:57 [facility] ED Fall Risk Assessment (Adult) History of falling in the last 3 months, db including since admission No falls in past 3 months (0 pts) Confusion or Disorientation No (0 pts) Intoxicated or Sedated No (0 pts) Impaired Gait No (0 pts) Mobility Assist Device Used No (0 pt) Altered Elimination No (0 pt) Score/Fall Risk Level 0 - 2 = Low Risk Oriented to surroundings, Maintained a safe environment, Educated pt \T\ family on fall prevention, incl call for assistance when getting out of bed. Abuse screen: Denies threats or abuse. Denies injuries from another. Nutritional screening: No deficits noted. Tuberculosis screening: No symptoms or risk factors identified. Assessment: 09:55 Reassessment: Patient appears in no apparent distress at this time. Patient and/or db family updated on plan of care and expected duration. Pain level reassessed. Patient is alert, oriented x 3, equal unlabored respirations, skin warm/dry/pink. middle chest pain. General: Appears in no apparent distress. comfortable, Behavior is calm, cooperative, appropriate for age. Pain: Complains of pain in chest Pain does not radiate. Pain began gradually. Neuro: No deficits noted. Level of Consciousness is awake, alert, obeys commands, Oriented to person, place, time, situation. Cardiovascular: Reports chest pain, Capillary refill < 3 seconds. Respiratory: Airway is patent Respiratory effort is even, unlabored, Respiratory pattern is regular, symmetrical. GI: No deficits noted. No signs and/or symptoms were reported involving the gastrointestinal system. : No deficits noted. No signs and/or symptoms were reported regarding the genitourinary system. 10:45 Reassessment: Patient appears in no apparent distress at this time. Patient and/or db family updated on plan of care and expected duration. Pain level reassessed. Patient is alert, oriented x 3, equal unlabored respirations, skin warm/dry/pink. PATIENT TO CT. 11:07 Reassessment: Patient appears in no apparent distress at this time. Patient and/or db family updated on plan of care and expected duration. Pain level reassessed. Patient is alert, oriented x 3, equal unlabored respirations, skin warm/dry/pink. PATIENT RESTING. FAMILY AT BEDSIDE. 11:20 Reassessment: Patient appears in no apparent distress at this time. Patient and/or db family updated on plan of care and expected duration. Pain level reassessed. Patient is alert, oriented x 3, equal unlabored respirations, skin warm/dry/pink. PATIENT AMBULATORY AROUND ER PER PROVIDER REQUEST. PATIENT DENIES CHEST PAIN WITH AMBULATION. IN NAD. STEADY GATE NOTED. NOTIFIED PROVIDER HADASH. Vital Signs: 09:39 BP 146 / 98; Pulse 81; Resp 18; Temp 98.6; Pulse Ox 99% ; Weight 107.95 kg; Height 5 jh5 ft. 5 in. (165.10 cm); Pain 6/10; 09:45 BP 137 / 84; Pulse 82; Resp 18; Pulse Ox 97% on R/A; db 10:30 BP 136 / 74; Pulse 73; Resp 18; Pulse Ox 96% on R/A; db 11:23 BP 144 / 72; Pulse 68; Resp 18; Pulse Ox 100% on R/A; db 09:39 Body Mass Index 39.60 (107.95 kg, 165.10 cm) jh5 Vitals: 09:45 Cardiac Rhythm Assessment Regular Sinus rhythm. db [place] Coma Score: 09:45 Eye Response: spontaneous(4). Verbal Response: oriented(5). Motor Response: obeys db commands(6). Total: 15. NIH Stroke Scale Scores: 09:35 NIHSS Score: 0 7 ED Course: 09:31 Patient arrived in ED. mr 09:32 [facility] Dozier FNP [facility] jh7 09:32 Seven Buchanan MD is Attending Physician. jh7 09:38 Daphnie Michelle, RN is Primary Nurse. db 09:45 Triage completed. jh5 09:45 Arm band placed on right wrist. jh5 09:53 Inserted saline lock: 22 gauge in right antecubital area, using aseptic technique. db Blood collected. Patient maintains SpO2 saturation greater than 95% on room air. 09:59 Patient has correct armband on for positive identification. Bed in low position. Call db light in reach. Side rails up X2. Client placed on continuous cardiac and pulse oximetry monitoring. NIBP monitoring applied. Warm blanket given. 10:11 XRAY Chest (1 view) In Process Unspecified. EDMS 10:51 CT Chest For PE Angio In Process Unspecified. EDMS 11:38 No provider procedures requiring assistance completed. IV discontinued, intact, db bleeding controlled, No redness/swelling at site. Administered Medications: 09:50 Drug: Aspirin Chewable Tablet 324 mg Route: PO; db 09:56 Follow up: Response: No adverse reaction db Medication: 09:57 VIS not applicable for this client. db Outcome: 11:30 Discharge ordered by . jh7 11:38 Discharged to home ambulatory, with family. db 11:38 Condition: stable 11:38 Discharge instructions given to patient, Instructed on discharge instructions, follow up and referral plans. Demonstrated understanding of follow-up care. 11:40 Patient left the ED. NIH Stroke Scale - NIH Stroke Score Date: 11/14/2022 Time: 09:35 Total Score = 0 1a. Level of Consciousness (LOC) - 0(Alert) 1b. Level of Consciousness (LOC) (Month \T\ Age) - 0(Both) 1c. LOC Commands (Open \T\ Closes Eyes/[place]) - 0(Both) 2. Best Gaze (Lateral Gaze Paresis) - 0(Normal) 3. Visual Field Loss - 0(No visual loss) 4. Facial Palsy - 0(Normal) 5a. Left Arm: Motor (10-second hold) - 0(No drift) 5b. Right Arm: Motor (10-second hold) - 0(No drift) 6a. Left Leg: Motor (5-second hold - always test supine) - 0(No drift) 6b. Right Leg: Motor (5-second hold - always test supine) - 0(No drift) 7. Limb Ataxia (finger/nose \T\ heel/finnegan - test with eyes open) - 0(Absent) 8. Sensory Loss (pinprick arms/legs/face) - 0(Normal) 9. Best Language: Aphasia (description/naming/reading) - 0(No aphasia) 10. Dysarthria (speech clarity - read or repeat words) - 0(Normal) 11. Extinction and Inattention (visual/tactile/auditory/spatial/personal) - 0(No abnormality) Initials: 7 Signatures: Dispatcher [employer] Flores Dai DaveRosa, RN RN jh5 Krista Dozier, CLINICAL NURSING INTERN CLINICAL NURSING INTERN jh7 Daphnie Michelle, RN RN db
[2022-11-14 12:05] VITALS: TEMP 98.6
[2022-11-14 12:09] VITALS: BP 144/72; O2SAT 100
--- NOTE | 2022-11-15 15:04 | EKG ---
Test Date: 2022-11-14 Test Time: 09:43:24 Soap Drier Operator: JJ MEASUREMENT RESULTS: Intervals: Rate: 71 NV: 140 QRSD: 88 QT: 428 QTc: 465 [place]: P: 28 NV: 140 QRS: 63 T: 44 INTERPRETIVE STATEMENTS: Normal sinus rhythm Normal ECG Compared to ECG 02/26/2022 21:12:40 No significant changes Electronically Signed On 11-15-22 15:03:03 HOTEL MAINTENANCE WORKER by Mina Dela Cruz
== END 2022-11-14 11:40 | disposition home or self-care (01) ==
LOC: ER 09:28
DX: R07.89 Other chest pain (principal); R20.0 Anesthesia of skin
CPT/HCPCS: 85025; 80048; 36415; 83735; 85379; 80076; 84484; 83880; 71275; 71045; Q9967; 93005; 99284

== ENCOUNTER 2023-06-01 15:50 | Emergency (ER) | payer BC, OTHER, SELFPAY ==
--- OUTSIDE RECORDS SUMMARY | 2023-06-01 15:53 | XMS REPORT | Continuity of Care Document ---
:1980 Author Organization [facility] t Address [address] [place] [address] Care Team Providers Name Role Phone Asked, No Pcp Primary Care Physician Unavailable SAE FRANCIS Attending Clinician Unavailable ELIO GALLO Admitting Clinician Unavailable Problems Condition Condition Condition Status Onset Resolution Last Treating Co mments Source Name Details Category Date Date Treatment Clinician Date COVID-19 COVID19 Disease Active Metho di 07-16 st [...] Start Date Stop Date Quantity Comments Source [facility] History of Social 2023-01-08 2023-01-[address] function 00:00:00 00:00:00 Hospital Tobacco use and 2021-07-08 2021-07-08 [facility]00[facility]00 tobacco non-user Hospital Sex Assigned At [birth year] [facility] Smoking Status Start Date Stop Date Source Never smoked tobacco [facility] Medications Ordered Filled Start Stop Current Ordering Indication Dosage Frequency Signature Comments Components Source Medication Medication Date Date Medication? Clinician (SIG) Name Name dexamethaso 2020- No 8mg QD Take 8 mg [facility] 9-17 09-[address] (DECADRON) 17:39: 00:00 daily. X Ho spita 4 MG tablet 40 :00 10 days, l started on 07/03/21 azithromyci 2020- No 500mg QD Take 500 [facility] n 07-16 09-[address] (ZITHROMAX) 17:39: 00:00 [...] 10mL Q4H Take 10 mL [facility] rphan-guaif 07-16 10-[address] enesin 00:00: 04:59 every 4 Hospita (ROBITUSSIN 00 :00 (four) l -DM) 10-100 hours as mg/5 mL needed for liquid cough for up to 30 days. fluticasone QD Inhale 1 M ethodi furoate-daphne 07-16 inhalation s t anteroL 00:00: 04:59 s once Hospita (BREO 00 :00 daily for l ELLIPTA) 30 days. 100-25 mcg/dose blister with device powder for inhalation famotidine No 20mg Q.5D Take 1 Meth apple [...] Source Systolic blood 2021-07-16 21:35:55 117 mm[Hg] [facility] pressure Diastolic blood 2021-07-16 21:35:55 74 mm[Hg] [facility] pressure Heart rate 2021-07-16 21:35:55 104 /min [facility] Body temperature 2021-07-16 21:35:55 35.83 [place] [facility] Respiratory rate 2021-07-16 21:35:55 20 /min [facility] Oxygen saturation in 2021-07-16 21:35:55 97 /min [facility] Arterial blood by Pulse oximetry Body height 2021-07-08 02:22:00 165.1 cm [facility] Body weight 2021-07-08 02:22:00 111.131 kg [facility] BMI 2021-07-08 02:22:00 40.77 kg/m2 [facility] Procedures Procedure Date / Time Performing Clinician Source Performed DURABLE MEDICAL EQUIPMENT 2021-07-16 16:49:23 [facility] C-REACTIVE PROTEIN 2021-07-16 09:19:00 Lock, [facility] D-DIMER 2021-07-16 09:19:00 Spike, [facility] XR CHEST 1 VW PORTABLE 2021-07-15 17:21:00 [facility]IN 2021-07-15 10:39:00 Lock, [facility] D-DIMER 2021-07-15 10:39:00 Lock, [facility] BASIC METABOLIC PANEL 2021-07-14 10:53:00 Lock, [facility] HC COMPLETE BLD COUNT 2021-07-14 10:53:00 Lock, [facility] W/AUTO DIFF C-REACTIVE PROTEIN 2021-07-14 10:53:00 Lock, [facility] D-DIMER 2021-07-14 10:53:00 Lock, [facility] ESTIMATED GFR 2021-07-14 10:53:00 Lock, [facility] POC GLUCOSE 2021-07-14 02:20:00 [facility] C-REACTIVE PROTEIN 2021-07-13 10:48:00 Sae Francis [facility] FERRITIN LEVEL 2021-07-13 10:48:00 Sae [facility] LDH 2021-07-13 10:48:00 Sae [facility] D-DIMER 2021-07-13 10:48:00 Sae Francis [facility] BASIC METABOLIC PANEL 2021-07-13 10:48:00 Spike, [facility] HC COMPLETE BLD COUNT 2021-07-13 10:48:00 Lock, [facility] W/AUTO DIFF ESTIMATED GFR 2021-07-13 10:48:00 Lock, [facility] C-REACTIVE PROTEIN 2021-07-12 09:43:00 [facility] FERRITIN LEVEL 2021-07-12 09:43:00 Sae [facility] LDH 2021-07-12 09:43:00 ChristianSae bassett [facility] D-DIMER 2021-07-12 09:43:00 ChristianSae zelaya spital BASIC METABOLIC PANEL 2021-07-12 09:43:00 Spike, [facility] HC COMPLETE BLD COUNT 2021-07-12 09:43:00 [facility] W/AUTO DIFF ESTIMATED GFR 2021-07-12 09:43:00 Spike [facility] COMPREHENSIVE METABOLIC 2021-07-11 10:04:00 Christian, [facility] PANEL HC COMPLETE BLD COUNT 2021-07-11 10:04:00 Christian, [facility] W/AUTO DIFF C-REACTIVE PROTEIN 2021-07-11 10:04:00 Christian, [facility] FERRITIN LEVEL 2021-07-11 10:04:00 Sae Francis [facility] LDH 2021-07-11 10:04:00 Sae Francis [facility] D-DIMER 2021-07-11 10:04:00 Sae Francis [facility]ital ESTIMATED GFR 2021-07-11 10:04:00 Sae Francis [facility] D-DIMER 2021-07-10 09:50:00 Sae Francis [facility] HC COMPLETE BLD COUNT 2021-07-10 09:50:00 Christian, [facility] W/AUTO DIFF INTERLEUKIN 6 2021-07-10 08:35:00 Elio Gallo ospital CBC WITH PLATELET AND 2021-07-10 08:35:00 Gallo, [facility] DIFFERENTIAL COMPREHENSIVE METABOLIC 2021-07-10 08:35:00 Elio Gallo [facility] PANEL TROPONIN 2021-07-10 08:35:00 Elio Gallo ospital D-DIMER 2021-07-10 08:35:00 Elio Gallo [facility] C-REACTIVE PROTEIN 2021-07-10 08:35:00 Amber [facility] LDH 2021-07-10 08:35:00 Elio Gallo ospital FERRITIN LEVEL 2021-07-10 08:35:00 Elio Gallo [facility]spital ESTIMATED GFR 2021-07-10 08:35:00 Elio Gallo [facility]ital INTERLEUKIN 6 2021-07-09 08:27:00 Elio Gallo [facility] HC COMPLETE BLD COUNT 2021-07-09 08:27:00 Amber [facility] W/AUTO DIFF COMPREHENSIVE METABOLIC 2021-07-09 08:27:00 Elio Gallo [facility] PANEL TROPONIN 2021-07-09 08:27:00 Elio Gallo [facility]ital D-DIMER 2021-07-09 08:27:00 Elio Gallo [facility] C-REACTIVE PROTEIN 2021-07-09 08:27:00 Amber [facility] LDH 2021-07-09 08:27:00 Elio Gallo ospital FERRITIN LEVEL 2021-07-09 08:27:00 Elio Gallo [facility] ESTIMATED GFR 2021-07-09 08:27:00 Elio Gallo o[facility]ital ECG 12-LEAD 2021-07-09 00:13:21 Elio Gallo [facility]ital INTERLEUKIN 6 2021-07-08 09:24:00 Elio Gallo [facility] HC COMPLETE BLD COUNT 2021-07-08 09:24:00 Amber [facility] W/AUTO DIFF COMPREHENSIVE METABOLIC 2021-07-08 09:24:00 Elio Gallo [facility] PANEL TROPONIN 2021-07-08 09:24:00 [facility] 2021-07-08 09:24:00 Amber [facility] ospital C-REACTIVE PROTEIN 2021-07-08 09:24:00 [facility] 2021-07-08 09:24:00 Amber [facility] ospital FERRITIN LEVEL 2021-07-08 09:24:00 Amber [facility] TYPE AND SCREEN 2021-07-08 09:24:00 Amber [facility] ospital HEMOGLOBIN A1C 2021-07-08 09:24:00 Amber [facility] PROCALCITONIN 2021-07-08 09:24:00 [facility] ESTIMATED GFR 2021-07-08 09:24:00 [facility] LACTIC ACID LEVEL 2021-07-08 09:24:00 [facility] CREATINE KINASE, TOTAL 2021-07-08 09:24:00 [facility] ANGIOGRAM PE CHEST 2021-07-08 07:37:03 [facility] URINE CULTURE 2021-07-08 07:26:00 Amber [facility] URINALYSIS SCREEN AND 2021-07-08 07:06:00 [facility] MICROSCOPY, WITH REFLEX TO CULTURE LEGIONELLA URINARY 2021-07-08 07:05:00 [facility] ANTIGEN STREPTOCOCCUS PNEUMONIAE 2021-07-08 07:05:00 [facility] URINARY ANTIGEN RESPIRATORY PATHOGEN 2021-07-08 04:46:00 Tevin [facility] PANEL WITH COVID-19 RT-PCR BLOOD CULTURE, AEROBIC & 2021-07-08 04:38:00 Mehdi Abarca [facility] ANAEROBIC COMPREHENSIVE METABOLIC 2021-07-08 04:27:00 [facility] PHOSPHORUS LEVEL 2021-07-08 04:27:00 Tevin [facility] MAGNESIUM LEVEL 2021-07-08 04:27:00 Tevin, [facility] LACTIC ACID LEVEL, SEPSIS 2021-07-08 04:27:00 Tevin, [facility] NOW AND REPEAT 2X EVERY 3 HOURS HC COMPLETE BLD COUNT 2021-07-08 04:27:00 [facility] DIFF PROTHROMBIN TIME WITH INR 2021-07-08 04:27:00 Tevin, [facility] PARTIAL THROMBOPLASTIN 2021-07-08 04:27:00 Mehdi Abarca [facility] TIME (PTT) HCG QUALITATIVE, SERUM 2021-07-08 04:27:00 Mehdi Abarca [facility] SCREEN TROPONIN 2021-07-08 04:27:00 Tevin, [facility] B NATRIURETIC PEPTIDE 2021-07-08 04:27:00 Tevin, [facility] ESTIMATED GFR 2021-07-08 04:27:00 Tevin, [facility] XR CHEST 1 VW PORTABLE 2021-07-08 04:23:00 Mehdi Abarca [facility] [place] CRITICAL CARE, E/M 2021-07-08 03:57:09 Tevin, [facility] 30-74 MINUTES ECG ED PRELIMINARY 2021-07-08 03:57:09 Tevin [facility] INTERPRETATION ECG 12-LEAD 2021-07-08 03:42:09 Tevin [facility] Plan of Care Planned Activity Planned Date Details Comments Source Future Scheduled 2023-06-01 COVID-19 VACCINE [facility] Test 15:52:52 (#1) [code = COVID-19 VACCINE (#1)] Future Scheduled 2023-06-01 Hepatitis C [facility] Test 15:52:52 screening (procedure) [code = 348249620] Future Scheduled 2023-06-01 Screening for [facility] Test 15:52:52 malignant neoplasm of cervix (procedure) [code = 387958027] Future Scheduled 2023-06-01 BREAST CANCER [facility] Test 15:52:52 SCREENING [code = BREAST CANCER SCREENING] Future Scheduled 2023-06-01 INFLUENZA VACCINE [facility] Test 15:52:52 [code = INFLUENZA VACCINE] Future Scheduled 2022-10-24 [facility] Test 23:07:02 (#1) [code = COVID-19 VACCINE (#1)] Future Scheduled 2022-10-24 [facility] Test 23:07:02 screening (procedure) [code = 275020880] Future Scheduled 2022-10-24 [facility] Test 23:07:02 malignant neoplasm of cervix (procedure) [code = 513265268] Future Scheduled 2022-10-24 BREAST [facility]CER [facility] Test 23:07:02 SCREENING [code = BREAST CANCER SCREENING] Future Scheduled 2022-10-24 [facility]ZA [facility]ACCINE [facility] Test 23:07:02 [code = INFLUENZA VACCINE] Future Scheduled 2022-09-06 [facility]IS B [facility] Test 01:03:37 VACCINES (1 of 3 - 3-dose series) [code = HEPATITIS B VACCINES (1 of 3 - 3-dose series)] Future Scheduled 2022-09-06 [facility]INE [facility] Test 01:03:37 (#1) [code = COVID-19 VACCINE (#1)] Future Scheduled 2022-09-06 [facility] Test 01:03:37 screening (procedure) [code = 907265801] Future Scheduled 2022-09-06 [facility] Test 01:03:37 malignant neoplasm of cervix (procedure) [code = 900499960] Future Scheduled 2022-09-06 BREAST CANCER [facility] Test 01:03:37 SCREENING [code = BREAST CANCER SCREENING] Future Scheduled 2022-09-06 [facility]ZA [facility]ACCINE [facility] Test 01:03:37 [code = INFLUENZA VACCINE] Future Scheduled 2021-11-30 [facility]INE [facility] Test 17:13:06 (1) [code = COVID-19 VACCINE (1)] Future Scheduled 2021-11-30 [facility] Test 17:13:06 screening (procedure) [code = 329741100] Future Scheduled 2021-11-30 [facility] Test 17:13:06 malignant neoplasm of cervix (procedure) [code = 323325611] Future Scheduled 2021-11-30 [facility]ZA [facility]ACCINE [facility] Test 17:13:06 [code = INFLUENZA VACCINE] Encounters Start End Encounter Admission Attending Care Care Encounter Source Date/Time Date/Time Type Type Clinicians Facility Department ID 2021-07-07 2021-07-16 [facility] George [id number] [place] 00:00:00 00:00:00 Encounter SAE [id number] Results Test Description Test Time Test Comments Results Result Comments Source Donaldo Lopez + 1 more item 2021-07-17 00:13:15 Test Item Value Reference Range Interpretation Comme [facility] SUPPLIER NAME (test code = 6415) [facility] SUPPLIER PHONE (test code = 6416) [phone] ORDER STATUS (test code = 6417) Delivery Successful DELIVERY NOTE (test code = 6419) REQUESTED DELIVEY DATE (test code = 6420) 07/16/2021 ITEM DESCRIPTION (test code = 6423) Donaldo Lopez, Adult Qty: 1 EXPECTED DELIVERY DATE (test code = 6421) 07/16/2021 ACTUAL DELIVERY DATE (test code = 6422) 07/16/2021 [facility] [id number] 02:21:12 Test Item Value Reference Range Interpretation Comments POC glucose (test code = 291 mg/dL 65-99 H Ope rator Name: [id number]) Amber Coates ice ID: [id number] able : [facility] 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 combination welder Interpretation (test Abnormal code = 88684-7) [facility] 12 [id number] 23:34:12 Test Item Value Reference Range Interpretation [...] before 07-JUL-2021)-Bakarii peewee Signed By Ashley Brandt ([id number]) on 07/10/2021 6:34:10 PM [facility] and [id number] 10:46:00 Test Item Value Reference Range Interpretation Comments ABO grouping (test code = 883-9) A Rh type (test code = 37418-2) POS Antibody screen (gel) (test code = NEG 890-4) [facility] [id number] 07:54:00 Test Item Value Reference Range Interpretation Comments Urine culture (test SEE COMMENT Bacteriu gwen screen code = 6439871) negative. [facility] ED Preliminary Interpretation - Not an [id number] 03:57:09 Test Item Value Reference Range Interpretation Comments CRUZ (test code = CRUZ) Mehdi Abarca MD 07/08/2021 1:28 [facility] ED Preliminary Interpretation - Not an OrderPerformed by: Mehdi Abarca MDAuthorized by: Mehdi Abarca MD ECG reviewed by ED Physician in the absence of a tile edger: yes Interpretation: Interpretation: abnormal Rate: ECG rate: 107 ECG rate assessment: tachycardic Rhythm: Rhythm: sinus rhythm QRS: QRS axis: Normal QRS intervals: NormalConduction: Conduction: normal ST segments: ST segments: NormalT waves: T waves: inverted Inverted: III and V1 Lab Interpretation Abnormal (test code = 43055-3) [facility]
--- NOTE | 2023-06-01 16:27 | EDPHYS ---
Physician Documentation [facility] Name: Jessica Brannon Age: 42 yrs Sex: Female : 1980 Arrival Date: 06/01/2023 Time: 15:50 Bed 12 Private MD: ED Physician Keaton Flynn HPI: 06/01 16:24 This 42 yrs old Female presents to ER via Unassigned with complaints of snw Chemical Ingestion. 16:24 Onset: The symptoms/episode began/occurred acutely. Associated signs and symptoms: The snw patient has no apparent associated signs or symptoms. The patient has not experienced similar symptoms in the past. The patient has not recently seen a physician. ingestion of food seasoned mistakenly with schmid poison. 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 - Social history:: Smoking status: Patient denies any tobacco usage or history of. ROS: 16:24 Constitutional: Negative for fever, chills, and weight loss, Eyes: Negative for injury, snw pain, redness, and discharge, ENT: Negative for injury, pain, and discharge, Neck: Negative for injury, pain, and swelling, Cardiovascular: Negative for chest pain, palpitations, and edema, Respiratory: Negative for shortness of breath, cough, wheezing, and pleuritic chest pain, Abdomen/GI: Negative for abdominal pain, nausea, vomiting, diarrhea, and constipation, Back: Negative for injury and pain, : Negative for injury, bleeding, discharge, and swelling, MS/Extremity: Negative for injury and deformity, Skin: Negative for injury, rash, and discoloration, Neuro: Negative for headache, weakness, numbness, tingling, and seizure, Psych: Negative for depression, anxiety, suicide ideation, homicidal ideation, and hallucinations. Exam: 16:23 Constitutional: This is a well developed, well nourished patient who is awake, alert, snw and in no acute distress. Head/Face: Normocephalic, atraumatic. Eyes: Pupils equal round and reactive to light, extra-ocular motions intact. Lids and lashes normal. Conjunctiva and sclera are non-icteric and not injected. Cornea within normal limits. Periorbital areas with no swelling, redness, or edema. ENT: Nares patent. No nasal discharge, no septal abnormalities noted. Tympanic membranes are normal and external auditory canals are clear. Oropharynx with no redness, swelling, or masses, exudates, or evidence of obstruction, uvula midline. Mucous membranes moist. Neck: Trachea midline, no thyromegaly or masses palpated, and no cervical lymphadenopathy. Supple, full range of motion without nuchal rigidity, or vertebral point tenderness. No Meningismus. Chest/axilla: Normal chest wall appearance and motion. Nontender with no deformity. No lesions are appreciated. Cardiovascular: Regular rate and rhythm with a normal S1 and S2. No gallops, murmurs, or rubs. Normal PMI, no JVD. No pulse deficits. Respiratory: Lungs have equal breath sounds bilaterally, clear to auscultation and percussion. No rales, rhonchi or wheezes noted. No increased work of breathing, no retractions or nasal flaring. Abdomen/GI: Soft, non-tender, with normal bowel sounds. No distension or tympany. No guarding or rebound. No evidence of tenderness throughout. Back: No spinal tenderness. No costovertebral tenderness. Full range of motion. Skin: Warm, dry with normal turgor. Normal color with no rashes, no lesions, and no evidence of cellulitis. MS/ Extremity: Pulses equal, no cyanosis. Neurovascular intact. Full, normal range of motion. Neuro: Awake and alert, GCS 15, oriented to person, place, time, and situation. Cranial nerves II-XII grossly intact. Motor strength 5/5 in all extremities. Sensory grossly intact. Cerebellar exam normal. Normal gait. Psych: Awake, alert, with orientation to person, place and time. Behavior, mood, and affect are within normal limits. Vital Signs: 16:00 BP 107 / 76; Pulse 77; Resp 18; Temp 98; Pulse Ox 100% ; Weight 99.79 kg; Height 5 ft. ll1 5 in. ; Pain 0/10; 16:23 BP 107 / 76; Pulse 77; Resp 18; Pulse Ox 100% ; Weight 99.79 kg; Height 5 ft. 5 in. ; snw 16:23 Body Mass Index 36.61 (99.79 kg, 165.1 cm) snw 16:00 Pain Scale: Adult ll1 MDM: 16:16 Patient medically screened. snw 16:24 Differential diagnosis: toxic/nontoxic ingestion. Data reviewed: vital signs, nurses snw notes. Counseling: I had a detailed discussion with the patient and/or guardian regarding: the historical points, exam findings, and any diagnostic results supporting the discharge/admit diagnosis, the need for outpatient follow up, for definitive care, to return to the emergency department if symptoms worsen or persist or if there are any questions or concerns that arise at home. Special discussion: Based on the history and exam findings, there is no indication for further emergent testing or inpatient evaluation. I discussed with the patient/guardian the need to see the primary care provider for further evaluation of the symptoms. Administered Medications: No medications were administered Disposition: 17:47 Co-signature as Attending Physician, Keaton Flynn MD I reviewed the patient's care rn provided by the Advanced Practice Provider and agree with the diagnosis and treatment plan. Disposition Summary: 06/01/23 16:26 Discharge Ordered Location: Home snw Condition: Stable snw Diagnosis - Encounter for observation for suspected toxic effect from ingested substance ruled snw out Followup: snw - With: Emergency Department - When: As needed - Reason: Worsening of condition Followup: snw - With: Private Physician - When: 2 - 3 days - Reason: Recheck today's complaints, Continuance of care, Re-evaluation by your physician Discharge Instructions: - Discharge Summary Sheet snw - Nontoxic Ingestion, Adult snw Forms: - Medication Reconciliation Form snw - Thank You Letter snw - Antibiotic Education snw - Prescription Opioid Use snw - Patient Portal Instructions snw Signatures: Rola Guerrero FNP-C MEDIA PRODUCTION MANAGER-Csnw Keaton Flynn MD MD rn Lewis, Lynsay, RN RN ll1 Corrections: (The following items were deleted from the chart) 16:24 16:24 PMHx: Asthma; snw snw 16:24 16:24 PSHx: Appendectomy; snw snw
[2023-06-01 17:04] VITALS: BP 107/76; O2SAT 100
--- NOTE | 2023-06-02 16:52 | ER ---
Nurse's Notes [facility] Name: Jessica Brannon Age: 42 yrs Sex: Female : 1980 Arrival Date: 06/01/2023 Time: 15:50 Bed 12 Private MD: Diagnosis: Encounter for observation for suspected toxic effect from ingested substance ruled out Presentation: 06/01 16:00 Chief complaint: Patient states: Accidentally ingested rat poison on food. Thought it ll1 was garlic seasoning. Coronavirus screen: Vaccine status: Patient reports being unvaccinated. Client denies travel out of the [place] in the last 14 days. At this time, the client does not indicate any symptoms associated with coronavirus-19. Ebola Screen: Patient denies travel to an Ebola-affected area in the 21 days before illness onset. Initial Sepsis Screen: Does the patient meet any 2 criteria? No. Patient's initial sepsis screen is negative. Does the patient have a suspected source of infection? No. Patient's initial sepsis screen is negative. Risk Assessment: Do you want to hurt yourself or someone else? Patient reports no desire to harm self or others. Onset of symptoms was June 01, 2023. 16:00 Method Of Arrival: Ambulatory ll1 16:00 Acuity: JACINTA 5 ll1 17:55 Onset of symptoms was June 01, 2023. ll1 Triage Assessment: 16:00 General: Appears in no apparent distress. Behavior is calm, cooperative, appropriate ll1 for age. General: possible rat poison ingestion. Pain: Denies pain. DATA ANALYTICS ARCHITECT: 16:52 LMP N/A - control method ll1 Historical: - Allergies: 17:51 No Known Drug Allergies; ll1 - PMHx: 17:51 Asthma; ll1 - PSHx: 16:00 None; ll1 - Immunization history:: Client reports having NOT received the Covid vaccine. - Social history:: Smoking status: Patient denies any tobacco usage or history of. Screenin:52 [facility] ED Fall Risk Assessment (Adult) Score/Fall Risk Level 0 - 2 = Low Risk ll1 Oriented to surroundings, Maintained a safe environment, Educated pt \T\ family on fall prevention, incl call for assistance when getting out of bed, Hourly rounding (assess needs \T\ fall precautionary measures) done. Abuse screen: Denies threats or abuse. Nutritional screening: No deficits noted. Tuberculosis screening: No symptoms or risk factors identified. Assessment: 16:50 Reassessment: No changes from previously documented assessment. Patient and/or family ll1 updated on plan of care and expected duration. Pain level reassessed. Patient is alert, oriented x 3, equal unlabored respirations, skin warm/dry/pink. Vital Signs: 16:00 BP 107 / 76; Pulse 77; Resp 18; Temp 98; Pulse Ox 100% ; Weight 99.79 kg; Height 5 ft. ll1 5 in. ; Pain 0/10; 16:23 BP 107 / 76; Pulse 77; Resp 18; Pulse Ox 100% ; Weight 99.79 kg; Height 5 ft. 5 in. ; snw 16:23 Body Mass Index 36.61 (99.79 kg, 165.1 cm) snw 16:00 Pain Scale: Adult ll1 ED Course: 15:54 Patient arrived in ED. rg4 15:58 Rola Guerrero FNP-C is [facility]. snw 15:58 Keaton Flynn MD is Attending Physician. snw 15:58 Arm band placed on Patient placed in an exam room, on a stretcher. ll1 16:52 Patient has correct armband on for positive identification. Bed in low position. Call ll1 light in reach. Provided Education on: n/a. 16:52 No provider procedures requiring assistance completed. Patient did not have IV access ll1 during this emergency room visit. 17:53 Triage completed. ll1 Administered Medications: No medications were administered Medication: 17:55 VIS not applicable for this client. ll1 Outcome: 16:26 Discharge ordered by . snw 16:52 Patient left the ED. me1 16:52 Discharged to home ambulatory. ll1 16:52 Condition: stable 16:52 Discharge instructions given to patient, Instructed on discharge instructions, follow up and referral plans. Demonstrated understanding of instructions, follow-up care. Signatures: Rola Guerrero FNP-C FNP-Gisele Travis rg4 Regla Juarez RN RN ll1 Shira Danielle RN RN me1 Corrections: (The following items were deleted from the chart) 16:24 16:24 PMHx: Asthma; snw snw 16:24 16:24 PSHx: Appendectomy; snw snw
== END 2023-06-01 16:52 | disposition home or self-care (01) ==
LOC: ER 15:50
DX: Z03.6 Encounter for observation for suspected toxic effect from ingested substance ruled out (principal)
CPT/HCPCS: 99282

== ENCOUNTER 2023-11-05 23:43 | Inpatient (IN) | payer OTHER, SELFPAY ==
[2023-11-05] MEDS ORDERED: IPRATROPIUM BROM 0.5MG/2.5ML ONE ×2 (23:48→23:56)
[2023-11-05] MEDS ORDERED: ALBUTEROL 2.5 MG/3 ML NEB SOL ONE (23:48)
[2023-11-05] MEDS ORDERED: dexAMETHasone 10 MG/ML VIAL ONE (23:56)
[2023-11-05] MEDS ORDERED: LEVALBUTEROL 1.25 MG/3 ML NEB ONE (23:56)
[2023-11-05] MEDS ORDERED: METHYLPREDNISOLONE 125 MG INJ ONE (23:56)
[2023-11-05] MEDS ORDERED: FAMOTIDINE 20 MG/2 ML VIAL IV ONE (23:57)
[2023-11-05] MEDS ORDERED: NA CHLORIDE 0.9% 1,000 ML ONE (23:57)
[2023-11-05] MEDS ORDERED: AZITHROMYCIN 500 MG INJ IVPB ONE (23:57)
[2023-11-05] MEDS ORDERED: NA CHLORIDE 0.9% 250 ML ONE (23:57)
[2023-11-05] MEDS ORDERED: CEFTRIAXONE 2000 MG/VIAL ONE (23:57)
[2023-11-06] MEDS ORDERED: Magnesium Sulfate 2gm IVPB 2 G/50 ML BAG IV ONE (00:04)
--- NOTE | 2023-11-06 00:04 | ER ---
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 Coronavirus screen: At this time, the client does not indicate any symptoms associated with coronavirus-19. Ebola Screen: No symptoms or risks identified at this time. Initial Sepsis Screen: Does the patient meet any 2 criteria? HR > 90 bpm. Yes Does the patient have a suspected source of infection? No. Patient's initial sepsis screen is negative. Risk Assessment: Do you want to hurt yourself or someone else? Patient reports no desire to harm self or others. Onset of symptoms was November 05, 2023. Transition of care: patient was not received from another setting of care. 23:55 Method Of Arrival: Wheelchair jb4 23:55 Acuity: JACINTA 2 jb4 Historical: - Allergies: 23:56 No Known Allergies; jb4 - PMHx: 23:56 Asthma; jb4 - Immunization history:: Adult Immunizations not up to date. - Social history:: Smoking status: Patient denies any tobacco usage or history of. - Family history:: not pertinent. Screenin/08 00:57 [facility] ED Fall Risk Assessment (Adult) History of falling in the last 3 months, rv including since admission No falls in past 3 months (0 pts) Score/Fall Risk Level 0 - 2 = Low Risk Oriented to surroundings, Maintained a safe environment, Educated pt \T\ family on fall prevention, incl call for assistance when getting out of bed, Assessed \T\ reinforced patient's understanding of fall precautions. Abuse screen: Denies threats or abuse. Denies injuries from another. Nutritional screening: No deficits noted. Tuberculosis screening: No symptoms or risk factors identified. Assessment: 11/05 23:30 General: Appears uncomfortable, ill, Behavior is calm, cooperative. rv 23:30 Pain: Denies pain. Neuro: Level of Consciousness is awake, alert, obeys commands, rv Oriented to person, place, time, situation. Cardiovascular: Capillary refill < 3 seconds Patient's skin is warm and dry. Rhythm is sinus tachycardia. Respiratory: Airway is patent Respiratory effort is labored, with retractions, Respiratory pattern is tachypnea Breath sounds with wheezes bilaterally. GI: No signs and/or symptoms were reported involving the gastrointestinal system. : No signs and/or symptoms were reported regarding the genitourinary system. 11/06 07:00 Reassessment: see [facility] for further charting. mb9 18:15 Reassessment: Attempted to call report to admitting nurse. No answer. mb9 Vital Signs: 11/05 23:55 BP 183 / 121; Pulse 93; Resp 26; Temp 97.2(TE); Pulse Ox 94% on R/A; Weight 109.32 kg jb4 (M); 11/06 00:57 BP 136 / 75; Pulse 95; Resp 24; Pulse Ox 100% on BiPAP; rv [place] Coma Score: 11/05 23:54 Eye Response: spontaneous(4). Motor Response: obeys commands(6). Verbal Response: shaina oriented(5). Total: 15. 11/06 00:57 Eye Response: spontaneous(4). Motor Response: obeys commands(6). Verbal Response: rv oriented(5). Total: 15. ED Course: 11/05 23:46 Patient arrived in ED. jb4 23:48 Joshua Fuentes MD is Attending Physician. shaina 23:50 Inserted saline lock: 20 gauge in right antecubital area, using aseptic technique. rv Blood collected. 23:56 Triage completed. jb4 23:56 Arm band placed on right wrist. jb4 11/06 00:02 Luis Miguel Lu MD is Hospitalizing Provider. shaina 00:08 XRAY Chest (1 view) In Process Unspecified. EDMS 00:20 Inserted saline lock: 22 gauge in left forearm, using aseptic technique. Blood rv collected. 00:55 Mal Guan RN is Primary Nurse. rv 00:57 Patient has correct armband on for positive identification. Client placed on continuous rv cardiac and pulse oximetry monitoring. NIBP monitoring applied. warehouse and receiving supervisor on. 00:57 No provider procedures requiring assistance completed. rv 01:46 Patient admitted, IV remains in place. rv Administered Medications: 11/05 23:52 Not Given (Other Intervention Used): DuoNeb Nebulize (2.5 mg - 0.5 mg) 3 ml Nebulizer jb4 once 23:52 Drug: DuoNeb Nebulize (2.5 mg - 0.5 mg) 3 ml Nebulizer once {Note: Albuterol and jb4 Atrovent 3:1 given per providers instructions..} Route: Nebulizer; 11/06 01:45 Follow up: Response: No adverse reaction; Wheezing diminished rv 00:12 Drug: Magnesium Sulfate IVPB 2 grams IVPB once over 1 hrs Route: IVPB; Infused Over: 1 tm6 hrs; Site: right antecubital; 01:27 Follow up: IV Status: Completed infusion; IV Intake: 50ml rv 00:13 Drug: MethylPrednisoLONE IVP 125 mg IVP once Route: IVP; Site: right antecubital; tm6 01:46 Follow up: Response: No adverse reaction rv 00:13 Drug: Decadron - Dexamethasone IVP 10 mg IVP once Route: IVP; Site: right antecubital; tm6 01:45 Follow up: Response: No adverse reaction rv 00:13 Drug: Levalbuterol Inhalation 3.75 mg Inhalation once Route: Inhalation; tm6 00:13 Drug: Ipratropium Inhalation Aerosol 0.5 mg Inhalation once Route: Inhalation; tm6 00:13 Drug: NS 0.9% IV 1000 ml IV at 1 bolus Per protocol; 1000 mL bolus Route: IV; Rate: 1 tm6 bolus; Site: right antecubital; :45 Follow up: IV Status: Completed infusion; IV Intake: 1000ml rv 00:13 Drug: Famotidine IVP 20 mg IVP once; dilute with 10 mL 0.9% NaCl; give over 2 minutes tm6 Route: IVP; Site: right antecubital; 01:45 Follow up: Response: No adverse reaction rv 00:30 Drug: Rocephin IV 2 grams IV at per protocol once; Given slow IV push per pharmarcy rv instructions Route: IV; Rate: per protocol; Site: left forearm; 01:35 Follow up: Response: No adverse reaction; IV Status: Completed infusion; IV Intake: rv 100ml 00:30 Drug: Levalbuterol Inhalation 1.25 mg Inhalation once; Give continuous for 1 hr after rv other treatments finish Route: Inhalation; 01:44 Follow up: Response: No adverse reaction; Wheezing diminished rv 01:35 Drug: Zithromax IVPB 500 mg IVPB once over 1 hrs; mix in 250 mL NS Route: IVPB; Infused rv Over: 1 hrs; Site: left forearm; :45 Follow up: IV Status: Infusion continued upon admission rv 01:45 Not Given (not appropriate at this timee): nitroglycerinointment 2 % 1 inches rv Transdermal once Medication: 00:57 VIS not applicable for this client. rv Intake: 01:27 IV: 50ml; Total: 50ml. rv 01:35 IV: 100ml; Total: 150ml. rv 01:45 IV: 1000ml; Total: 1150ml. rv Outcome: 00:03 Decision to Hospitalize by Provider. shaina 01:46 Admitted to ER Hold. Please see [facility] for further documentation. rv 01:46 Condition: good 01:46 Instructed on the need for admit, 20:42 Admitted to Med/surg accompanied by tech, via wheelchair, room 214, with oxygen, with rv chart, Report called to adrián rn 20:42 Patient left the ED. rv Signatures: Dispatcher [employer] EDMS Joshua Fuentes MD MD cha Bryson, James RN RN jb4 Mal Guan RN RN Flores Anaya, RN RN mb9 Debora Abad, RN RN tm6 Corrections: (The following items were deleted from the chart) 11/05 23:51 23:51 DuoNeb Nebulize (2.5 mg - 0.5 mg) 3 ml Nebulizer jbGrant jb4 11/06 18:58 17:56 Reassessment: Attempted to call report to admitting nurse. No answer jermain mb9
--- NOTE | 2023-11-06 00:04 | EDPHYS ---
Physician Documentation [facility] Name: Jessica Brannon Age: 43 yrs Sex: Female : 1980 Arrival Date: 11/05/2023 Time: 23:43 Bed 8 Private MD: ED Physician Joshua Fuentes HPI: 11/05 23:52 This 43 yrs old Female presents to ER via Unassigned with complaints of shaina dyspnea, asthma, hypoxia. 23:54 The patient has shortness of breath at rest, with light activity. Onset: The shaina symptoms/episode began/occurred just prior to arrival. The patient or guardian reports airway noise, cough, difficulty breathing, flu symptoms, arthralgias. Modifying factors: The symptoms are alleviated by nothing. the symptoms are aggravated by nothing. Severity of symptoms: At their worst the symptoms were moderate severe in the emergency department the symptoms are unchanged. Historical: - Allergies: 23:56 No Known Allergies; jb4 - PMHx: 23:56 Asthma; jb4 - Immunization history:: Adult Immunizations not up to date. - Social history:: Smoking status: Patient denies any tobacco usage or history of. - Family history:: not pertinent. ROS: 23:54 Constitutional: Negative for fever, chills, and weight loss, Eyes: Negative for injury, shaina pain, redness, and discharge, ENT: Negative for injury, pain, and discharge, Neck: Negative for injury, pain, and swelling, Abdomen/GI: Negative for abdominal pain, nausea, vomiting, diarrhea, and constipation, Back: Negative for injury and pain, : Negative for injury, bleeding, discharge, and swelling, MS/Extremity: Negative for injury and deformity, Skin: Negative for injury, rash, and discoloration, Neuro: Negative for headache, weakness, numbness, tingling, and seizure, Psych: Negative for depression, anxiety, suicide ideation, homicidal ideation, and hallucinations, Allergy/Immunology: Negative for hives, rash, and allergies, Endocrine: Negative for neck swelling, polydipsia, polyuria, polyphagia, and marked weight changes, Hematologic/Lymphatic: Negative for swollen nodes, abnormal bleeding, and unusual bruising, 23:54 Cardiovascular: Positive for chest pain, with cough, with movement, 23:54 Respiratory: Positive for cough, dyspnea on exertion, shortness of breath, wheezing, inspiratory, expiratory, Exam: 23:54 Constitutional: This is a well developed, well nourished patient who is awake, alert, shaina and in no acute distress. Head/Face: Normocephalic, atraumatic. Eyes: Pupils equal round and reactive to light, extra-ocular motions intact. Lids and lashes normal. Conjunctiva and sclera are non-icteric and not injected. Cornea within normal limits. Periorbital areas with no swelling, redness, or edema. ENT: Nares patent. No nasal discharge, no septal abnormalities noted. Tympanic membranes are normal and external auditory canals are clear. Oropharynx with no redness, swelling, or masses, exudates, or evidence of obstruction, uvula midline. Mucous membranes moist. Neck: Trachea midline, no thyromegaly or masses palpated, and no cervical lymphadenopathy. Supple, full range of motion without nuchal rigidity, or vertebral point tenderness. No Meningismus. Chest/axilla: Normal chest wall appearance and motion. Nontender with no deformity. No lesions are appreciated. Abdomen/GI: Soft, non-tender, with normal bowel sounds. No distension or tympany. No guarding or rebound. No evidence of tenderness throughout. Back: No spinal tenderness. No costovertebral tenderness. Full range of motion. Skin: Warm, dry with normal turgor. Normal color with no rashes, no lesions, and no evidence of cellulitis. MS/ Extremity: Pulses equal, no cyanosis. Neurovascular intact. Full, normal range of motion. Neuro: Awake and alert, GCS 15, oriented to person, place, time, and situation. Cranial nerves II-XII grossly intact. Motor strength 5/5 in all extremities. Sensory grossly intact. Cerebellar exam normal. Normal gait. Psych: Awake, alert, with orientation to person, place and time. Behavior, mood, and affect are within normal limits. 23:54 Cardiovascular: Rate: tachycardic, actual rate is 93 bpm, Rhythm: regular, Pulses: no pulse deficits are appreciated, Heart sounds: normal, Edema: is not appreciated, JVD: is not appreciated, 23:54 Respiratory: moderate respiratory distress is noted, severe repiratory distress is noted, Respirations: labored breathing, that is moderate, Breath sounds: decreased breath sounds, that are moderate, are scattered, are located in both bases, rhonchi, that are mild, are scattered, stridor, is not appreciated, + upper airway congestion. wheezing: inspiratory expiratory 11/06 00:02 ECG was reviewed by the Attending Physician. [facility] Vital Signs: 11/05 23:55 BP 183 / 121; Pulse 93; Resp 26; Temp 97.2(TE); Pulse Ox 94% on R/A; Weight 109.32 kg jb4 (M); 11/06 00:57 BP 136 / 75; Pulse 95; Resp 24; Pulse Ox 100% on BiPAP; rv Jalil Coma Score: 11/05 23:54 Eye Response: spontaneous(4). Motor Response: obeys commands(6). Verbal Response: shaina oriented(5). Total: 15. 11/06 00:57 Eye Response: spontaneous(4). Motor Response: obeys commands(6). Verbal Response: rv oriented(5). Total: 15. MDM: 11/05 23:48 Patient medically screened. [facility] 23:58 Differential diagnosis: Anemia Anxiety Reaction asthma, Bronchitis CHF exacerbation, shaina Chronic Obstructive Pulmonary Disease obstructed airway, tracheal injury, bronchitis, flu, URI, pulmonary edema, reactive airway disease, Sepsis Unstable Angina. Antibiotic administration: Rocephin and Zithromax given. Differential Diagnosis: Obstructed Airway Bronchitis Influenza Upper Respiratory Infection Pharyngitis Otitis Media Allergic Rhinitis Asthma Exacerbation Viral Syndrome Pneumonia. Immunization status:. Data reviewed: vital signs, nurses notes, lab test result(s), EKG, radiologic studies, plain films. Consideration of Admission/Observation Patient was admitted/placed on observation. Escalation of care including admission/observation considered. I considered the following discharge prescriptions or medication management in the emergency department Medications were administered in the Emergency Department. See MAR. Independent interpretation of the following test(s) in the Emergency Department EKG: See my EKG interpretation above. Test considered but Not performed: CT: no ct chest. Historians other than the Patient: Family Member: family informed. Care significantly affected by the following chronic conditions: Obesity, asthma. Counseling: I had a detailed discussion with the patient and/or guardian regarding the historical points, exam findings, and any diagnostic results supporting the discharge/admit diagnosis, lab results, radiology results, the need for further work-up and treatment in the hospital. 11/05 23:50 Order name: Basic Metabolic Panel; Complete Time: 00:51 [facility] 11/05 23:50 Order name: CBC with Diff; Complete Time: 00:37 [facility] 11/05 23:50 Order name: LFT's; Complete Time: 00:51 [facility] 11/05 23:50 Order name: Magnesium; Complete Time: 00:51 [facility] 11/05 23:50 Order name: NT PRO-BNP; Complete Time: 00:51 [facility] 11/05 23:50 Order name: PT-INR; Complete Time: 00:37 [facility] 11/05 23:50 Order name: Troponin HS; Complete Time: 00:51 [facility] 11/05 23:51 Order name: Blood Culture Adult (2) [facility] 11/05 23:51 Order name: Lactate w/ 2H reflex if indic.; Complete Time: 00:51 [facility] 11/05 23:58 Order name: ABG; Complete Time: 00:51 [facility] 11/05 23:58 Order name: COVID-19/FLU A+B jb4 11/06 01:57 Order name: CBC with Automated Diff EDMS 11/06 01:57 Order name: CBC with Automated Diff EDMS 11/06 01:57 Order name: Comprehensive Metabolic Panel EDMS 11/06 01:57 Order name: Comprehensive Metabolic Panel EDMS 11/05 23:50 Order name: XRAY Chest (1 view) [facility] 11/05 23:50 Order name: BIPAP [facility] 11/05 23:50 Order name: EKG; Complete Time: 23:51 [facility] 11/05 23:50 Order name: Cardiac monitoring; Complete Time: 00:01 [facility] 11/05 23:50 Order name: EKG - Nurse/Tech; Complete Time: 00:01 [facility] 11/05 23:50 Order name: IV Saline Lock; Complete Time: 00:14 [facility] 11/05 23:50 Order name: Labs collected and sent; Complete Time: 00:14 [facility] 11/05 23:50 Order name: O2 Per Protocol; Complete Time: 00:01 [facility] 11/05 23:50 Order name: O2 Sat Monitoring; Complete Time: 00:01 [facility] 11/05 23:51 Order name: IV Saline Lock - Large Bore; Complete Time: 00:58 [facility] EC/08 00:02 Rate is 90 beats/min. Rhythm is regular. QRS [place] is Normal. MO interval is normal. QRS shaina interval is normal. QT interval is normal. No Q waves. T waves are Normal. No ST changes noted. Clinical impression: NSR w/ Non-specific ST/T Changes and No evidence of ischemia. Interpreted by me. Reviewed by me. Administered Medications: 11/05 23:52 Not Given (Other Intervention Used): DuoNeb Nebulize (2.5 mg - 0.5 mg) 3 ml Nebulizer jb4 once 23:52 Drug: DuoNeb Nebulize (2.5 mg - 0.5 mg) 3 ml Nebulizer once {Note: Albuterol and jb4 Atrovent 3:1 given per providers instructions..} Route: Nebulizer; 11/06 01:45 Follow up: Response: No adverse reaction; Wheezing diminished rv 00:12 Drug: Magnesium Sulfate IVPB 2 grams IVPB once over 1 hrs Route: IVPB; Infused Over: 1 tm6 hrs; Site: right antecubital; 01:27 Follow up: IV Status: Completed infusion; IV Intake: 50ml rv 00:13 Drug: MethylPrednisoLONE IVP 125 mg IVP once Route: IVP; Site: right antecubital; tm6 01:46 Follow up: Response: No adverse reaction rv 00:13 Drug: Decadron - Dexamethasone IVP 10 mg IVP once Route: IVP; Site: right antecubital; tm6 01:45 Follow up: Response: No adverse reaction rv 00:13 Drug: Levalbuterol Inhalation 3.75 mg Inhalation once Route: Inhalation; tm6 00:13 Drug: Ipratropium Inhalation Aerosol 0.5 mg Inhalation once Route: Inhalation; tm6 00:13 Drug: NS 0.9% IV 1000 ml IV at 1 bolus Per protocol; 1000 mL bolus Route: IV; Rate: 1 tm6 bolus; Site: right antecubital; 01:45 Follow up: IV Status: Completed infusion; IV Intake: 1000ml rv 00:13 Drug: Famotidine IVP 20 mg IVP once; dilute with 10 mL 0.9% NaCl; give over 2 minutes tm6 Route: IVP; Site: right antecubital; 01:45 Follow up: Response: No adverse reaction rv 00:30 Drug: Rocephin IV 2 grams IV at per protocol once; Given slow IV push per pharmarcy rv instructions Route: IV; Rate: per protocol; Site: left forearm; 01:35 Follow up: Response: No adverse reaction; IV Status: Completed infusion; IV Intake: rv 100ml 00:30 Drug: Levalbuterol Inhalation 1.25 mg Inhalation once; Give continuous for 1 hr after rv other treatments finish Route: Inhalation; :44 Follow up: Response: No adverse reaction; Wheezing diminished rv 01:35 Drug: Zithromax IVPB 500 mg IVPB once over 1 hrs; mix in 250 mL NS Route: IVPB; Infused rv Over: 1 hrs; Site: left forearm; :45 Follow up: IV Status: Infusion continued upon admission rv 01:45 Not Given (not appropriate at this timee): nitroglycerinointment 2 % 1 inches rv Transdermal once Disposition Summary: 11/06/23 00:03 Hospitalization Ordered Notes: Hospitalization Status: Inpatient Admission shaina Provider: Luis Miguel Lu cha Condition: Fair shaina Problem: new shaina Symptoms: have improved shaina Bed/Room Type: Standard shaina Location: Telemetry/MedSurg (Inpatient)(11/06/23 17:34) bd Room Assignment: [facility](11/06/23 19:45) Diagnosis - Hypoxemia shaina - Moderate persistent asthma with (acute) exacerbation shaina - Essential (primary) hypertension shaina - Obesity, unspecified shaina - Elevated white blood cell count shaina Forms: - Medication Reconciliation Form shaina - SBAR form shaina - Leadership Thank You Letter shaina Signatures: Dispatcher [employer] [facility] Meche Alexandra Kimberly RN Joshua Blake MD MD cha Bryson, James, RN RN Himanshu Franco RN RN ja1 Mal Guan RN Debora Burotn RN RN tm6 Sherly Harrison pm6 Corrections: (The following items were deleted from the chart) 01: 00:03 Telemetry/MedSurg (Inpatient) shaina pm6 01:01 00:03 shaina pm6 01:15 11/05 23:51 SARS-COV-2 Antigen Rapid+I.LAB.BRZ ordered. [facility] 11/06 01:15 01 23:51 Influenza Screen (A \T\ B)+BA.LAB.BRZ ordered. [facility] 11/06 17:34 01:01 [facility] ER HOLD pm6 bd 17:34 01:01 ERHOLD- pm6 bd 18:15 17:34 214 bd ja1 19:45 18:15 204 [address]1 kl
[2023-11-06 00:28] LABS: Absolute Lymphocytes (CBC) 2.3 K/uL (0.7-4.9); Hematocrit 38.6 % (36.0-45.0); Lymphocytes % 18.5 % (15.3-44.8); MCV 83.2 fL (80-100); MPV 8.5 fL (7.6-11.3); Platelets 272 thou/uL (152-406); Protime INR 1.02; RBC Red Blood Cell Count 4.64 M/uL (3.86-4.86)
[2023-11-06] MEDS ORDERED: NA CHLORIDE 0.9% 100 ML ONE (00:40)
[2023-11-06 00:41] LABS: Blood O2 Saturation 99.3 % (92-98.5)
[2023-11-06 00:41] LABS: ALT/SGPT 48 U/L (13-56); AST/SGOT 23 U/L (15-37); Albumin 3.4 g/dL (3.4-5.0); Alkaline Phosphatase 74 U/L (45-117); BUN Blood Urea Nitrogen 15 mg/dL (7-18); Bicarbonate 28 mEq/L (21-32); Bilirubin Total 0.2 mg/dL (0.2-1.0); Glomerular Filtration Rate 99 ml/min (=/>90); Glucose Level 172 mg/dL (74-106); Magnesium 2.1 mg/dL (1.6-2.4); NT PRO-BNP 23 pg/mL (<125); Potassium 3.8 mEq/L (3.5-5.1); Protein, Total 7.9 g/dL (6.4-8.2); Sodium Level 139 mEq/L (136-145); Troponin High Sensitivity 4.1 pg/mL (<58.9)
[2023-11-06 00:42] LABS: Arterial Blood Carboxyhemoglob 0.6 % (0-1.5)
[2023-11-06 00:48] LABS: Bilirubin Direct < 0.1 mg/dL (0-0.2); Bilirubin Indirect, Calculated ND mg/dL (0.2-0.8)
[2023-11-06] MEDS ORDERED: ALBUTEROL 2.5 MG/3 ML NEB SOL ONE (01:03)
[2023-11-06 01:11] LABS: SARS-COV-2 RT PCR NEGATIVE (NEGATIVE)
[2023-11-06] MEDS ORDERED: ALBUTEROL 2.5 MG/3 ML NEB SOL NEB PRN (01:52)
[2023-11-06] MEDS ORDERED: ACETAMINOPHEN 500 MG TAB PO PRN (01:52)
[2023-11-06] MEDS ORDERED: MORPHINE 2 MG/ML SYR IV PRN (01:52)
[2023-11-06] MEDS ORDERED: ONDANSETRON 4 MG/2 ML VIAL IV PRN (01:52)
--- NOTE | 2023-11-06 01:52 | P.HP ---
Certification for Inpatient Patient admitted to: Inpatient With expected LOS: >2 Midnights Patient will require the following post-hospital care: None Practitioner: I am a practitioner with admitting privileges, knowledge of patient current condition, hospital course, and medical plan of care. Services: Services provided to patient in accordance with Admission requirements found in Title 42 Section 412.3 of the Code of Federal Regulations Patient History Date of Service: 11/06/23 Reason for admission: SOB History of Present Illness: 43-year-old female with past medical history of asthma who was brought to ER with shortness of breath which has been progressively worsening over the last few days. Denies any fever or chills. No sick contacts. Denies any chest pain. Patient is a non-smoker. She started having shortness of breath 3 to 4 days ago and has been progressively worsening associated with cough which is not productive. She has been using inhalers and not getting better and was brought to ER In the ER she was noted to be hypoxic and had to be placed on BiPAP Patient slightly better at the time of interview and was taken off BiPAP. She is being admitted for further management Allergies No Known Drug Allergies Allergy (Verified 12/17/17 18:43) Unknown Home medications list reviewed: Yes Home Medications: D-[employer] Beltre/PE/Br-Phenir [Bromatan-Dm Suspension] 10 ml PO TIDP PRN 12/17/17 Montelukast [Singulair*] 10 mg PO DAILY 07/28/18 Albuterol Neb [Proventil 0.083% Neb Soln] 2.5 mg NEB [id number] #60 amp 07/29/18 Albuterol Sulfate [Proair Hfa] 2 puff IH QIDP PRN #1 hfa.aer.ad 07/29/18 Mometasone/Formoterol [Dulera 200 Mcg/5 Mcg Inhaler] 2 puff IH BID #1 inhaler 07/29/18 predniSONE [Prednisone*] 40 mg PO [id number] #20 tab 07/29/18 - Past Medical/Surgical History Diabetic: No Past Medical History: Reviewed- Non-Contributory -: asthma Past Surgical History: Reviewed- Non-Contributory -: appendectomy - Family History Family History: Reviewed- Non-Contributory - Family History Father -: Heart disease, Hypertension, Stroke Mother -: Heart disease, Diabetes - Social History Smoking Status: Never smoker Alcohol use: No CD- Drugs: No Caffeine use: Yes Review of Systems 10-point ROS is otherwise unremarkable General: Weakness, Malaise Eyes: Unremarkable ENT: Unremarkable Respiratory: Cough, Shortness of Breath, SOB with Excertion, Wheezing Cardiovascular: Unremarkable Gastrointestinal: Unremarkable Genitourinary: Unremarkable Musculoskeletal: Unremarkable Integumentary: Unremarkable Physical Examination - Vital Signs Temperature: 98.6 F Blood Pressure: 136/82 Pulse: 90 Respirations: 19 Pulse Ox (%): 98 - Physical Exam General: Alert, Oriented x3, Cooperative, Moderate distress, Obese HEENT: Atraumatic, Normocephalic Neck: Supple, No Thyromegaly, No LAD Respiratory: Diminished, Crackles/rales, Expiratory wheezes Cardiovascular: No edema, Regular rate/rhythm, Normal S1 S2 Capillary refill: <2 Seconds Gastrointestinal: Soft and benign, W/out hepatosplenomegaly, No ascites Musculoskeletal: No clubbing, No swelling Integumentary: No rashes, No breakdown Neurological: Normal strength at 5/5 x4 extr, Normal tone, Sensation intact, Cranial nerves 3-12 intact, Normal reflexes 2+, Normal affect Lymphatics: No axilla or inguinal lymphadenopathy - Studies Laboratory Data (last 24 hrs) 11/05/23 11/05/23 11/05/23 23:50 23:50 23:50 WBC 12.20 H Hgb 13.0 Hct 38.6 Plt Count 272 PT 11.2 INR 1.02 Sodium 139 Potassium 3.8 BUN 15 Creatinine 0.76 Glucose 172 H Magnesium 2.1 Total Bilirubin 0.2 AST 23 ALT 48 Alkaline Phosphatase 74 Assessment and Plan - Problems (Diagnosis) (1) Acute asthma exacerbation Onset Date: 12/18/17 Current Visit: No Status: Acute Plan: Acute asthma exacerbation with severe persistent asthma Will start on bronchodilators Will start on steroids Oxygen supplementation Maintain saturation more than 92 May need pulmonology consult Qualifiers: Asthma severity: moderate (2) Respiratory distress Onset Date: 07/30/18 Current Visit: No Status: Acute Plan: Acute respiratory distress Acute hypoxic respiratory failure Patient initially was on BiPAP Now on oxygen support Monitor closely on telemetry Maintain oxygen saturation more than 92 (3) Obesity Current Visit: Yes Status: Acute Plan: Advise lifestyle modification Hyperglycemia noted Will get an A1c Possibly metabolic syndrome Discharge Plan: Home Plan to discharge in: 48 Hours - Advance Directives Does patient have a Living Will: No Does patient have a Durable POA for Healthcare: No - Code Status/Comfort Care Code Status: Full Code Time Spent Managing Pts Care (In Minutes): 49
[2023-11-06] MEDS: METHYLPREDNISOLONE 125 MG INJ IV SCH ×4 (02:38→17:17)
[2023-11-06] MEDS ORDERED: MUCINEX DM 12HR.SR TAB PO PRN (02:39)
[2023-11-06] MEDS ORDERED: METHYLPREDNISOLONE 125 MG INJ ONE ×3 (03:07→16:44)
[2023-11-06 03:10] VITALS: BMI 39.9
[2023-11-06] MEDS ORDERED: METHYLPREDNISOLONE 40 MG INJ ONE (05:54)
[2023-11-06] MEDS: DULERA 200/5 (MOMETASONE/FORMOTEROL) INHALER IH SCH ×2 (08:02→22:07)
[2023-11-06] MEDS: MONTELUKAST 10 MG TAB PO SCH (08:05)
--- NOTE | 2023-11-06 08:10 | RAD REPORT ---
EXAM DESCRIPTION: Chest Single View 11/06/2023 12:16 AM TREATMENT COORDINATOR CLINICAL HISTORY: 43 years, Female, Cough;Dyspnea COMPARISON: None FINDINGS: 1 views of the chest was obtained. No prior films are available at this time for compari son. There is decreased lung volume. Mediastinum: The cardiomediastinal silhouette appears normal in size and shape. Lungs: No areas of consolidations or masses are identified. Heart: The heart is normal in size. Aorta: The thoracic aorta demonstrate to be within normal limits. Pulmonary vasculature: The pulmonary vasculature is normal in distribution. Pleura: The costophrenic angles demonstrate to be sharp. Osseous structures: The bony structures demonstrate to be within normal limits. Other: External EKG leads within the qquye-ct-tibc limits diagnosis. IMPRESSION: No acute cardiopulmonary disease. Decreased lung volume. Electronically signed by: Romeo Pinedo MD 11/06/2023 12:25 AM TREATMENT COORDINATOR Due to temporary technical issues with the PACS/Fluency reporting system, reports are being signed by the in house radiologist without review as a courtesy to ensure prompt reporting. The interpreting r adiologist is fully responsible for the content of the report.
[2023-11-06] MEDS: IPRATROPIUM BROM 0.5MG/2.5ML NEB SCH ×3 (09:50→19:00)
--- NOTE | 2023-11-06 12:19 | P.CNS ---
Date of Consult: 11/06/23 Reason for Consult: Asthma exacerbation Chief Complaint: SOB History of Present Illness: Patient is 43 years of age with a history of allergies seeing an allergy doctor treated with sublingual therapy in [place] tree of asthma no recent history of any recurrence or exacerbation uses albuterol as needed apparently she is suddenly started having problems early hours in the morning noticed by daughter patient was wheezing short of breath came here to the emergency denies any fever or chills does not smoke Allergies No Known Drug Allergies Allergy (Verified 12/17/17 18:43) Unknown Home Medications: D-[employer] Beltre/PE/Br-Phenir [Bromatan-Dm Suspension] 10 ml PO TIDP PRN 12/17/17 Montelukast [Singulair*] 10 mg PO DAILY 07/28/18 Albuterol Neb [Proventil 0.083% Neb Soln] 2.5 mg NEB [id number] #60 amp 07/29/18 Albuterol Sulfate [Proair Hfa] 2 puff IH QIDP PRN #1 hfa.aer.ad 07/29/18 Mometasone/Formoterol [Dulera 200 Mcg/5 Mcg Inhaler] 2 puff IH BID #1 inhaler 07/29/18 predniSONE [Prednisone*] 40 mg PO [id number] #20 tab 07/29/18 - Past Medical/Surgical History Diabetic: No -: asthma -: appendectomy - Family History Father Medical History: Heart disease, Hypertension, Stroke Mother Medical History: Heart disease, Diabetes - Social History Smoking Status: Never smoker Alcohol use: No CD- Drugs: No Caffeine use: Yes Place of Residence: Home Review of Systems 10-point ROS is otherwise unremarkable Physical Examination Temp Pulse Resp BP Pulse Ox 98 F 100 H 18 161/93 H 97 11/06/23 11:00 11/06/23 11:00 11/06/23 11:00 11/06/23 11:00 11/06/23 11:00 General: Alert, Oriented x3 Respiratory: Expiratory wheezes Cardiovascular: No edema, Regular rate/rhythm, Normal S1 S2 Gastrointestinal: Normal bowel sounds, Soft and benign Laboratory Data (last 24 hrs) 11/05/23 11/05/23 11/05/23 23:50 23:50 23:50 WBC 12.20 H Hgb 13.0 Hct 38.6 Plt Count 272 PT 11.2 INR 1.02 Sodium 139 Potassium 3.8 BUN 15 Creatinine 0.76 Glucose 172 H Magnesium 2.1 Total Bilirubin 0.2 AST 23 ALT 48 Alkaline Phosphatase 74 - Problems (1) Acute asthma exacerbation Onset Date: 04/09/15 Current Visit: No Status: Resolved Plan: Patient is 43 years of age admitted with asthma exacerbation only she has not had a problem with exacerbations recently patient is only on albuterol at home he is a doctor in [place] for sublingual therapy for asthma patient's chest x-ray is clear oxygenation satisfactory blood pressure is mildly elevated check room air pulse ox plan to discharge home on prednisone 20 mg twice a day for a week addition to Dulera 2 puffs twice a day Qualifiers: Asthma severity: moderate Asthma persistence: persistent Qualified Code(s): J45.41 - Moderate persistent asthma with (acute) exacerbation
--- NOTE | 2023-11-06 12:21 | EKG ---
Test Date: 2023-11-05 Test Time: 23:57:48 Civil Preparedness Officer: VERENICE MEASUREMENT RESULTS: Intervals: Rate: 90 NC: 136 QRSD: 86 QT: 372 QTc: 455 [place]: P: 82 NC: 136 QRS: 91 T: 54 INTERPRETIVE STATEMENTS: Normal sinus rhythm Rightward axis Borderline ECG Compared to ECG 11/14/2022 09:43:24 Right-axis deviation now present Electronically Signed On 11-06-23 12:18:55 BILLBOARD POSTER by Mina Dela Cruz
[2023-11-07] MEDS: METHYLPREDNISOLONE 125 MG INJ IV SCH ×2 (00:56→05:32)
[2023-11-07] MEDS: IPRATROPIUM BROM 0.5MG/2.5ML NEB SCH ×2 (02:22→07:56)
[2023-11-07 04:21] LABS: Absolute Lymphocytes (CBC) 1.5 K/uL (0.7-4.9); Hematocrit 37.1 % (36.0-45.0); Lymphocytes % 7.3 % (15.3-44.8); MCV 83.9 fL (80-100); Platelets 257 thou/uL (152-406); RBC Red Blood Cell Count 4.42 M/uL (3.86-4.86)
[2023-11-07 04:55] LABS: Albumin 2.9 g/dL (3.4-5.0); Bilirubin Total 0.2 mg/dL (0.2-1.0); Potassium 4.3 mEq/L (3.5-5.1); Protein, Total 7.5 g/dL (6.4-8.2)
[2023-11-07 05:21] LABS: Blood Morphology Comment NOT SEEN (NOT SEEN); Platelet Estimate ADEQ
[2023-11-07] MEDS: MONTELUKAST 10 MG TAB PO SCH (08:53)
[2023-11-07] MEDS: DULERA 200/5 (MOMETASONE/FORMOTEROL) INHALER IH SCH (08:54)
--- NOTE | 2023-11-07 11:45 | P.PN ---
Subjective Date of Service: 11/07/23 Chief Complaint: Asthma exacerbation Subjective: Improving (Patient is improving doing well no new complaint) Review of Systems Unremarkable Physical Examination - Vital Signs Temperature: 97.1 F Blood Pressure: 114/58 Pulse: 76 Respirations: 20 Pulse Ox (%): 96 - Physical Exam General: Alert, In no apparent distress, Oriented x3 Cardiovascular: No edema, Regular rate/rhythm, Normal S1 S2 Assessment And Plan - Current Problems (Diagnosis) (1) Acute asthma exacerbation Onset Date: 04/09/15 Current Visit: No Status: Resolved Plan: Patient is 43 years of age admitted with asthma exacerbation doing better plan to discharge home on prednisone 10 mg twice a day for a week patient to continue with Dulera from the hospital albuterol as needed white count is elevated no evidence of sepsis probably from the steroids changed to p.o. prednisone stable for discharge oxygenation satisfactory blood pressure normal Qualifiers: Asthma severity: moderate Asthma persistence: persistent Qualified Code(s): J45.41 - Moderate persistent asthma with (acute) exacerbation
[2023-11-07 14:12] VITALS: O2SAT 98
[2023-11-07 14:53] VITALS: BP 138/83; TEMP 98.1
[2023-11-07] MEDS ORDERED: predniSONE 20 MG TAB PO SCH (21:00)
== END 2023-11-07 13:59 | disposition home or self-care (01) | DRG 202 ==
LOC: ER 23:43 → ERHOLD 11-06 01:52 → 2ND 11-06 20:04
PROVIDERS: ADMIT Family Medicine; ATTEND Hospitalist
PROC: 5A09357 Assistance with Respiratory Ventilation, Less than 24 Consecutive Hours, Continuous Positive Airway Pressure (ICD-10-PCS; principal; 2023-11-06)
DX: J45.41 Moderate persistent asthma with (acute) exacerbation (principal); J96.01 Acute respiratory failure with hypoxia; Z68.41 Body mass index [BMI] 40.0-44.9, adult; I10 Essential (primary) hypertension; E66.9 Obesity, unspecified; Z90.49 Acquired absence of other specified parts of digestive tract
CPT/HCPCS: 0240U; 36415; 71045; 80048; 80053; 80076; 82805; 83605; 83735; 83880; 84484; 85025; 85610; 87040; 93005; 94640; 94660; 94760; 99285; J0696; J1100; J2920; J2930; J3475; J3535; J7030; J7050; J7613; J7614; J7644

== ENCOUNTER 2024-02-27 20:52 | Emergency (ER) | payer OTHER ==
--- NOTE | 2024-02-27 22:06 | RAD REPORT ---
EXAM DESCRIPTION: US - Abdomen Exam Limited - 02/27/2024 9:59 pm CLINICAL HISTORY: ABD PAIN COMPARISON: Chest For Pe Angio dated 11/14/2022 FINDINGS: The gallbladder demonstrates a wall echo shadow sign typically indicating extensive cholel ithiasis. No pericholecystic fluid or gallbladder wall thickening. The common bile duct is normal karena suring 4 mm. The liver demonstrates no findings of intrahepatic biliary dilatation. IMPRESSION: Findings are suggestive of extensive cholelithiasis.
[2024-02-27 22:11] LABS: Absolute Basophils 0.1 K/uL (0-0.5); Absolute Eosinophils 0.3 K/uL (0-0.5); Absolute Lymphocytes (CBC) 3.5 K/uL (0.7-4.9); Absolute Monocytes 1.3 K/uL (0.1-1.3); Absolute Neutrophil 8.7 K/uL (1.8-8.0); Basophils % 0.7 % (0-1.3); Eosinophils % 1.8 % (0-4.4); Hematocrit 39.9 % (36.0-45.0); Hemoglobin 13.3 g/dL (12.0-15.0); Lymphocytes % 25.2 % (15.3-44.8); MCHC 33.2 g/dL (32.0-36.0); MCV 84.4 fL (80-100); MPV 8.2 fL (7.6-11.3); Monocytes % 9.6 % (3.3-12.3); Neutrophils % 62.7 % (41.7-73.7); Nucleated Red Blood Cells % 0.1 % (0-0); Platelets 280 thou/uL (152-406); RBC Red Blood Cell Count 4.73 M/uL (3.86-4.86); Red Cell Distribution Width 15.3 % (12.1-15.2)
[2024-02-27 22:22] LABS: Albumin 3.4 g/dL (3.4-5.0); Albumin/Globulin Ratio 0.8 (1.1-1.8); Anion Gap 5.4 mEq/L (5.0-15.0); Bilirubin Total 0.3 mg/dL (0.2-1.0); Globulin 4.1 g/dL (2.3-3.5); Potassium 3.4 mEq/L (3.5-5.1); Protein, Total 7.5 g/dL (6.4-8.2)
[2024-02-27 23:21] LABS: Specific Gravity 1.012 (1.005-1.030)
[2024-02-27 23:31] LABS: Specific Gravity 1.013 (1.005-1.030); Sqamous Epithelial 20-50 /HPF (None Seen); Urine Bacteria <20 /HPF (<20); Urine Bilirubin NEGATIVE (Negative); Urine Blood Trace (Negative); Urine Clarity Extremely Turbid (Clear); Urine Color Yellow (Yellow); Urine Culture Reflex Order NOT NEEDED; Urine Glucose NEGATIVE (Negative); Urine Ketones NEGATIVE (Negative); Urine Microscopic Reflex YN ORDER UMIC; Urine Mucus Slight /HPF (None Seen); Urine Nitrite NEGATIVE (Negative); Urine Protein NEGATIVE (Negative); Urine Urobilinogen Normal (Normal)
[2024-02-28] MEDS ORDERED: NA CHLORIDE 0.9% 1,000 ML ONE (01:16)
[2024-02-28] MEDS ORDERED: KETOROLAC 30 MG/ML INJ ONE (01:16)
--- NOTE | 2024-02-28 01:58 | ER ---
Nurse's Notes [facility] Name: Jessica Brannon Age: 43 yrs Sex: Female : 1980 Arrival Date: 02/27/2024 Time: 20:52 Bed 5 Private MD: Diagnosis: Other cholelithiasis without obstruction Presentation: 02/26 21:34 Chief complaint: Patient states: sudden upper abdominal pain that started today after as6 eating some soup. Coronavirus screen: At this time, the client does not indicate any symptoms associated with coronavirus-19. Ebola Screen: No symptoms or risks identified at this time. Initial Sepsis Screen: Does the patient meet any 2 criteria? No. Patient's initial sepsis screen is negative. Does the patient have a suspected source of infection? No. Patient's initial sepsis screen is negative. Risk Assessment: Do you want to hurt yourself or someone else? Patient reports no desire to harm self or others. Onset of symptoms was February 27, 2024. 21:34 Method Of Arrival: Ambulatory as6 21:34 Acuity: JACINTA 3 as6 Triage Assessment: 21:36 General: Appears in no apparent distress. uncomfortable, Behavior is calm, cooperative. as6 Pain: Complains of pain in abdomen. GI: Reports upper abdominal pain. [employer] T[employer]ER: 21:36 LMP N/A - Post-menopause, Not as6 Historical: - Allergies: 21:36 No Known Allergies; as6 - PMHx: 21:36 Asthma; as6 - PSHx: 21:36 Appendectomy; as6 - Immunization history:: Adult Immunizations up to date. - Infectious Disease History:: Denies. - Social history:: Smoking status: Patient denies any tobacco usage or history of. Screenin:46 [facility] ED Fall Risk Assessment (Adult) History of falling in the last 3 months, rv including since admission No falls in past 3 months (0 pts) Score/Fall Risk Level 0 - 2 = Low Risk Oriented to surroundings, Maintained a safe environment, Educated pt \T\ family on fall prevention, incl call for assistance when getting out of bed, Assessed \T\ reinforced patient's understanding of fall precautions. Abuse screen: Denies threats or abuse. Denies injuries from another. Nutritional screening: No deficits noted. Tuberculosis screening: No symptoms or risk factors identified. Assessment: 22:46 General: Appears uncomfortable, Behavior is calm, cooperative. Pain: Complains of pain rv in abdomen. Neuro: Level of Consciousness is awake, alert, obeys commands, Oriented to person, place, time, situation. Cardiovascular: Capillary refill < 3 seconds Patient's skin is warm and dry. Respiratory: Airway is patent Respiratory effort is even, unlabored. GI: Bowel sounds present X 4 quads. Abd is soft X 4 quads. Derm: Skin is intact. 02/27 00:41 Reassessment: Patient appears in no apparent distress at this time. No changes from vc1 previously documented assessment. Patient and/or family updated on plan of care and expected duration. Pain level reassessed. Patient is alert, oriented x 3, equal unlabored respirations, skin warm/dry/pink. 01:55 Reassessment: Patient appears in no apparent distress at this time. No changes from vc1 previously documented assessment. Patient and/or family updated on plan of care and expected duration. Pain level reassessed. Patient is alert, oriented x 3, equal unlabored respirations, skin warm/dry/pink. Vital Signs: 02/26 21:34 Pulse 74; Resp 18 S; Temp 97.5; Pulse Ox 100% ; Weight 108.86 kg (R); Height 5 ft. 5 as6 in. (R); Pain 8/10; 21:36 BP 121 / 79; as6 23:00 BP 117 / 65; Pulse 63; Resp 16; Pulse Ox 98% on R/A; me1 02/27 00:39 BP 136 / 86; Pulse 71; Resp 16; Pulse Ox 95% ; vc1 01:30 BP 128 / 77; Pulse 58; Resp 16; Pulse Ox 97% ; vc1 02/26 21:34 Body Mass Index 39.94 (108.86 kg, 165.1 cm) as6 02/26 21:34 Pain Scale: Adult as6 ED Course: 02/26 20:56 Patient arrived in ED. jj6 21:09 Joshua Grier PA is PHCP. cp 21:09 Spencer Singh MD is Attending Physician. cp 21:36 Triage completed. as6 21:36 Arm band placed on. as6 21:50 Inserted saline lock: 20 gauge in right antecubital area, using aseptic technique. as6 Blood collected. 21:51 Lipase Sent. as6 21:51 CMP Sent. as6 21:51 CBC with Diff Sent. as6 22:01 Abdomen Limited US In Process Unspecified. EDMS 22:46 Patient has correct armband on for positive identification. Client placed on continuous rv cardiac and pulse oximetry monitoring. NIBP monitoring applied. 22:46 No provider procedures requiring assistance completed. rv 23:05 Urine collected: clean catch specimen, dannie colored. oe 05 00:38 CT Abd/Pelvis - IV Contrast Only In Process Unspecified. EDMS 01:15 Mal Guan, RN is Primary Nurse. rv 01:57 Jostin Vaughan MD is Referral Physician. cp 02:08 IV discontinued, intact, bleeding controlled, No redness/swelling at site. Pressure rv dressing applied. Administered Medications: 01:19 Drug: Ketorolac IVP 15 mg IVP once Route: IVP; Site: right antecubital; rv 02:07 Follow up: Response: No adverse reaction rv 01:19 Drug: NS 0.9% IV 1000 ml IV at 1 bolus Per protocol; 1000 mL bolus Route: IV; Rate: 1 rv bolus; Site: right antecubital; 02:07 Follow up: IV Status: Completed infusion; IV Intake: 1000ml rv 02:07 Drug: Potassium PO Effervescent Tablet 25 mEq PO once; dissolve in 4 ounces of water or rv juice Route: PO; 02:07 Follow up: Response: Medication administered at discharge. rv Medication: 02/26 22:46 VIS not applicable for this client. rv Intake: 02/27 02:07 IV: 1000ml; Total: 1000ml. rv Outcome: 01:57 Discharge ordered by MD. cp 02:08 Discharged to home ambulatory, rv 02:08 Condition: good 02:08 Discharge instructions given to patient, Instructed on discharge instructions, follow up and referral plans. medication usage, Demonstrated understanding of instructions, follow-up care, medications, Prescriptions given X 3, 02:09 Patient left the ED. pf1 Signatures: Dispatcher [employer] EDMS Joshua Grier PA PA cp Imtiaz Whipple oe Mal Guan, RN RN rv Krista Domingoj6 Ludin Babin RN RN as6 Chichi Bobby RN RN vc1 Sharmin Oakes, RN RN pf1 Shira Danielle, RN RN me1
--- NOTE | 2024-02-28 01:58 | EDPHYS ---
Physician Documentation [facility] Name: Jessica Brannon Age: 43 yrs Sex: Female : 1980 Arrival Date: 02/27/2024 Time: 20:52 Bed 5 Private MD: ED Physician Spencer Singh HPI: 02/26 22:00 This 43 yrs old Female presents to ER via Ambulatory with complaints of cp Abdominal Pain, Low Back Pain. 22:00 The patient presents with abdominal pain in the epigastric area, in the left upper cp quadrant. Onset: The symptoms/episode began/occurred today, after dinner. The symptoms radiate to Associated signs and symptoms: Pertinent positives: nausea, Pertinent negatives: chest pain, constipation, diarrhea, dysuria, fever. The symptoms are described as constant. Severity of pain: in the emergency department the pain is unchanged despite home interventions. 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 - Infectious Disease History:: Denies. - Social history:: Smoking status: Patient denies any tobacco usage or history of. ROS: 22:05 Constitutional: Negative for body aches, chills, fever, poor PO intake, cp 22:05 Eyes: Negative for injury, pain, redness, and discharge, cp 22:05 ENT: Negative for drainage from ear(s), ear pain, sore throat, difficulty swallowing, difficulty handling secretions, 22:05 Cardiovascular: Negative for chest pain, palpitations, 22:05 Respiratory: Negative for cough, shortness of breath, wheezing, 22:05 Abdomen/GI: Positive for abdominal pain, nausea, of the epigastric area and left upper quadrant, Negative for vomiting, diarrhea, constipation, 22:05 Back: Positive for radiated pain, 22:05 Skin: Negative for rash, 22:05 Neuro: Negative for altered mental status, dizziness, headache, numbness, syncope, weakness, 22:05 All other systems are negative, Exam: 22:10 Constitutional: The patient appears in no acute distress, alert, awake, cp non-diaphoretic, non-toxic, well developed, well nourished, obese, uncomfortable, 22:10 Head/Face: Normocephalic, atraumatic. cp 22:10 Eyes: Periorbital structures: appear normal, Conjunctiva: normal, no exudate, no injection, Sclera: no appreciated abnormality, Lids and lashes: appear normal, bilaterally, 22:10 ENT: External ear(s): are unremarkable, Nose: is normal, Mouth: Lips: moist, Oral mucosa: pink and intact, moist, Posterior pharynx: is normal, airway is patent, no erythema, no exudate, 22:10 Neck: ROM/movement: is normal, is supple, without pain, no range of motions limitations, 22:10 Chest/axilla: Inspection: normal, 22:10 Cardiovascular: Rate: normal, Rhythm: regular, Edema: is not appreciated, JVD: is not appreciated, 22:10 Respiratory: the patient does not display signs of respiratory distress, Respirations: normal, no use of accessory muscles, no retractions, labored breathing, is not present, Breath sounds: are clear throughout, no decreased breath sounds, no stridor, no wheezing, 22:10 Abdomen/GI: Inspection: obese Bowel sounds: active, all quadrants, Palpation: soft, in all quadrants, moderate abdominal tenderness, in the epigastric area and left upper quadrant, rebound tenderness, is not appreciated, involuntary guarding, is not appreciated, 22:10 Back: CVA tenderness, is absent, 22:10 Skin: no rash present. Vital Signs: 21:34 Pulse 74; Resp 18 S; Temp 97.5; Pulse Ox 100% ; Weight 108.86 kg (R); Height 5 ft. 5 as6 in. (R); Pain 8/10; 21:36 BP 121 / 79; as6 23:00 BP 117 / 65; Pulse 63; Resp 16; Pulse Ox 98% on R/A; me1 05 00:39 BP 136 / 86; Pulse 71; Resp 16; Pulse Ox 95% ; vc1 01:30 BP 128 / 77; Pulse 58; Resp 16; Pulse Ox 97% ; vc1 02/26 21:34 Body Mass Index 39.94 (108.86 kg, 165.1 cm) as6 02/26 21:34 Pain Scale: Adult as6 MDM: 02/26 21:37 Patient medically screened. 22:00 Differential diagnosis: cholecystitis, Cholelithiasis, diverticulitis, gastritis, cp non-specific abd pain, pancreatitis, Peptic Ulcer Disease, Perf. Duodenal Ulcer, Perf. Gastric Ulcer, Pyelonephritis, Ureterolithiasis, urinary tract infection. 02/27 01:56 Data reviewed: vital signs, nurses notes, lab test result(s), radiologic studies, CT cp scan, ultrasound, and as a result, I will discharge patient. 01:56 I considered the following discharge prescriptions or medication management in the emergency department Medications were administered in the Emergency Department. See MAR. Counseling: I had a detailed discussion with the patient and/or guardian regarding the historical points, exam findings, and any diagnostic results supporting the discharge/admit diagnosis, lab results, radiology results, the need for outpatient follow up, for definitive care, a general surgeon, to return to the emergency department if symptoms worsen or persist or if there are any questions or concerns that arise at home. Response to treatment: the patient's symptoms have markedly improved after treatment, and as a result, I will discharge patient. Special discussion: Based on the patient's Hx, exam, and Dx evaluation, there is no indication for emergent surgery or inpatient Tx. It is understood by the patient/guardian that if the Sx's persist or worsen they need to return immediately for re-evaluation. 02/26 21:44 Order name: CBC with Diff; Complete Time: 23:44 02/26 23:44 Interpretation: Normal except: WBC 13.90; RDW 15.3; NEUT A 8.7. 02/26 21:44 Order name: CMP; Complete Time: 23:44 02/26 23:45 Interpretation: Normal except: K 3.4; CO2 33; GFR 84; GLOB 4.1; A/G 0.8. 02/26 21:44 Order name: Lipase; Complete Time: 23:44 02/26 21:44 Order name: Test, Urine; Complete Time: 23:44 02/26 21:44 Order name: Urinalysis w/ reflexes; Complete Time: 23:44 02/26 21:44 Order name: Abdomen Limited US; Complete Time: 23:44 02/26 23:46 Order name: CT Abd/Pelvis - IV Contrast Only 02/26 21:44 Order name: IV Saline Lock; Complete Time: 21:51 cp 02/26 21:44 Order name: Labs collected and sent; Complete Time: 21:51 cp 02/26 21:44 Order name: NPO; Complete Time: 22:48 cp 02/27 01:57 Order name: PO challenge; Complete Time: 02:01 cp Administered Medications: 01:19 Drug: Ketorolac IVP 15 mg IVP once Route: IVP; Site: right antecubital; rv 02:07 Follow up: Response: No adverse reaction rv 01:19 Drug: NS 0.9% IV 1000 ml IV at 1 bolus Per protocol; 1000 mL bolus Route: IV; Rate: 1 rv bolus; Site: right antecubital; 02:07 Follow up: IV Status: Completed infusion; IV Intake: 1000ml rv 02:07 Drug: Potassium PO Effervescent Tablet 25 mEq PO once; dissolve in 4 ounces of water or rv juice Route: PO; 02:07 Follow up: Response: Medication administered at discharge. rv Disposition: 23:20 Co-signature as Attending Physician, Spencer Singh MD I agree with the assessment sp4 and plan of care. I reviewed the patient's care provided by the Advanced Practice Provider and agree with the diagnosis and treatment plan. Disposition Summary: 02/28/24 01:57 Discharge Ordered Notes: Location: Home cp Problem: new cp Symptoms: have improved cp Condition: Stable cp Diagnosis - Other cholelithiasis without obstruction cp Followup: cp - With: Jostin Vaughan MD - When: 1 - 2 days - Reason: gallstones Discharge Instructions: - Discharge Summary Sheet cp - Cholelithiasis cp Forms: - Medication Reconciliation Form cp - Antibiotic Education cp - Prescription Opioid Use cp - Patient Portal Instructions cp - Leadership Thank You Letter cp Prescriptions: - Ibuprofen 800 mg Oral Tablet - take 1 tablet ORAL route every 8 hours As needed take with food; 30 tablet; cp Refills: 0, Product Selection Permitted - dicyclomine 20 mg Oral tablet - take 1 tablet ORAL route 4 times per day; 30 tablet; Refills: 0, Product cp Selection Permitted - ondansetron 8 mg Oral Tablet,disintegrating - take 1 tablet ORAL route every 12 hours; 20 tablet; Refills: 0, Product cp Selection Permitted Signatures: Dispatcher [employer] EDMS Page, Joshua, PA PA cp Roge, Mal, RN RN rv Ludin Babin RN RN as6 Spencer Singh MD MD sp4
[2024-02-28] MEDS ORDERED: POTASSIUM 25 MEQ EFFERV TAB ONE (02:04)
[2024-02-28 03:01] VITALS: BP 128/77; TEMP 97.5; O2SAT 97
--- NOTE | 2024-02-28 11:51 | RAD REPORT ---
EXAM DESCRIPTION: CT - Abdomen Pelvis W Contrast - 02/28/2024 6:48 am CLINICAL HISTORY: ABD PAIN COMPARISON: None. TECHNIQUE: CT ABDOMEN PELVIS WITH IV CONTRAST on 02/27/2024 11:46 PM CDT This exam was performed according to our departmental dose-optimization program, which includes autom ated exposure control, adjustment of the mA and/or kV according to patient size and/or use of iterati ve reconstruction technique. FINDINGS: Lower lungs are clear. Abdomen: Liver is fatty in attenuation. There is no biliary dilatation. There is a probable gallstone in the gallbladder. The pancreas and spleen are normal in appearance. The adrenal glands and kidneys are unremarkable. Abdominal aorta is normal in course and caliber without aneurysm. There is no free air. There is no r etroperitoneal adenopathy. Pelvis: There is no bowel obstruction. Urinary bladder is unremarkable. There is no free fluid. Uteru s is normal in size. Appendix is not seen. Skeleton: There are no acute osseous findings. No suspicious bony lesions. IMPRESSION: No acute process. Electronically signed by: Zeeshan Bernard MD 02/28/2024 01:29 AM CDT Due to temporary technical issues with the PACS/Fluency reporting system, reports are being signed by the in house radiologist without review as a courtesy to ensure prompt reporting. The interpreting r adiologist is fully responsible for the content of the report.
== END 2024-02-28 02:09 | disposition home or self-care (01) ==
LOC: ER 20:52
DX: K80.80 Other cholelithiasis without obstruction (principal)
CPT/HCPCS: 85025; 81001; 36415; 81025; 83690; 80053; 74177; 76705; Q9967; J7030; 96361; 96374; 99284